=== PATIENT | male | born 1945 | race Caucasian/White ===

== ENCOUNTER 2019-10-29 00:50 | Emergency (ER) | payer MEDICARE ==
--- NOTE | 2019-10-29 01:11 | EDM.PDOC ---
ED HPI GENERAL MEDICAL PROBLEM - General Chief Complaint: Chest Pain Stated Complaint: CHEST PAIN Time Seen by Provider: 10/29/19 01:05 Source of Information: Reports: Patient History Limitations: Reports: No Limitations - History of Present Illness INITIAL COMMENTS - FREE TEXT/NARRATIVE: 74-year-old male presents to the ED after awakening from sleep with severe central chest pain and awareness of heart palpitations. Patient has known severe coronary artery disease having undergone triple coronary bypass surgery in June [address] [place] [address] Farrar. Since that time he has had intermittent bouts of paroxysmal atrial fibrillation. Patient states he awoke with chest pain and it was severe i.e. 10 out of 10. He did take a nitroglycerin tablet which did seem to alleviate a good deal of his pain. He was short of breath on minimal exertion. Perhaps slightly lightheaded and dizzy. Weakness in his lower extremities. Denies missing any of his usual doses of medications. Of note he is on amiodarone 200 mg twice daily ,a very large dose. Is on metoprolol extended release 50 mg daily. Is listed as being on Plavix as well. He is also on Eliquis 5 mg twice daily. Onset: Today Onset Date: 10/28/19 Onset Time: 11:30 Duration: Minutes:, Improving Location: Reports: Chest (Chest pain rating up into his jaw left shoulder and through to his back) Quality: Reports: Ache, Pressure (Deep ache pressure pain) Severity: Severe (Was severe 10 out of 10 now currently 3 out of 10.) Improves with: Reports: Other (Proved with rest and after taking nitroglycerin tablet) Worsens with: Reports: None Context: Reports: Other (Spontaneous occurrence after waking from sleep with this.). Denies: Activity, Exercise, Lifting, Sick Contact, Trauma Associated Symptoms: Reports: Chest Pain, Malaise, Shortness of Breath, Weakness. 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 (see below) (Generalized) Chest Pain Score (Numeric/FACES): 5 - Related Data Allergies Allergy/AdvReac Type Severity Reaction Status Date / Time atorvastatin [From Lipitor] Allergy Muscle Verified 11/11/18 10:36 Aches oxycodone Allergy Cannot Verified 06/04/19 10:36 Remember Home Meds: Home Meds Amiodarone [Cordarone] 5 mg PO BID 07/24/18 [History] Aspirin [[place] Aspirin] 81 mg PO DAILY 07/24/18 [History] Cholecalciferol (Vitamin D3) [Vitamin D3] 5,000 unit PO DAILY 07/24/18 [History] HYDROmorphone [Dilaudid] 4 mg PO Q6H PRN 07/24/18 [History] Metoprolol Succinate [Toprol XL 50mg] 50 mg PO DAILY 07/24/18 [History] Multivitamin [Multivitamins] 1 each PO DAILY 07/24/18 [History] Nitroglycerin [Nitrostat] 0.4 mg SL ASDIRECTED PRN 07/24/18 [History] Rosuvastatin [Crestor] 5 mg PO DAILY 07/24/18 [History] allopurinoL [Zyloprim] 300 mg PO DAILY 07/24/18 [History] Sertraline [Zoloft] 50 mg PO DAILY 10/08/18 [History] Apixaban [Eliquis] 5 mg PO BID 10/29/19 [History] Potassium Chloride [Klor-Con M10] 10 meq PO DAILY 10/29/19 [History] Torsemide [Demadex] 40 mg PO DAILY 10/29/19 [History] Past Medical History Cardiovascular History: Reports: Arrhythmia (Remain positive paroxysmal atrial fibrillation according to the patient), Bypass (Bypass carried out in June [address] Farrar at [facility] in [place]), Heart Failure (Torsemide daily), High Cholesterol, Hypertension, [place], SOB on Exertion Genitourinary History: Reports: BPH (Tamsulosin for this.) Musculoskeletal History: Reports: Back Pain, Chronic, Gout (Severe back pain. On Dilaudid 4 times daily), Osteoarthritis Endocrine/Metabolic History: Reports: Obesity/BMI 30+ Social & Family History - Living Situation & Occupation Living situation: Reports: Occupation: Retired ED ROS GENERAL - Review of Systems Review Of Systems: See Below Constitutional: Reports: Fatigue. Denies: Fever, Chills, Malaise HEENT: Reports: Glasses Respiratory: Reports: Shortness of Breath (Reading). Denies: Wheezing, Pleuritic Chest Pain Cardiovascular: Reports: Chest Pain, Blood Pressure Problem (See history of present illness), Dyspnea on Exertion, Edema, Lightheadedness, Palpitations. Denies: Claudication Endocrine: Reports: Fatigue (Minimally) GI/Abdominal: Reports: No Symptoms, Other (Has an umbilical hernia that does not bother him) : Reports: Frequency, Other ([place] x2BPH) Musculoskeletal: Reports: Back Pain (Severe back pain on pain medicine 4 times daily) Skin: Reports: Bruising (This is easily as he is on Plavix and Eliquis) Neurological: Reports: Dizziness (Dizzy tonight with the paroxysmal atrial fibrillation) Psychiatric: Reports: No Symptoms Hematologic/Lymphatic: Reports: No Symptoms Immunologic: Reports: No Symptoms ED EXAM, GENERAL - Physical Exam Exam: See Below Exam Limited By: No Limitations General Appearance: Alert, WD/WN, Mild Distress, Other (Temperature is 36.5 heart rate was 140 and irregular irregular on the monitor i.e. atrial fibrillation. Respiratory of 20 to 22/min with O2 sats 95% on room air BP 106/ 90) Eye Exam: Bilateral Eye: Normal Inspection, PERRL Throat/Mouth: Normal Inspection, Normal Lips, Normal Oropharynx Head: Atraumatic, Normocephalic Neck: Normal Inspection, Supple, Non-Tender, Full Range of Motion. No: Lymphadenopathy (L), Lymphadenopathy (R) Respiratory/Chest: No Accessory Muscle Use, Respiratory Distress (Tachypnea.), Rales (New faint crackles right base of the lung.) Cardiovascular: No Gallop, No JVD, No Murmur, No Rub, Irregularly Irregular (He is in atrial fibrillation with rapid ventricular rate up to 155/min), Other ( Evidence of midline sternotomy from previous bypass surgery.). No: Normal Peripheral Pulses, Regular Rate, Rhythm (Not palpable in his feet. Obscured by edema) Peripheral Pulses: 1+: Posterior Tibial (L), Posterior Tibial (R), Dorsalis Pedis (L), Dorsalis Pedis (R), 3+: Carotid (L), Carotid (R), Radial (L), Radial (R) GI/Abdominal: Normal Bowel Sounds (Early palpable in his feet due to edema.), Soft, Non-Tender, No Organomegaly, No Mass, Pelvis Stable, Other (He has 2 hernias one is an umbilical hernia which is easily reducible and does not bother him. He has a incisional hernia at the inferior portion of his coronary artery bypass surgery that is still slightly tender.) Extremities: Pedal Edema (2+ pitting edema little worse on the left side as compared to the right.). No: Joint Swelling Neurological: Alert, Oriented, CN II-XII Intact, Normal Cognition Psychiatric: Normal Affect, Normal Mood Skin Exam: Warm, Dry, Intact, Normal Color, No Rash EKG INTERPRETATION EKG Date: 10/29/19 Time: 00:58 Rhythm: A-Fib Rate (Beats/Min): 137 [place]: RAD-Right [place] Deviation (17) P-Wave: Absent QRS: Other (Left posterior fascicular block) ST-T: Other (Wave inversion V1 to V3 ST segment depression V4 ,5 and 6 with ischemia.) QT: Prolonged (Currently prolonged at 568) EKG Interpretation Comments: Abnormal ECG Course - Vital Signs Last Recorded V/S: Last Vital Signs Temp 36.5 C 10/29/19 01:05 Pulse 140 H 10/29/19 01:05 Resp 20 10/29/19 01:05 BP 106/90 10/29/19 01:05 Pulse Ox 95 10/29/19 01:05 - Orders/Labs/Meds Orders: Active Orders 24 hr Category Date Time Status EKG 12 Lead [EKG Documentation Completion] [RC] STAT Care 10/29/19 01:56 Active Oxygen Therapy [RC] ASDIRECTED Care 10/29/19 01:12 Active Peripheral IV Care [RC] . DIRECTED Care 10/29/19 01:13 Active Chest 1V Frontal [CR] Stat Exams 10/29/19 01:12 Taken Diltiazem [Cardizem] 100 mg Med 10/29/19 01:15 Active Sodium Chloride 0.9% [Normal Saline] 100 ml IV TITRATE Sodium Chloride 0.9% [Normal Saline] 1,000 ml Med 10/29/19 01:30 Active IV ASDIRECTED Sodium Chloride 0.9% [Saline Flush] Med 10/29/19 01:13 Active 10 ml FLUSH ASDIRECTED PRN Peripheral IV Insertion Adult [OM.PC] Stat Oth 10/29/19 01:12 Ordered Medication Orders Diltiazem HCl 100 mg/ Sodium (Chloride) 100 mls @ 10 mls/hr IV TITRATE [facility] Last Admin: 10/29/19 01:21 Dose: 10 mg/hr, 10 mls/hr Sodium Chloride (Normal Saline) 1,000 mls @ 100 mls/hr IV ASDIRECTED ADRIANA Last Admin: 10/29/19 01:39 Dose: 100 mls/hr Sodium Chloride (Saline Flush) 10 ml FLUSH ASDIRECTED PRN PRN Reason: Keep Vein Open Last Admin: 10/29/19 01:23 Dose: 10 ml Labs: Laboratory Tests 10/29/19 10/29/19 10/29/19 Range/Units 01:02 01:02 01:02 WBC 9.49 H (4.23-9.07) K/mm3 RBC 5.61 (4.63-6.08) M/mm3 Hgb 14.0 (13.7-17.5) gm/dl Hct 45.3 (40.1-51.0) % MCV 80.7 (79.0-92.2) fl MCH 25.0 L (25.7-32.2) pg MCHC 30.9 L (32.2-35.5) g/dl RDW Std Deviation 54.6 H (35.1-43.9) fL Plt Count 280 (163-337) K/mm3 MPV 10.9 (9.4-12.3) fl Neut % (Auto) 59.4 (34.0-67.9) % Lymph % (Auto) 25.7 (21.8-53.1) % Martin % (Auto) 11.1 (5.3-12.2) % Eos % (Auto) 3.2 (0.8-7.0) Baso % (Auto) 0.5 (0.1-1.2) % Neut # (Auto) 5.64 H (1.78-5.38) K/mm3 Lymph # (Auto) 2.44 (1.32-3.57) K/mm3 Martin # (Auto) 1.05 H (0.30-0.82) K/mm3 Eos # (Auto) 0.30 (0.04-0.54) K/mm3 Baso # (Auto) 0.05 (0.01-0.08) K/mm3 PT 9.9 (9.7-12.0) SECONDS INR 0.93 APTT (22-31) SECONDS Sodium 144 (136-145) mEq/L Potassium 4.0 (3.5-5.1) mEq/L Chloride 108 H (98-107) mEq/L Carbon Dioxide 26 (21-32) mEq/L Anion Gap 14.0 (5-15) BUN 13 (7-18) mg/dL Creatinine 1.3 (0.7-1.3) mg/dL Est Cr Clr Drug Dosing 52.25 mL/min Estimated GFR (MDRD) 54 (>60) mL/min BUN/Creatinine Ratio 10.0 L (14-18) Glucose 119 H (83-115) mg/dL Calcium 8.6 (8.5-10.1) mg/dL Magnesium 2.4 (1.8-2.4) mg/dl Total Bilirubin 0.3 (0.2-1.0) mg/dL AST 18 (15-37) U/L ALT 21 (16-63) U/L Alkaline Phosphatase 63 (46-116) U/L CK-MB (CK-2) 1.0 (0-3.6) ng/ml Troponin I < 0.017 (0.00-0.056) ng/mL NT-Pro-B Natriuret Pep (0-125) pg/mL Total Protein 7.4 (6.4-8.2) g/dl Albumin 3.5 (3.4-5.0) g/dl Globulin 3.9 gm/dL Albumin/Globulin Ratio 0.9 L (1-2) 10/29/19 10/29/19 Range/Units 01:02 01:02 WBC (4.23-9.07) K/mm3 RBC (4.63-6.08) M/mm3 Hgb (13.7-17.5) gm/dl Hct (40.1-51.0) % MCV (79.0-92.2) fl MCH (25.7-32.2) pg MCHC (32.2-35.5) g/dl RDW Std Deviation (35.1-43.9) fL Plt Count (163-337) K/mm3 MPV (9.4-12.3) fl Neut % (Auto) (34.0-67.9) % Lymph % (Auto) (21.8-53.1) % Martin % (Auto) (5.3-12.2) % Eos % (Auto) (0.8-7.0) Baso % (Auto) (0.1-1.2) % Neut # (Auto) (1.78-5.38) K/mm3 Lymph # (Auto) (1.32-3.57) K/mm3 Martin # (Auto) (0.30-0.82) K/mm3 Eos # (Auto) (0.04-0.54) K/mm3 Baso # (Auto) (0.01-0.08) K/mm3 PT (9.7-12.0) SECONDS INR APTT 26 (22-31) SECONDS Sodium (136-145) mEq/L Potassium (3.5-5.1) mEq/L Chloride (98-107) mEq/L Carbon Dioxide (21-32) mEq/L Anion Gap (5-15) BUN (7-18) mg/dL Creatinine (0.7-1.3) mg/dL Est Cr Clr Drug Dosing mL/min Estimated GFR (MDRD) (>60) mL/min BUN/Creatinine Ratio (14-18) Glucose (83-115) mg/dL Calcium (8.5-10.1) mg/dL Magnesium (1.8-2.4) mg/dl Total Bilirubin (0.2-1.0) mg/dL AST (15-37) U/L ALT (16-63) U/L Alkaline Phosphatase (46-116) U/L CK-MB (CK-2) (0-3.6) ng/ml Troponin I (0.00-0.056) ng/mL NT-Pro-B Natriuret Pep 363 H (0-125) pg/mL Total Protein (6.4-8.2) g/dl Albumin (3.4-5.0) g/dl Globulin gm/dL Albumin/Globulin Ratio (1-2) Meds: Medications Generic Name Dose Route Start Last Admin Trade Name Freq PRN Reason Stop Dose Admin Diltiazem HCl 100 mg/ Sodium 100 mls @ 10 mls/hr 10/29/19 01:15 10/29/19 01: 21 Chloride IV 10 mg/hr TITRATE ADRIANA 10 mls/hr Administration 10 MG/HR Sodium Chloride 1,000 mls @ 100 mls/hr 10/29/19 01:30 10/29/19 01:39 Normal Saline IV 100 mls/hr ASDIRECTED ADRIANA Administration Sodium Chloride 10 ml 10/29/19 01:13 10/29/19 01:23 Saline Flush FLUSH 10 ml ASDIRECTED PRN Administration Keep Vein Open Discontinued Medications Generic Name Dose Route Start Last Admin Trade Name Laith PRN Reason Stop Dose Admin Diltiazem HCl 10 mg 10/29/19 01:13 10/29/19 01:21 Cardizem IVPUSH 10/29/19 01:14 10 mg ONETIME ONE Administration - Radiology Interpretation Free Text/Narrative:: 74-year-old male presents to the ED with awakening from sleep with chest pain and a rate irregular rapid pulse. He states this is occurred a few times since he had coronary bypass surgery in June 2018 at. At that time he had triple bypass surgery carried out for significant coronary disease. He is currently on metoprolol extended release or succinate 50 mg daily and amiodarone 200 mg twice daily i.e. very high doses. ECG suggest there may be some ischemia in the apical lateral wall. There is T wave inversion from V1 to V3 as well. It is complicated because of a right bundle branch block and a left posterior fascicular block pattern. Pain is down to 3 out of 10 after he took a nitroglycerin tablet in route to [place] from [place] where he resides. drove him to the hospital. Patient is on Eliquis 5 mg twice daily and Plavix 75 mg daily. States his vital signs are stable at this point time we will try low-dose Cardizem initially with a 10 mg IV bolus and then 5 mg/h if we can bring this rate under control. In between times he usually is in sinus rhythm. History of congestive failure and takes torsemide daily and potassium. - Re-Assessments/Exams Free Text/Narrative Re-Assessment/Exam: 10/29/19 01:36 atrial fibrillation came down from 152 as low as 91 for short period of time after the 10 mg IV bolus. Blood pressure is sustained at 109/ 86. Sats are 97% on room air. He will be started on Cardizem drip at 10 mg/h. We will have to go slow with the Cardizem due to the large dose of amiodarone that he is taking. States his resting heart rate is usually 65. Chest x-ray reveals moderate cardiomegaly with very slight vascular congestion. There are extra wires on the left side of the chest and he states that he has a recorder that is implanted and gets red once monthly. 10/29/19:0148: She has converted back to sinus rhythm in the 60s. He feels markedly improved. I will repeat his ECG in about 10 to 15 minutes 10/29/19: 0205: ECG #2 shows sinus rhythm at 64/min. There is a first-degree AV block. Nonspecific T wave inversion V2. There is an incomplete right bundle branch block pattern. There are Q waves in leads III and aVF suggesting an old inferior wall myocardial infarction. There is decreased voltage throughout the precordial leads. QTC is mildly prolonged at 463. No signs of ischemia 10/29/19 02:12Hematology reveals a normal white count at 9.49 with auto differential of 59.4%. Hemoglobin is 14.0 with hematocrit of 45.3. Platelet count is normal at 280,000. PT is 9.9 with an INR of 0.93. PTT is 26. Sodium 144 with a potassium of 4.0. Chloride 108 with a bicarb of 26. Anion gap is 14.0 BUN is 13 with a creatinine of 1.3. GFR is 54 glucose 119 with a calcium of 8.6. Magnesium normal at 2.4 liver function normal CK-MB fraction is 1.0 with a troponin I of less than 0.017. BNP is 363 minimally elevated total protein 7.4 with an albumin fraction of 3.5. 10/29/19 02:32 I had him walk the halls aggressively with improvement stress test and he had no further chest pressure or pain. His left knee hurting more than anything. He will be discharged to home. He will not change any medications at this point time. 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 Departure - Departure Time of Disposition: 02:32 Disposition: Home, Self-Care 01 Reason for Transfer *Q: Other Condition: Fair Clinical Impression: Paroxysmal atrial fibrillation with RVR, Angina pectoris, unspecified Instructions: Atrial Fibrillation, [id number] Referrals: PCP,Not In Area [Primary Care Provider] - Forms: ED Department Discharge Additional Instructions: Valuation in the emergency room this morning in regards to awakening from sleep with terrible central chest pain. Identified yourself that you had a very irregular pulse. You have a history of paroxysmal atrial fibrillation with rapid ventricular rate. When you came into the ED your heart rate was elevated into the 150s and 160s. You were therefore treated with intravenous medication Cardizem 10 mg IV bolus and then 10 mg/h. Within approximately half hour of the introduction of this medication your heart rate converted back to regular sinus rhythm. He remained in sinus rhythm for the next half hour. Chest pain dissipated completely after conversion back to sinus or regular rhythm. You are already on appropriate medications to thin your blood and prevent stroke i.e. Eliquis. You are also on fairly high doses of amiodarone 200 mg twice daily with metoprolol extended release tablet 50 mg daily both are designed for blood pressure control as well as to keep your heart in regular rhythm. All of the lab work done through the emergency room today was completely normal. There was no abnormalities in the potassium values or the magnesium values. Therefore I have no reason for you to have gone into atrial fibrillation but that is is not uncommon in patients who have coronary artery disease and have had previous heart surgery. Continue all current medications as previously prescribed. Up with truck shop supervisor if any further problems occur or return to the ED. Sepsis Event Note - Focused Exam Vital Signs: Vital Signs Temp Pulse Resp BP Pulse Ox 10/29/19 01:05 36.5 C 140 H 20 106/90 95 Date Exam was Performed: 10/29/19 Time Exam was Performed: 02:49 - My Orders Last 24 Hours: My Active Orders 10/29/19 01:12 Oxygen Therapy [RC] ASDIRECTED Chest 1V Frontal [CR] Stat Peripheral IV Insertion Adult [OM.PC] Stat 10/29/19 01:13 Peripheral IV Care [RC] . DIRECTED Sodium Chloride 0.9% [Saline Flush] 10 ml FLUSH ASDIRECTED PRN 10/29/19 01:15 Diltiazem [Cardizem] 100 mg Sodium Chloride 0.9% [Normal Saline] 100 ml IV TITRATE 10/29/19 01:30 Sodium Chloride 0.9% [Normal Saline] 1,000 ml IV ASDIRECTED 10/29/19 01:56 EKG 12 Lead [EKG Documentation Completion] [RC] STAT - Assessment/Plan Last 24 Hours: My Active Orders 10/29/19 01:12 Oxygen Therapy [RC] ASDIRECTED Chest 1V Frontal [CR] Stat Peripheral IV Insertion Adult [OM.PC] Stat 10/29/19 01:13 Peripheral IV Care [RC] . DIRECTED Sodium Chloride 0.9% [Saline Flush] 10 ml FLUSH ASDIRECTED PRN 10/29/19 01:15 Diltiazem [Cardizem] 100 mg Sodium Chloride 0.9% [Normal Saline] 100 ml IV TITRATE 10/29/19 01:30 Sodium Chloride 0.9% [Normal Saline] 1,000 ml IV ASDIRECTED 10/29/19 01:56 EKG 12 Lead [EKG Documentation Completion] [RC] STAT
[2019-10-29] MEDS ORDERED: Sodium Chloride 0.9% 10 ML Syringe FLUSH PRN (01:13)
[2019-10-29] MEDS ORDERED: Diltiazem 50 MG/10 ML SDV IVPUSH ONE (01:13)
[2019-10-29] MEDS ORDERED: Diltiazem 100 MG in Sodium Chloride 0.9% 100 ML IV SCH (01:15)
[2019-10-29] MEDS ORDERED: Sodium Chloride 0.9% 1,000 ML IV SCH (01:30)
--- NOTE | 2019-10-29 08:50 | CR ---
Chest: Portable view of the chest was obtained. Comparison: No prior chest imaging is available. Heart size is within normal limits for portable technique. Tortuous thoracic aorta is seen. Sternotomy wires are noted. Lungs are clear with no acute parenchymal change. No acute bony abnormality is appreciated. Impression: 1. Prior sternotomy. 2. Nothing acute is otherwise seen on portable chest x-ray. Diagnostic code #2 This report was dictated in MDT
== END 2019-10-29 02:41 | disposition home or self-care (01) ==
LOC: JD.ED 00:50
DX: I48.0 Paroxysmal atrial fibrillation (principal); I20.9 Angina pectoris, unspecified; Z88.8 Allergy status to other drugs, medicaments and biological substances; Z88.5 Allergy status to narcotic agent; E66.9 Obesity, unspecified; Z68.35 Body mass index [BMI] 35.0-35.9, adult; Z79.82 Long term (current) use of aspirin; Z79.899 Other long term (current) drug therapy; Z79.01 Long term (current) use of anticoagulants
CPT/HCPCS: 36415; 71045; 80053; 82553; 83735; 83880; 84484; 85025; 85610; 85730; 93005; 96361; 96365; 99285; J3490; J7030; J7050

== ENCOUNTER 2020-06-10 16:33 | Emergency (ER) | payer MEDICARE ==
--- NOTE | 2020-06-10 16:57 | EDM.PDOC ---
ED HPI GENERAL MEDICAL PROBLEM - General Chief Complaint: Respiratory Problem Stated Complaint: SOB/CHEST PAIN Time Seen by Provider: 06/10/20 16:45 - History of Present Illness INITIAL COMMENTS - FREE TEXT/NARRATIVE: 74-year-old male presents the emergency room generally not feeling well. Patient has a history of coronary artery disease and atrial fibrillation he is on Plavix Eliquis and aspirin. He did take his baby aspirin today. He has intermittent chest discomfort very mild. And he is he is weaker than normal. His noticed that his lower extremity edema is much worse than normal. Patient had coronary bypass surgery nearly 2 years ago, June 23, 2018 he has not had any nausea vomiting or chest discomfort like he had before his bypass surgery. Patient is on multiple medications he assures us that has not changed since his last visit but he cannot recite exactly what he is taking. Generalized Pain Score (Numeric/FACES): 6 - Related Data Allergies Allergy/AdvReac Type Severity Reaction Status Date / Time atorvastatin [From Lipitor] Allergy Muscle Verified 11/11/18 10:36 Aches oxycodone Allergy Cannot Verified 11/11/18 10:36 Remember Home Meds: Home Meds Amiodarone [Cordarone] 5 mg PO BID 07/24/18 [History] Aspirin [[place] Aspirin] 81 mg PO DAILY 07/24/18 [History] Cholecalciferol (Vitamin D3) [Vitamin D3] 5,000 unit PO DAILY 07/24/18 [History] HYDROmorphone [Dilaudid] 4 mg PO Q6H PRN 07/24/18 [History] Metoprolol Succinate [Toprol XL 50mg] 50 mg PO DAILY 07/24/18 [History] Multivitamin [Multivitamins] 1 each PO DAILY 07/24/18 [History] Nitroglycerin [Nitrostat] 0.4 mg SL ASDIRECTED PRN 07/24/18 [History] Rosuvastatin [Crestor] 5 mg PO DAILY 07/24/18 [History] allopurinoL [Zyloprim] 300 mg PO DAILY 07/24/18 [History] Sertraline [Zoloft] 50 mg PO DAILY 10/08/18 [History] Apixaban [Eliquis] 5 mg PO BID 10/29/19 [History] Potassium Chloride [Klor-Con M10] 10 meq PO DAILY 10/29/19 [History] Torsemide [Demadex] 40 mg PO DAILY 10/29/19 [History] Past Medical History HEENT History: Reports: Hard of Hearing, Impaired Vision Other HEENT History: uses hearing aid Cardiovascular History: Reports: Arrhythmia, Bypass, Heart Failure, High Cholesterol, Hypertension, CA, SOB on Exertion Respiratory History: Reports: COPD Genitourinary History: Reports: BPH Musculoskeletal History: Reports: Back Pain, Chronic, Gout, Osteoarthritis Psychiatric History: Reports: Anxiety, Depression Endocrine/Metabolic History: Reports: Obesity/BMI 30+ - Past Surgical History Cardiovascular Surgical History: Reports: Coronary Artery Bypass, Other (See Below) Other Cardiovascular Surgeries/Procedures: venous implant/ filter GI Surgical History: Reports: Cholecystectomy, Colonoscopy, EGD Musculoskeletal Surgical History: Reports: Arthroscopic Knee, Knee Replacement Social & Family History - Tobacco Use Tobacco Use Status *Q: Never Tobacco User - Caffeine Use Caffeine Use: Reports: Coffee - Recreational Drug Use Recreational Drug Use: No - Living Situation & Occupation Living situation: Reports: Occupation: Retired ED ROS GENERAL - Review of Systems Review Of Systems: See Below Constitutional: Reports: Fatigue HEENT: Reports: No Symptoms Respiratory: Reports: Shortness of Breath. Denies: Cough, Sputum Cardiovascular: Reports: Chest Pain (Mild), Edema Endocrine: Reports: No Symptoms GI/Abdominal: Reports: No Symptoms : Reports: No Symptoms Musculoskeletal: Reports: No Symptoms Skin: Reports: No Symptoms Neurological: Reports: No Symptoms Psychiatric: Reports: No Symptoms ED EXAM, GENERAL - Physical Exam Exam: See Below Exam Limited By: No Limitations General Appearance: Alert, No Apparent Distress Head: Atraumatic, Normocephalic Neck: Normal Inspection, Supple, Non-Tender, Full Range of Motion. No: Lymphadenopathy (L), Lymphadenopathy (R) Respiratory/Chest: No Respiratory Distress, Crackles (Noted in both lung bases). No: Rhonchi, Wheezing Cardiovascular: Regular Rate, Rhythm, No Murmur, Other (2+ pitting edema bilateral lower extremities) GI/Abdominal: Normal Bowel Sounds, Soft, Non-Tender, Other (Obese) Back Exam: Normal Inspection. No: CVA Tenderness (L), CVA Tenderness (R) Extremities: Pedal Edema (2+ pitting) Neurological: Alert, Oriented, Normal Cognition Psychiatric: Normal Affect, Normal Mood Skin Exam: Warm, Dry, Intact #1 Interpretation EKG Date: 06/10/20 Rhythm: Other (With first-degree AV block) P-Wave: Present QRS: RBBB ST-T: Other (Nonspecific nondiagnostic changes) QT: Normal Comparison: Other: (Minimal change from October of this last year QRS widening noted in V1 V2 and V3 otherwise no significant change everything points to right bundle branch block) Course - Vital Signs Last Recorded V/S: Last Vital Signs Temp 36.8 C 06/10/20 16:43 Pulse 80 06/10/20 16:43 Resp 15 06/10/20 16:43 BP 190/104 H 06/10/20 16:43 Pulse Ox 96 06/10/20 16:43 - Orders/Labs/Meds Orders: Active Orders 24 hr Category Date Time Status EKG Documentation Completion [RC] ASDIRECTED Care 06/10/20 16:48 Active EKG Documentation Completion [RC] STAT Care 06/10/20 17:38 Active Chest 1V Frontal [CR] Stat Exams 06/10/20 16:48 Taken EKG 12 Lead [EK] Stat Ther 06/10/20 16:48 Ordered Labs: Laboratory Tests 06/10/20 06/10/20 06/10/20 Range/Units 16:45 16:45 16:45 WBC 14.06 H (4.23-9.07) K/mm3 RBC 5.48 (4.63-6.08) M/mm3 Hgb 14.4 (13.7-17.5) gm/dl Hct 46.1 (40.1-51.0) % MCV 84.1 D (79.0-92.2) fl MCH 26.3 (25.7-32.2) pg MCHC 31.2 L (32.2-35.5) g/dl RDW Std Deviation 47.9 H (35.1-43.9) fL Plt Count 283 (163-337) K/mm3 MPV 10.6 (9.4-12.3) fl Neut % (Auto) 77.1 H (34.0-67.9) % Lymph % (Auto) 12.6 L (21.8-53.1) % Dane % (Auto) 7.9 (5.3-12.2) % Eos % (Auto) 1.8 (0.8-7.0) Baso % (Auto) 0.4 (0.1-1.2) % Neut # (Auto) 10.85 H (1.78-5.38) K/mm3 Lymph # (Auto) 1.77 (1.32-3.57) K/mm3 Dane # (Auto) 1.11 H (0.30-0.82) K/mm3 Eos # (Auto) 0.25 (0.04-0.54) K/mm3 Baso # (Auto) 0.05 (0.01-0.08) K/mm3 Manual Slide Review Normal smear PT 10.1 (9.7-12.0) SECONDS INR 0.94 APTT 25.7 (21.7-31.4) SECONDS Sodium 139 (136-145) mEq/L Potassium 3.9 (3.5-5.1) mEq/L Chloride 102 (98-107) mEq/L Carbon Dioxide 27 (21-32) mEq/L Anion Gap 13.9 (5-15) BUN 14 (7-18) mg/dL Creatinine 1.3 (0.7-1.3) mg/dL Est Cr Clr Drug Dosing 55.55 mL/min Estimated GFR (MDRD) 54 (>60) mL/min BUN/Creatinine Ratio 10.8 L (14-18) Glucose 122 H (83-115) mg/dL Calcium 9.2 (8.5-10.1) mg/dL Total Bilirubin 0.5 (0.2-1.0) mg/dL AST 22 (15-37) U/L ALT 29 (16-63) U/L Alkaline Phosphatase 66 (46-116) U/L Troponin I < 0.017 (0.00-0.056) ng/mL NT-Pro-B Natriuret Pep (0-125) pg/mL Total Protein 7.9 (6.4-8.2) g/dl Albumin 3.9 (3.4-5.0) g/dl Globulin 4.0 gm/dL Albumin/Globulin Ratio 1.0 (1-2) 06/10/20 Range/Units 16:45 WBC (4.23-9.07) K/mm3 RBC (4.63-6.08) M/mm3 Hgb (13.7-17.5) gm/dl Hct (40.1-51.0) % MCV (79.0-92.2) fl MCH (25.7-32.2) pg MCHC (32.2-35.5) g/dl RDW Std Deviation (35.1-43.9) fL Plt Count (163-337) K/mm3 MPV (9.4-12.3) fl Neut % (Auto) (34.0-67.9) % Lymph % (Auto) (21.8-53.1) % Dane % (Auto) (5.3-12.2) % Eos % (Auto) (0.8-7.0) Baso % (Auto) (0.1-1.2) % Neut # (Auto) (1.78-5.38) K/mm3 Lymph # (Auto) (1.32-3.57) K/mm3 Dane # (Auto) (0.30-0.82) K/mm3 Eos # (Auto) (0.04-0.54) K/mm3 Baso # (Auto) (0.01-0.08) K/mm3 Manual Slide Review PT (9.7-12.0) SECONDS INR APTT (21.7-31.4) SECONDS Sodium (136-145) mEq/L Potassium (3.5-5.1) mEq/L Chloride (98-107) mEq/L Carbon Dioxide (21-32) mEq/L Anion Gap (5-15) BUN (7-18) mg/dL Creatinine (0.7-1.3) mg/dL Est Cr Clr Drug Dosing mL/min Estimated GFR (MDRD) (>60) mL/min BUN/Creatinine Ratio (14-18) Glucose (83-115) mg/dL Calcium (8.5-10.1) mg/dL Total Bilirubin (0.2-1.0) mg/dL AST (15-37) U/L ALT (16-63) U/L Alkaline Phosphatase (46-116) U/L Troponin I (0.00-0.056) ng/mL NT-Pro-B Natriuret Pep 293 H (0-125) pg/mL Total Protein (6.4-8.2) g/dl Albumin (3.4-5.0) g/dl Globulin gm/dL Albumin/Globulin Ratio (1-2) Meds: Medications Discontinued Medications Generic Name Dose Route Start Last Admin Trade Name Laith PRN Reason Stop Dose Admin Aspirin 324 mg 06/10/20 17:05 06/10/20 17:18 Aspirin PO 06/10/20 17:06 324 mg ONETIME ONE Administration Furosemide 60 mg 06/10/20 17:05 06/10/20 17:18 Lasix IVPUSH 06/10/20 17:06 60 mg NOW ONE Administration Potassium Chloride 40 meq 06/10/20 18:38 Klor-Con M20 PO 06/10/20 18:39 ONETIME ONE - Re-Assessments/Exams Free Text/Narrative Re-Assessment/Exam: 06/10/20 17:28 I ordered Lasix and the patient just received it. I did discuss with the patient how he is feeling says is feeling a lot better clearly Lasix does not have enough time to do anything. Chest x-ray was done which shows some small bilateral pleural effusions subtle pulmonary congestion. And cardiomegaly. 06/10/20 18:34 Patient has well over 700 cc out and feels much much better he is having no suggestion of any chest discomfort tightness or shortness of breath. 06/10/20 19:15 Patient has had another 600 cc out in addition to over 700 cc he had out earlier he continues to feel better and would like to go home. We will discharge him home no change in his current medications he should follow-up with his regular doctor this next week. Departure - Departure Time of Disposition: 19:15 Disposition: Home, Self-Care 01 Clinical Impression: Congestive heart failure - Discharge Information Referrals: PCP,Not In Area [Primary Care Provider] - Forms: ED Department Discharge Additional Instructions: Return to the emergency room with any questions problems or worsening symptoms. Follow-up with your regular physician or your heart doctor this next week. Continue all your current medications as before. Sepsis Event Note (ED) - Evaluation Sepsis Screening Result: No Definite Risk - Focused Exam Vital Signs: Vital Signs Temp Pulse Resp BP Pulse Ox 06/10/20 16:43 36.8 C 80 15 190/104 H 96 - My Orders Last 24 Hours: My Active Orders 06/10/20 16:48 EKG Documentation Completion [RC] ASDIRECTED Chest 1V Frontal [CR] Stat EKG 12 Lead [EK] Stat 06/10/20 17:38 EKG Documentation Completion [RC] STAT - Assessment/Plan Last 24 Hours: My Active Orders 06/10/20 16:48 EKG Documentation Completion [RC] ASDIRECTED Chest 1V Frontal [CR] Stat EKG 12 Lead [EK] Stat 06/10/20 17:38 EKG Documentation Completion [RC] STAT
[2020-06-10] MEDS ORDERED: Aspirin 81 MG Tab.Chew PO ONE (17:05)
[2020-06-10] MEDS ORDERED: Furosemide 40 MG/4 ML VIAL IVPUSH ONE (17:05)
[2020-06-10] MEDS ORDERED: Potassium Chloride 20 MEQ Tab.ER PO ONE (18:38)
--- NOTE | 2020-06-11 11:28 | CR ---
Chest: Portable view of the chest was obtained. Comparison: Prior chest x-ray of 10/29/19. Findings: Previous sternotomy is noted. Heart is within normal limits for portable technique. Tortuous thoracic aorta is seen. Lungs show no acute parenchymal change. Bony structures show prior surgery within the left shoulder. Impression: 1. Findings as noted above. 2. Nothing acute is appreciated. Diagnostic code #2
== END 2020-06-10 19:38 | disposition home or self-care (01) ==
LOC: JD.ED 16:33
DX: I11.0 Hypertensive heart disease with heart failure (principal); I50.9 Heart failure, unspecified; E78.00 Pure hypercholesterolemia, unspecified; I48.91 Unspecified atrial fibrillation; I25.2 Old myocardial infarction; J44.9 Chronic obstructive pulmonary disease, unspecified; F41.9 Anxiety disorder, unspecified; F32.9 Major depressive disorder, single episode, unspecified; E66.9 Obesity, unspecified; Z68.39 Body mass index [BMI] 39.0-39.9, adult; Z95.1 Presence of aortocoronary bypass graft; Z88.8 Allergy status to other drugs, medicaments and biological substances; Z88.5 Allergy status to narcotic agent; Z79.82 Long term (current) use of aspirin; Z79.899 Other long term (current) drug therapy; Z79.01 Long term (current) use of anticoagulants; Z79.02 Long term (current) use of antithrombotics/antiplatelets
CPT/HCPCS: 36415; 71045; 80053; 83880; 84484; 85025; 85610; 85730; 93005; 96374; 99285; A9270; J1940; 93010; 99284

== ENCOUNTER 2020-07-29 18:18 | Emergency (ER) | payer MEDICARE ==
[2020-07-29] MEDS ORDERED: Diltiazem 50 MG/10 ML SDV IVPUSH ONE ×2 (18:35→19:01)
--- NOTE | 2020-07-29 18:39 | EDM.PDOC ---
<Gil Giron - Last Filed: 07/29/20 22:48> ED HPI GENERAL MEDICAL PROBLEM - General Chief Complaint: Chest Pain Stated Complaint: CHEST PAIN /SWEATING/NECK PAIN Time Seen by Provider: 07/29/20 18:24 - Related Data Allergies Allergy/AdvReac Type Severity Reaction Status Date / Time atorvastatin [From Lipitor] Allergy Muscle Verified 07/29/20 18:31 Aches oxycodone Allergy Cannot Verified 07/29/20 18:31 Remember Home Meds: Home Meds Aspirin [Piatt Aspirin] 81 mg PO DAILY 07/24/18 [History] Cholecalciferol (Vitamin D3) [Vitamin D3] 5,000 unit PO DAILY 07/24/18 [History] HYDROmorphone [Dilaudid] 4 mg PO Q6H PRN 07/24/18 [History] Metoprolol Succinate [Toprol XL 50mg] 50 mg PO DAILY 07/24/18 [History] Multivitamin [Multivitamins] 1 each PO DAILY 07/24/18 [History] Nitroglycerin [Nitrostat] 0.4 mg SL ASDIRECTED PRN 07/24/18 [History] Rosuvastatin [Crestor] 5 mg PO DAILY 07/24/18 [History] Sertraline [Zoloft] 50 mg PO DAILY 10/08/18 [History] Apixaban [Eliquis] 5 mg PO BID 10/29/19 [History] Potassium Chloride [Klor-Con M10] 10 meq PO DAILY 10/29/19 [History] Torsemide [Demadex] 40 mg PO DAILY 10/29/19 [History] amLODIPine [Norvasc] 2.5 mg PO DAILY 07/29/20 [History] dilTIAZem HCL [Diltiazem 24Hr ER] 1 cap PO QAM #14 cap.er.24h 07/29/20 [Rx] Course - Re-Assessments/Exams Free Text/Narrative Re-Assessment/Exam: 07/29/20 21:[address] Segal. 07/29/20 22:48 The patient's heart rate fell under 100, on average, more than an hour ago, however, it would initially go up again if the patient got up, however, his Cardizem drip was subsequently discontinued, and his heart rate is currently 88 bpm while the patient is on the gurney, but up to 145 when he stood up. 07/29/20 23:00 The above situation was discussed with the patient and his . The patient states that he has been on oral diltiazem in the past. 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 Ziegler, had talked about putting him back on it, but for what ever reason did not. I think the patient would be best served if I were to start him on some diltiazem CD 120 mg here in the ED, then submit a prescription for the same, that he can start tomorrow morning. I would then have him contact Dr. Ziegler's office first thing Saturday. Both the patient and his are agreeable with this plan. Departure - Departure Time of Disposition: 23:02 Disposition: Home, Self-Care 01 Condition: Good Clinical Impression: Paroxysmal atrial fibrillation with RVR Prescriptions: dilTIAZem HCL [Diltiazem 24Hr ER] 1 cap PO QAM #14 cap.er.24h Instructions: Atrial Fibrillation, [id number] Referrals: Nathen Nieto MD [Ordering Only Provider] - Jackie Ziegler MD [Ordering Only Provider] - Forms: ED Department Discharge Additional Instructions: You were seen in the emergency room for a rapid heartbeat with chest discomfort lightheadedness, and sweatiness. Work-up in the ER included numerous blood tests, a chest x-ray, and an ECG. Your work-up found you to be in atrial fibrillation with a rapid ventricular response. The remainder of your work-up was unremarkable. Your heart rate was brought under control with IV diltiazem, however, once it was discontinued, your heart rate would go up again whenever you stood up. You have therefore been started on long-acting oral diltiazem CD. A prescription for diltiazem CD has been sent to the [facility], located just south and across the [address] from [facility]. Take 1 capsule of diltiazem CD every morning, starting tomorrow morning, 07/30/2020, as prescribed. Contact the office of your outside installation machinist, Dr. Jackie Ziegler, first thing 08/01/2020, to notify her of the current situation, and be sure that she wants you to continue on the diltiazem CD. If any other problems, please do not hesitate to return to the ER. <Tacho Segal - Last Filed: 08/01/20 07:11> ED HPI GENERAL MEDICAL PROBLEM - General Source of Information: Reports: Patient History Limitations: Reports: No Limitations - History of Present Illness INITIAL COMMENTS - FREE TEXT/NARRATIVE: 75-year-old male attends the ED with palpitations in his chest with rapid heart rate. He states it started about 15 minutes before coming to the ED. He has experienced similar events on 3 or 4 occasions since his triple bypass surgery was carried out in June [address] [place] [address] Farrar. He has intermittent bouts of atrial fibrillation with RVR. Associated left-sided precordial chest discomfort with no radiation to his back neck or shoulder. Lightheaded and dizzy. Broke out in a cold sweat. On arrival in the ED his heart rate is in the 150s with wide-complex tachycardia due to a right bundle branch block. I checked my notes and I have used Cardizem in the past to bring his rhythm under control. Of note he is on low-dose amiodarone as well. He states he felt well up until this event occurred. It started about 20 minutes after eating his supper meal. No associated nausea or vomiting at this time. Patient denies any history of COVID-19 illness. He states no recent changes to any of his medications. Of note the patient remains on Eliquis 5 mg twice daily because of paroxysmal atrial fib. Onset: Today, Sudden Onset Date: 07/29/20 Onset Time: 18:15 Duration: Minutes: Location: Reports: Chest (Aware of palpitations with rapid heart rate associate with left precordial chest discomfort development of diaphoresis and mild lightheadedness. Associated mild shortness of breath as well.) Quality: Reports: Other (Palpitations with rapid heart rate with left precordial chest discomfort) Severity: Moderate Improves with: Reports: None Worsens with: Reports: None Context: Denies: Activity, Exercise, Lifting, Sick Contact, Trauma, Other Associated Symptoms: Reports: Chest Pain, Diaphoresis, Shortness of Breath, Weakness. 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 None.) Chest Pain Score (Numeric/FACES): 6 Past Medical History HEENT History: Reports: Hard of Hearing, Impaired Vision Other HEENT History: uses hearing aid Cardiovascular History: Reports: Afib (Paroxysmal atrial fibrillation with rapid ventricular rate), Arrhythmia, Bypass (Triple bypass [place] Dr. [place] Heart Failure, High Cholesterol, Hypertension, [place], SOB on Exertion Respiratory History: Reports: COPD Genitourinary History: Reports: BPH Musculoskeletal History: Reports: Back Pain, Chronic, Gout, Osteoarthritis Psychiatric History: Reports: Anxiety, Depression Endocrine/Metabolic History: Reports: Obesity/BMI 30+ - Past Surgical History Cardiovascular Surgical History: Reports: Coronary Artery Bypass, Other (See Below) Other Cardiovascular Surgeries/Procedures: venous implant/ filter GI Surgical History: Reports: Cholecystectomy, Colonoscopy, EGD Musculoskeletal Surgical History: Reports: Arthroscopic Knee, Knee Replacement Social & Family History - Caffeine Use Caffeine Use: Reports: Coffee - Living Situation & Occupation Living situation: Reports: Occupation: Retired ED ROS GENERAL - Review of Systems Review Of Systems: See Below Constitutional: Reports: Malaise, Weakness, Fatigue. Denies: Fever, Chills, Decreased Appetite (See onset of this illness.), Weight Loss HEENT: Reports: Glasses Respiratory: Reports: Shortness of Breath. Denies: Wheezing, Pleuritic Chest Pain (Gain with onset of illness today.), Cough, Sputum, Hemoptysis Cardiovascular: Reports: Chest Pain, Blood Pressure Problem (Precordial discomfort.), Dyspnea on Exertion (edema ), Edema (Chronic lower extremity occasional lightheadedness if he gets up too fast ), Lightheadedness (Usually well controlled with the medicines he is on.), Palpitations (Sometimes ). Denies: Claudication, Orthopnea Endocrine: Reports: Fatigue (on occasion.) GI/Abdominal: Reports: No Symptoms : Reports: Frequency, Other (Teary at times) Musculoskeletal: Reports: Neck Pain, Shoulder Pain, Back Pain (x2 or 3.), Joint Pain (Hips at times.) Skin: Reports: No Symptoms, Other (No chronic dermatoses.) Neurological: Reports: Dizziness (Usual dizziness with standing up too fast.) Psychiatric: Reports: No Symptoms Hematologic/Lymphatic: Reports: No Symptoms Immunologic: Reports: No Symptoms ED EXAM, GENERAL - Physical Exam Exam: See Below Exam Limited By: No Limitations General Appearance: Alert, WD/WN, Mild Distress, Other (She is diaphoretic and cool to touch. Temperature is 35.9. Heart rate 160 and on the monitor shows a wide-complex irregular tachycardia suggestive of atrial fibrillation with RVR. Respiratory was 17 with O2 sats 94% on room air BP elevated 121 105. It may not be correct since the pulse pressure is so close together.) Eye Exam: Bilateral Eye: Normal Inspection (No blepharal pallor or scleral icterus.), PERRL Throat/Mouth: Normal Inspection, Normal Lips, Normal Teeth, Normal Oropharynx Head: Atraumatic, Normocephalic Neck: Normal Inspection, Supple, Non-Tender, Full Range of Motion, Lymphadenopathy (L). No: Lymphadenopathy (R), Thyromegaly Respiratory/Chest: No Respiratory Distress, Lungs Clear, Normal Breath Sounds, No Accessory Muscle Use Cardiovascular: Regular Rate, Rhythm, No Edema, No Gallop, No Murmur, No Rub, Tachycardia, Irregularly Irregular (Examination reveals an irregular irregular tachycardia and the monitor is suggestive of atrial fibrillation with RVR) Peripheral Pulses: 1+: Posterior Tibial (L) (Pulses in his feet are difficult to feel due to edema both), Posterior Tibial (R), Dorsalis Pedis (L), Dorsalis Pedis (R), 2+: Carotid (L), Carotid (R) GI/Abdominal: Normal Bowel Sounds ( lower extremities.), Soft, Non-Tender, No Organomegaly, No Mass, Pelvis Stable, Other (He has evidence of a previous laparoscopic cholecystectomy) (Male) Exam: No Hernia Back Exam: Normal Inspection. No: CVA Tenderness (L), CVA Tenderness (R) Extremities: Normal Range of Motion, Non-Tender, Pedal Edema Neurological: Alert, Oriented, CN II-XII Intact, Normal Cognition, Normal Gait #1 Interpretation EKG Date: 07/29/20 Time: 18:23 Rhythm: A-Fib Rate (Beats/Min): 148 [place]: RAD-Right [place] Deviation (156 degrees) P-Wave: Absent QRS: RBBB (Patient has a right bundle branch block pattern and thus a wide- complex tachycardia is evident) ST-T: Other (ST segment depression V2 to V6 lead I and aVL also involved. Sole jones secondary to rapid rate) QT: Prolonged Course - Vital Signs Last Recorded V/S: Last Vital Signs Temp 35.9 C L 07/29/20 18:24 Pulse 108 H 07/29/20 23:23 Resp 17 07/29/20 18:24 BP 126/70 07/29/20 23:23 Pulse Ox 94 L 07/29/20 18:24 - Orders/Labs/Meds Labs: Laboratory Tests 07/29/20 07/29/20 07/29/20 Range/Units 18:31 18:31 18:31 WBC 11.57 H (4.23-9.07) K/mm3 RBC 5.37 (4.63-6.08) M/mm3 Hgb 14.0 (13.7-17.5) gm/dl Hct 44.8 (40.1-51.0) % MCV 83.4 (79.0-92.2) fl MCH 26.1 (25.7-32.2) pg MCHC 31.3 L (32.2-35.5) g/dl RDW Std Deviation 45.7 H (35.1-43.9) fL Plt Count 231 (163-337) K/mm3 MPV 10.2 (9.4-12.3) fl Neut % (Auto) 69.9 H (34.0-67.9) % Lymph % (Auto) 15.8 L (21.8-53.1) % [place] % (Auto) 8.9 (5.3-12.2) % Eos % (Auto) 5.0 (0.8-7.0) Baso % (Auto) 0.2 (0.1-1.2) % Neut # (Auto) 8.09 H (1.78-5.38) K/mm3 Lymph # (Auto) 1.83 (1.32-3.57) K/mm3 [place] # (Auto) 1.03 H (0.30-0.82) K/mm3 Eos # (Auto) 0.58 H (0.04-0.54) K/mm3 Baso # (Auto) 0.02 (0.01-0.08) K/mm3 Manual Slide Review Normal smear PT 10.0 (9.7-12.0) SECONDS INR 0.93 APTT 26.5 (21.7-31.4) SECONDS Sodium 142 (136-145) mEq/L Potassium 3.5 (3.5-5.1) mEq/L Chloride 105 (98-107) mEq/L Carbon Dioxide 24 (21-32) mEq/L Anion Gap 16.5 H (5-15) BUN 12 (7-18) mg/dL Creatinine 1.2 (0.7-1.3) mg/dL Est Cr Clr Drug Dosing 55.76 mL/min Estimated GFR (MDRD) 59 (>60) mL/min BUN/Creatinine Ratio 10.0 L (14-18) Glucose 199 H (83-115) mg/dL Calcium 9.1 (8.5-10.1) mg/dL Magnesium 2.1 (1.8-2.4) mg/dl Total Bilirubin 0.4 (0.2-1.0) mg/dL AST 16 (15-37) U/L ALT 25 (16-63) U/L Alkaline Phosphatase 65 (46-116) U/L CK-MB (CK-2) < 0.5 (0-3.6) ng/ml Troponin I < 0.017 (0.00-0.056) ng/mL C-Reactive Protein 4.0 H* (<1.0) mg/dL NT-Pro-B Natriuret Pep (0-125) pg/mL Total Protein 7.2 (6.4-8.2) g/dl Albumin 3.5 (3.4-5.0) g/dl Globulin 3.7 gm/dL Albumin/Globulin Ratio 1.0 (1-2) Urine Color (Yellow) Urine Appearance (Clear) Urine pH (5.0-8.0) Ur Specific [place] (1.005-1.030) Urine Protein (Negative) Urine Glucose (UA) (Negative) Urine Ketones (Negative) Urine Occult Blood (Negative) Urine Nitrite (Negative) Urine Bilirubin (Negative) Urine Urobilinogen (0.2-1.0) Ur Leukocyte Esterase (Negative) Urine RBC (0-5) /hpf Urine WBC (0-5) /hpf Ur Squamous Epith Cells (0-5) /hpf Urine Bacteria (FEW) /hpf Urine Mucus (FEW) /hpf 07/29/20 07/29/20 Range/Units 18:31 20:30 WBC (4.23-9.07) K/mm3 RBC (4.63-6.08) M/mm3 Hgb (13.7-17.5) gm/dl Hct (40.1-51.0) % MCV (79.0-92.2) fl MCH (25.7-32.2) pg MCHC (32.2-35.5) g/dl RDW Std Deviation (35.1-43.9) fL Plt Count (163-337) K/mm3 MPV (9.4-12.3) fl Neut % (Auto) (34.0-67.9) % Lymph % (Auto) (21.8-53.1) % [place] % (Auto) (5.3-12.2) % Eos % (Auto) (0.8-7.0) Baso % (Auto) (0.1-1.2) % Neut # (Auto) (1.78-5.38) K/mm3 Lymph # (Auto) (1.32-3.57) K/mm3 [place] # (Auto) (0.30-0.82) K/mm3 Eos # (Auto) (0.04-0.54) K/mm3 Baso # (Auto) (0.01-0.08) K/mm3 Manual Slide Review PT (9.7-12.0) SECONDS INR APTT (21.7-31.4) SECONDS Sodium (136-145) mEq/L Potassium (3.5-5.1) mEq/L Chloride (98-107) mEq/L Carbon Dioxide (21-32) mEq/L Anion Gap (5-15) BUN (7-18) mg/dL Creatinine (0.7-1.3) mg/dL Est Cr Clr Drug Dosing mL/min Estimated GFR (MDRD) (>60) mL/min BUN/Creatinine Ratio (14-18) Glucose (83-115) mg/dL Calcium (8.5-10.1) mg/dL Magnesium (1.8-2.4) mg/dl Total Bilirubin (0.2-1.0) mg/dL AST (15-37) U/L ALT (16-63) U/L Alkaline Phosphatase (46-116) U/L CK-MB (CK-2) (0-3.6) ng/ml Troponin I (0.00-0.056) ng/mL C-Reactive Protein (<1.0) mg/dL NT-Pro-B Natriuret Pep 293 H (0-125) pg/mL Total Protein (6.4-8.2) g/dl Albumin (3.4-5.0) g/dl Globulin gm/dL Albumin/Globulin Ratio (1-2) Urine Color Yellow (Yellow) Urine Appearance Clear (Clear) Urine pH 5.5 (5.0-8.0) Ur Specific [place] 1.025 (1.005-1.030) Urine Protein Negative (Negative) Urine Glucose (UA) Negative (Negative) Urine Ketones Negative (Negative) Urine Occult Blood Negative (Negative) Urine Nitrite Negative (Negative) Urine Bilirubin Negative (Negative) Urine Urobilinogen 0.2 (0.2-1.0) Ur Leukocyte Esterase 1+ H (Negative) Urine RBC 0-5 (0-5) /hpf Urine WBC 10-20 H (0-5) /hpf Ur Squamous Epith Cells 0-5 (0-5) /hpf Urine Bacteria Moderate H (FEW) /hpf Urine Mucus Not seen (FEW) /hpf Meds: Medications Discontinued Medications Generic Name Dose Route Start Last Admin Trade Name Laith PRN Reason Stop Dose Admin Diltiazem HCl 10 mg 07/29/20 18:35 07/29/20 18:40 Cardizem IVPUSH 07/29/20 18:36 10 mg ONETIME ONE Administration Diltiazem HCl 10 mg 07/29/20 19:01 07/29/20 19:22 Cardizem IVPUSH 07/29/20 19:02 10 mg ONETIME ONE Administration Diltiazem HCl 120 mg 07/29/20 22:59 07/29/20 23:23 Cardizem Cd PO 07/29/20 23:00 120 mg ONETIME ONE Administration Sodium Chloride 1,000 mls @ 100 mls/hr 07/29/20 18:45 07/29/20 18:44 Normal Saline IV 100 mls/hr ASDIRECTED ADRIANA Administration Diltiazem HCl 100 mg/ Sodium 100 mls @ 10 mls/hr 07/29/20 18:45 07/29/20 22:31 Chloride IV 0 mg/hr ASDIRECTED ADRIANA 0 mls/hr Infusion 10 MG/HR Diltiazem HCl 100 mg/ Sodium 100 mls @ 15 mls/hr 07/29/20 19:15 Chloride IV ASDIRECTED ADRIANA 15 MG/HR - Radiology Interpretation Free Text/Narrative:: 75-year-old male presents to the ED with acute onset of rapid irregular heartbeat associate with left precordial chest discomfort, diaphoresis and weakness in his lower extremities. Perhaps very mild shortness of breath. Patient has a history of intermittent paroxysmal atrial fibrillation with rapid ventricular rate since having triple bypass surgery carried out in [place] [address] Farrar in [place]. He felt good all day and actually did finish his supper before the tachycardia started. Monitor reveals a wide-complex ta chycardia at 160/min ECG confirms a right bundle branch block pattern. I have seen this patient in the past and he did respond well to cardia zyme bolus and drip for rate control. Plan routine labs will be collected and an ECG and chest x-ray. He will be given Cardizem 10 mg IV bolus and then 10 mg/h drip. - Re-Assessments/Exams Free Text/Narrative Re-Assessment/Exam: 07/29/20 19:03 portable chest x-ray reveals moderate cardiomegaly. Prominent vasculature evidence perihilar areas bilaterally. No pleural effusions. Slightly tortuous thoracic aorta. Heart rate has not responded to initial bolus of Cardizem with rates still staying in the 120s and occasionally still up to 150. BP is 118/67. Will repeat Dilaudid 10 mg IV and increase his drip to 15 mg/h. 07/29/20 19:52 White count is 11.57 differential shows 70% neutrophils. Hemoglobin is 14.0 with hematocrit of 44.8. MCV is 83.4. Platelet count is 231,000. PT is 10.0 with an INR of 0.93 PTT is 26.5. Sodium 142 with potassium low normal at 3.5. Chloride is 105 with a bicarb of 24. Anion gap is 16.5. BUN is 12 with a creatinine of 1.2 and a GFR 59. Glucose is elevated at 199. Calcium is 9.1 magnesium is 2.1. Liver function normal CK-MB fraction is less than 0.5 troponin I is less than 0.017. C-reactive protein is 4.0 BNP is 293. Total protein 7.2 with an albumin fraction of 3.5 07/29/20 19:53 Patient tells me now that he accidentally took one of his hydromorphone tablets at home when he was looking for his nitroglycerin pills. He did in fact take 3 nitroglycerin pills 0.4 mg 5 minutes apart because the chest pain was so severe. He has no chest pain at present. Heart rate has come down close to 100. At his dipped below 100 a couple of times. At present it is 114/min with BP 119/75. Care will be transferred to Dr. Giron as it is change of shift. I suspect the patient is going to need an oral dose of Cardizem which he reports he has been on before for rate control. 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 Is faithful about taking his Eliquis 5 mg twice daily. Sepsis Event Note (ED) - Evaluation Sepsis Screening Result: No Definite Risk
[2020-07-29] MEDS ORDERED: Sodium Chloride 0.9% 1,000 ML IV SCH (18:45)
[2020-07-29] MEDS ORDERED: Diltiazem 100 MG in Sodium Chloride 0.9% 100 ML IV SCH ×2 (18:45→19:15)
[2020-07-29] MEDS ORDERED: Diltiazem 120 MG Cap.CD PO ONE (22:59)
--- NOTE | 2020-07-30 09:00 | CR ---
Chest: Portable view of the chest was obtained. Comparison: Prior chest x-rays in 06/10/20 and 10/29/19. Heart size is normal for portable technique. Tortuous thoracic aorta is seen. Previous sternotomy is noted. Slight linear density is noted within the right lung base which appears chronic. No acute parenchymal change is seen. Previous left shoulder surgery is noted. Impression: 1. Stable findings as noted above. 2. Nothing acute is appreciated. Diagnostic code #2
== END 2020-07-29 23:24 | disposition home or self-care (01) ==
LOC: JD.ED 18:18
DX: I48.0 Paroxysmal atrial fibrillation (principal); I11.0 Hypertensive heart disease with heart failure; I50.9 Heart failure, unspecified; E78.00 Pure hypercholesterolemia, unspecified; I25.2 Old myocardial infarction; J44.9 Chronic obstructive pulmonary disease, unspecified; M10.9 Gout, unspecified; I45.10 Unspecified right bundle-branch block; E66.9 Obesity, unspecified; Z68.39 Body mass index [BMI] 39.0-39.9, adult; Z95.1 Presence of aortocoronary bypass graft; Z88.8 Allergy status to other drugs, medicaments and biological substances; Z88.5 Allergy status to narcotic agent; Z79.82 Long term (current) use of aspirin; Z79.01 Long term (current) use of anticoagulants; Z79.899 Other long term (current) drug therapy
CPT/HCPCS: 36415; 71045; 80053; 81001; 82553; 83735; 83880; 84484; 85025; 85610; 85730; 86140; 93005; 96365; 96366; 99285; A9270; J3490; J7030; 93010

== ENCOUNTER 2020-12-06 17:01 | Inpatient (IN) | payer MEDICARE ==
[2020-12-06] MEDS ORDERED: Sodium Chloride 0.9% 10 ML Syringe FLUSH PRN (18:00)
--- NOTE | 2020-12-06 18:01 | EDM.PDOC ---
ED HPI GENERAL MEDICAL PROBLEM - General Chief Complaint: Respiratory Problem Stated Complaint: LOW O2 Time Seen by Provider: 12/06/20 17:50 Source of Information: Reports: Patient, RN Notes Reviewed - History of Present Illness INITIAL COMMENTS - FREE TEXT/NARRATIVE: 75 yr old male has been ill for about 6 days. Has had fever, chills, achiness, low energy, dsypnea. He has had 2 children ill with recent covid. His is reported to have just tested positive. He has had occasional cough. He gets very short of breath with minimal exertion. Hx of Htn, CHF, obesity. No smoking hx. Treatments [employer]: Reports: Other Medication(s) - Related Data Allergies Allergy/AdvReac Type Severity Reaction Status Date / Time atorvastatin [From Lipitor] Allergy Muscle Verified 12/06/20 17:46 Aches oxycodone Allergy Cannot Verified 12/06/20 17:46 Remember Home Meds: Home Meds Aspirin [Garber Aspirin] 81 mg PO DAILY 07/24/18 [History] Cholecalciferol (Vitamin D3) [Vitamin D3] 5,000 unit PO DAILY 07/24/18 [History] HYDROmorphone [Dilaudid] 4 mg PO Q6H PRN 07/24/18 [History] Metoprolol Succinate [Toprol XL 50mg] 50 mg PO DAILY 07/24/18 [History] Multivitamin [Multivitamins] 1 each PO DAILY 07/24/18 [History] Nitroglycerin [Nitrostat] 0.4 mg SL ASDIRECTED PRN 07/24/18 [History] Rosuvastatin [Crestor] 5 mg PO DAILY 07/24/18 [History] Sertraline [Zoloft] 50 mg PO DAILY 10/08/18 [History] Apixaban [Eliquis] 5 mg PO BID 10/29/19 [History] Potassium Chloride [Klor-Con M10] 10 meq PO DAILY 10/29/19 [History] Torsemide [Demadex] 40 mg PO DAILY 10/29/19 [History] amLODIPine [Norvasc] 2.5 mg PO DAILY 07/29/20 [History] dilTIAZem HCL [Diltiazem 24Hr ER] 1 cap PO QAM #14 cap.er.24h 07/29/20 [Rx] Past Medical History HEENT History: Reports: Hard of Hearing, Impaired Vision Other HEENT History: uses hearing aid Cardiovascular History: Reports: Afib (Paroxysmal atrial fibrillation with rapid ventricular rate), Arrhythmia, Bypass ([place] Heart Failure, High Cholesterol, Hypertension, [place], SOB on Exertion Respiratory History: Reports: COPD Genitourinary History: Reports: BPH Musculoskeletal History: Reports: Back Pain, Chronic, Gout, Osteoarthritis Psychiatric History: Reports: Anxiety, Depression Endocrine/Metabolic History: Reports: Obesity/BMI 30+ - Past Surgical History Cardiovascular Surgical History: Reports: Coronary Artery Bypass, Other (See Below) Other Cardiovascular Surgeries/Procedures: venous implant/ filter GI Surgical History: Reports: Cholecystectomy, Colonoscopy, EGD Musculoskeletal Surgical History: Reports: Arthroscopic Knee, Knee Replacement Social & Family History - Caffeine Use Caffeine Use: Reports: Coffee - Living Situation & Occupation Living situation: Reports: Occupation: Retired ED ROS GENERAL - Review of Systems Review Of Systems: See Below Constitutional: Reports: Fever, Chills HEENT: Denies: Sinus Problem, Throat Pain Respiratory: Reports: Shortness of Breath, Cough Cardiovascular: Denies: Chest Pain Endocrine: Reports: Fatigue GI/Abdominal: Denies: Abdominal Pain, Nausea, Vomiting Musculoskeletal: Reports: Other (generalized achiness) Skin: Denies: Rash Neurological: Reports: Dizziness, Weakness (generalized). Denies: Headache ED EXAM, GENERAL - Physical Exam Exam: See Below General Appearance: Alert, Mild Distress Head: Atraumatic Neck: Supple, Other (no JVD) Respiratory/Chest: Respiratory Distress (mild tachypnea). No: Rhonchi, Wheezing Cardiovascular: Regular Rate, Rhythm GI/Abdominal: Soft, Non-Tender Extremities: Pedal Edema (moderate bilat). No: Leg Pain, Increased Warmth, Redness Neurological: Alert, Oriented, No Motor/Sensory Deficits Skin Exam: Warm, Dry, Normal Color #1 Interpretation EKG Date: 12/06/20 Rhythm: Other (NSR with 1 PVC) [place]: Normal P-Wave: Present QRS: Other (q waves V2 and V#) ST-T: Normal Course - Vital Signs Last Recorded V/S: Last Vital Signs Temp 97.5 F 12/06/20 17:52 Pulse 93 12/06/20 17:52 Resp 24 H 12/06/20 17:52 BP 170/85 H 12/06/20 17:52 Pulse Ox 88 L 12/06/20 18:10 - Orders/Labs/Meds Orders: Active Orders 24 hr Category Date Time Status Admission Status [Patient Status] [ADT] Routine ADT 12/06/20 19:33 Active EKG 12 Lead [EKG Documentation Completion] [RC] STAT Care 12/06/20 17:59 Active Peripheral IV Care [RC] . DIRECTED Care 12/06/20 18:00 Active Chest 1V Frontal [CR] Stat Exams 12/06/20 17:58 Taken Sodium Chloride 0.9% [Saline Flush] Med 12/06/20 18:00 Active 10 ml FLUSH ASDIRECTED PRN Peripheral IV Insertion Adult [OM.PC] Stat Oth 12/06/20 18:00 Ordered Medication Orders Sodium Chloride (Sodium Chloride 0.9% 10 Ml Syringe) 10 ml FLUSH ASDIRECTED PRN PRN Reason: Keep Vein Open Last Admin: 12/06/20 18:28 Dose: 10 ml Documented by: CARA Labs: Laboratory Tests 12/06/20 12/06/20 12/06/20 Range/Units 18:08 18:15 18:45 WBC (4.23-9.07) K/mm3 RBC (4.63-6.08) M/mm3 Hgb (13.7-17.5) gm/dl Hct (40.1-51.0) % MCV (79.0-92.2) fl MCH (25.7-32.2) pg MCHC (32.2-35.5) g/dl RDW Std Deviation (35.1-43.9) fL Plt Count (163-337) K/mm3 MPV (9.4-12.3) fl Neut % (Auto) (34.0-67.9) % Lymph % (Auto) (21.8-53.1) % [place] % (Auto) (5.3-12.2) % Eos % (Auto) (0.8-7.0) Baso % (Auto) (0.1-1.2) % Neut # (Auto) (1.78-5.38) K/mm3 Lymph # (Auto) (1.32-3.57) K/mm3 [place] # (Auto) (0.30-0.82) K/mm3 Eos # (Auto) (0.04-0.54) K/mm3 Baso # (Auto) (0.01-0.08) K/mm3 D-Dimer, Quantitative (0.19-0.50) mg/L Puncture Site Lt radial ABG pH 7.48 H (7.35-7.45) ABG pCO2 31.0 L (35.0-45.0) mmHg ABG pO2 47.0 L (80.0-100.0) mmHg ABG HCO3 22.6 (22.0-26.0) meq/L ABG O2 Saturation 84.9 L (96.0-97.0) % ABG Base Excess 0.3 (-2-2.0) Dmitri Test Positive O2 Delivery Device Room air Oxygen Flow Rate 0.0 Sodium (136-145) mEq/L Potassium (3.5-5.1) mEq/L Chloride (98-107) mEq/L Carbon Dioxide (21-32) mEq/L Anion Gap (5-15) BUN (7-18) mg/dL Creatinine (0.7-1.3) mg/dL Est Cr Clr Drug Dosing mL/min Estimated GFR (MDRD) (>60) mL/min BUN/Creatinine Ratio (14-18) Glucose (70-99) mg/dL Calcium (8.5-10.1) mg/dL Ferritin (26-388) ng/ml Total Bilirubin (0.2-1.0) mg/dL AST (15-37) U/L ALT (16-63) U/L Alkaline Phosphatase (46-116) U/L Lactate Dehydrogenase (85-227) U/L C-Reactive Protein 14.0 H* (<1.0) mg/dL NT-Pro-B Natriuret Pep (0-125) pg/mL Total Protein (6.4-8.2) g/dl Albumin (3.4-5.0) g/dl Globulin gm/dL Albumin/Globulin Ratio (1-2) SARS-CoV-2 RNA (JAKE) Positive H (NEGATIVE) 12/06/20 12/06/20 12/06/20 Range/Units 18:45 18:45 18:45 WBC 6.99 (4.23-9.07) K/mm3 RBC 5.14 (4.63-6.08) M/mm3 Hgb 13.8 (13.7-17.5) gm/dl Hct 42.7 (40.1-51.0) % MCV 83.1 (79.0-92.2) fl MCH 26.8 (25.7-32.2) pg MCHC 32.3 (32.2-35.5) g/dl RDW Std Deviation 48.9 H (35.1-43.9) fL Plt Count 175 (163-337) K/mm3 MPV 10.8 (9.4-12.3) fl Neut % (Auto) 81.1 H (34.0-67.9) % Lymph % (Auto) 10.2 L (21.8-53.1) % [place] % (Auto) 8.7 (5.3-12.2) % Eos % (Auto) 0 L (0.8-7.0) Baso % (Auto) 0.0 L (0.1-1.2) % Neut # (Auto) 5.67 H (1.78-5.38) K/mm3 Lymph # (Auto) 0.71 L (1.32-3.57) K/mm3 [place] # (Auto) 0.61 (0.30-0.82) K/mm3 Eos # (Auto) 0.00 L (0.04-0.54) K/mm3 Baso # (Auto) 0.00 L (0.01-0.08) K/mm3 D-Dimer, Quantitative 0.79 H (0.19-0.50) mg/L Puncture Site ABG pH (7.35-7.45) ABG pCO2 (35.0-45.0) mmHg ABG pO2 (80.0-100.0) mmHg ABG HCO3 (22.0-26.0) meq/L ABG O2 Saturation (96.0-97.0) % ABG Base Excess (-2-2.0) Dmitri Test O2 Delivery Device Oxygen Flow Rate Sodium 137 (136-145) mEq/L Potassium 3.0 L (3.5-5.1) mEq/L Chloride 100 (98-107) mEq/L Carbon Dioxide 24 (21-32) mEq/L Anion Gap 16.0 H (5-15) BUN 12 (7-18) mg/dL Creatinine 1.3 (0.7-1.3) mg/dL Est Cr Clr Drug Dosing 51.47 mL/min Estimated GFR (MDRD) 54 (>60) mL/min BUN/Creatinine Ratio 9.2 L (14-18) Glucose 148 H (70-99) mg/dL Calcium 8.2 L (8.5-10.1) mg/dL Ferritin (26-388) ng/ml Total Bilirubin 0.4 (0.2-1.0) mg/dL AST 41 H (15-37) U/L ALT 27 (16-63) U/L Alkaline Phosphatase 64 (46-116) U/L Lactate Dehydrogenase 264 H (85-227) U/L C-Reactive Protein (<1.0) mg/dL NT-Pro-B Natriuret Pep (0-125) pg/mL Total Protein 7.2 (6.4-8.2) g/dl Albumin 3.2 L (3.4-5.0) g/dl Globulin 4.0 gm/dL Albumin/Globulin Ratio 0.8 L (1-2) SARS-CoV-2 RNA (JAKE) (NEGATIVE) 12/06/20 12/06/20 Range/Units 18:45 18:45 WBC (4.23-9.07) K/mm3 RBC (4.63-6.08) M/mm3 Hgb (13.7-17.5) gm/dl Hct (40.1-51.0) % MCV (79.0-92.2) fl MCH (25.7-32.2) pg MCHC (32.2-35.5) g/dl RDW Std Deviation (35.1-43.9) fL Plt Count (163-337) K/mm3 MPV (9.4-12.3) fl Neut % (Auto) (34.0-67.9) % Lymph % (Auto) (21.8-53.1) % [place] % (Auto) (5.3-12.2) % Eos % (Auto) (0.8-7.0) Baso % (Auto) (0.1-1.2) % Neut # (Auto) (1.78-5.38) K/mm3 Lymph # (Auto) (1.32-3.57) K/mm3 [place] # (Auto) (0.30-0.82) K/mm3 Eos # (Auto) (0.04-0.54) K/mm3 Baso # (Auto) (0.01-0.08) K/mm3 D-Dimer, Quantitative (0.19-0.50) mg/L Puncture Site ABG pH (7.35-7.45) ABG pCO2 (35.0-45.0) mmHg ABG pO2 (80.0-100.0) mmHg ABG HCO3 (22.0-26.0) meq/L ABG O2 Saturation (96.0-97.0) % ABG Base Excess (-2-2.0) Dmitri Test O2 Delivery Device Oxygen Flow Rate Sodium (136-145) mEq/L Potassium (3.5-5.1) mEq/L Chloride (98-107) mEq/L Carbon Dioxide (21-32) mEq/L Anion Gap (5-15) BUN (7-18) mg/dL Creatinine (0.7-1.3) mg/dL Est Cr Clr Drug Dosing mL/min Estimated GFR (MDRD) (>60) mL/min BUN/Creatinine Ratio (14-18) Glucose (70-99) mg/dL Calcium (8.5-10.1) mg/dL Ferritin 214 (26-388) ng/ml Total Bilirubin (0.2-1.0) mg/dL AST (15-37) U/L ALT (16-63) U/L Alkaline Phosphatase (46-116) U/L Lactate Dehydrogenase (85-227) U/L C-Reactive Protein (<1.0) mg/dL NT-Pro-B Natriuret Pep 413 H (0-125) pg/mL Total Protein (6.4-8.2) g/dl Albumin (3.4-5.0) g/dl Globulin gm/dL Albumin/Globulin Ratio (1-2) SARS-CoV-2 RNA (JAKE) (NEGATIVE) Meds: Medications Generic Name Dose Route Start Last Admin Trade Name Freq PRN Reason Stop Dose Admin Sodium Chloride 10 ml 12/06/20 18:00 12/06/20 18:28 Sodium Chloride 0.9% 10 Ml Syringe FLUSH 10 ml ASDIRECTED PRN Administration Keep Vein Open - Re-Assessments/Exams Free Text/Narrative Re-Assessment/Exam: 12/06/20 20:00 ABG's room air: PO2 47, C02 31. Ph 7.48. CXR shows probable lower lobe L and R minimal infiltrates. Covic screen is positive. 12/06/20 20:02. WBC 7,000. CRP 14. K+ 3.0. due to his hypoxia he will need to be admitted. He is higher risk due top age, obesity, Hx Htn and CHF. Departure - Departure Time of Disposition: 19:36 Disposition: Admitted As Inpatient 67 Condition: Serious Clinical Impression: Pneumonia due to COVID-19 virus, Hypoxia Congestive heart failure Qualifiers: Heart failure type: unspecified Heart failure chronicity: chronic Qualified Code(s): I50.9 - Heart failure, unspecified Obesity Qualifiers: Obesity type: unspecified obesity type Obesity classification: adult class 3 (BMI >= 40) Serious obesity comorbidity presence: without serious comorbidity - Discharge Information Sepsis Event Note (ED) - Evaluation Sepsis Screening Result: No Definite Risk - Focused Exam Vital Signs: Vital Signs Temp Pulse Resp BP Pulse Ox Pulse Ox 12/06/20 18:10 88 L 12/06/20 17:52 97.5 F 93 24 H 170/85 H 89 L 12/06/20 17:15 83 L ED Communication - Discussed Case With (1) Discussed Case With (1): Admitting Provider (Dr Delgadillo, decision to admit at about 19:00.) - My Orders Last 24 Hours: My Active Orders 12/06/20 17:58 Chest 1V Frontal [CR] Stat 12/06/20 17:59 EKG 12 Lead [EKG Documentation Completion] [RC] STAT 12/06/20 18:00 Peripheral IV Care [RC] . DIRECTED Sodium Chloride 0.9% [Saline Flush] 10 ml FLUSH ASDIRECTED PRN Peripheral IV Insertion Adult [OM.PC] Stat 12/06/20 19:33 Admission Status [Patient Status] [ADT] Routine - Assessment/Plan Last 24 Hours: My Active Orders 12/06/20 17:58 Chest 1V Frontal [CR] Stat 12/06/20 17:59 EKG 12 Lead [EKG Documentation Completion] [RC] STAT 12/06/20 18:00 Peripheral IV Care [RC] . DIRECTED Sodium Chloride 0.9% [Saline Flush] 10 ml FLUSH ASDIRECTED PRN Peripheral IV Insertion Adult [OM.PC] Stat 12/06/20 19:33 Admission Status [Patient Status] [ADT] Routine
[2020-12-06] MEDS ORDERED: REMDESIVIR 200 MG in Sodium Chloride 0.9% 250 ML IV ONE (20:20)
--- NOTE | 2020-12-06 20:34 | CR ---
Chest: Portable view of the chest was obtained. Comparison: Prior chest x-ray of 07/29/20. Heart size is normal. Tortuous thoracic aorta is stable. There is increased density identified within the right and lesser within the left perihilar regions. Findings are suspicious for possible diffuse pneumonia. Prior sternotomy is seen. Impression: 1. Patchy areas of increased density is noted above suspicious for mild diffuse pneumonia. Please correlate if patient has positive Covid-19 test. 2. Other findings as noted above which are incidental. Diagnostic code #3
[2020-12-06] MEDS: Sodium Chloride 0.9% 1,000 ML IV SCH (22:07)
[2020-12-06] MEDS: Dexamethasone 4 MG Tab PO SCH ×2 (22:08→22:17)
[2020-12-07] MEDS: Acetaminophen 325 MG Tab PO PRN ×2 (00:59→16:12)
--- NOTE | 2020-12-07 06:43 | PCM.HP.2 ---
H&P History of Present Illness - General Date of Service: 12/07/20 Admit Problem/Dx: Admission Diagnosis/Problem Admission Diagnosis/Problem Hypoxia Source of Information: Patient, EMS Notes Reviewed, Old Records History Limitations: Reports: No Limitations - History of Present Illness Initial Comments - Free Text/Narative: The patient is a 75-year-old gentleman who had presented to the emergency department complaining of fever chills body aches low energy and dyspnea. P kelly had presented to his clinic and his outpatient physician referred him directly to the emergency department with oxygen saturations reportedly in the low 80s. The patient has been in contact with his children who are COVID-19 positive. The patient says that he has a cough associated with this nonproductive. He also has been complaining of weakness and fatigue. Patient also has been taking high dose of hydromorphone at home due to his osteoarthritis and spinal pain. This has been chronic. The patient is somewhat of a poor historian. Onset of Symptoms: Reports: Gradual Duration of Symptoms: Reports: Day(s): Location: Reports: Generalized Severity: Moderate Improves with: Reports: Rest Worsens with: Reports: Movement Context: Reports: Sick Contact (Children positive for COVID-19.) Associated Symptoms: Reports: Diaphoresis, Nausea/Vomiting - Related Data Allergies/Adverse Reactions: Allergies Allergy/AdvReac Type Severity Reaction Status Date / Time atorvastatin [From Lipitor] Allergy Muscle Verified 12/06/20 17:46 Aches oxycodone Allergy Cannot Verified 12/06/20 17:46 Remember Home Medications: Home Meds Aspirin [[place] Aspirin] 81 mg PO DAILY 07/24/18 [History] Cholecalciferol (Vitamin D3) [Vitamin D3] 5,000 unit PO DAILY 07/24/18 [History] HYDROmorphone [Dilaudid] 4 mg PO Q6H PRN 07/24/18 [History] Metoprolol Succinate [Toprol XL 50mg] 50 mg PO DAILY 07/24/18 [History] Multivitamin [Multivitamins] 1 each PO DAILY 07/24/18 [History] Nitroglycerin [Nitrostat] 0.4 mg SL ASDIRECTED PRN 07/24/18 [History] Rosuvastatin [Crestor] 5 mg PO DAILY 07/24/18 [History] Sertraline [Zoloft] 50 mg PO DAILY 10/08/18 [History] Apixaban [Eliquis] 5 mg PO BID 10/29/19 [History] Potassium Chloride [Klor-Con M10] 10 meq PO DAILY 10/29/19 [History] Torsemide [Demadex] 40 mg PO DAILY 10/29/19 [History] amLODIPine [Norvasc] 2.5 mg PO DAILY 07/29/20 [History] dilTIAZem HCL [Diltiazem 24Hr ER] 1 cap PO QAM #14 cap.er.24h 07/29/20 [Rx] Past Medical History HEENT History: Reports: Hard of Hearing, Impaired Vision Other HEENT History: uses hearing aid Cardiovascular History: Reports: Afib, Arrhythmia, Bypass, Heart Failure, High Cholesterol, Hypertension, PR, SOB on Exertion Respiratory History: Reports: COPD Gastrointestinal History: Reports: None Genitourinary History: Reports: BPH Musculoskeletal History: Reports: Back Pain, Chronic, Gout, Osteoarthritis Psychiatric History: Reports: Anxiety, Depression Endocrine/Metabolic History: Reports: Obesity/BMI 30+ Hematologic History: Reports: None Immunologic History: Reports: None Oncologic (Cancer) History: Reports: None - Infectious Disease History Infectious Disease History: Reports: Chicken Pox, Measles, Mumps, Novel Coronavirus - Past Surgical History Head Surgeries/Procedures: Reports: None Cardiovascular Surgical History: Reports: Coronary Artery Bypass, Other (See Below) Other Cardiovascular Surgeries/Procedures: venous implant/ filter Respiratory Surgical History: Reports: None GI Surgical History: Reports: Cholecystectomy, Colonoscopy, EGD Male Surgical History: Reports: None Endocrine Surgical History: Reports: None Musculoskeletal Surgical History: Reports: Arthroscopic Knee, Knee Replacement Social & Family History - Family History Family Medical History: No Pertinent Family History - Tobacco Use Tobacco Use Status *Q: Never Tobacco User Second Hand Smoke Exposure: No - Caffeine Use Caffeine Use: Reports: None - Recreational Drug Use Recreational Drug Use: No - Living Situation & Occupation Living situation: Reports: , with Spouse Occupation: Retired H&P Review of Systems - Review of Systems: Review Of Systems: See Below General: Reports: Chills, Weakness, Fatigue HEENT: Reports: Other (Hard of hearing) Pulmonary: Reports: Shortness of Breath, Cough. Denies: Sputum, Hemoptysis Cardiovascular: Reports: No Symptoms Gastrointestinal: Reports: Nausea Genitourinary: Reports: No Symptoms Musculoskeletal: Reports: Shoulder Pain, Back Pain (Chronic), Leg Pain Skin: Reports: No Symptoms Psychiatric: Reports: No Symptoms Neurological: Reports: No Symptoms Hematologic/Lymphatic: Reports: No Symptoms Immunologic: Reports: No Symptoms Exam - Exam Exam: See Below - Vital Signs Vital Signs: Last Vital Signs Temp 37.0 C 12/07/20 04:31 Pulse 71 12/07/20 04:31 Resp 22 H 12/07/20 04:31 BP 137/77 12/07/20 04:31 Pulse Ox 95 12/07/20 06:21 Weight: 127.233 kg - Exam Quality Assessment: Supplemental Oxygen, DVT Prophylaxis General: Alert, Oriented, Cooperative HEENT: Conjunctiva Clear, EACs Clear, EOMI, Mucosa Moist & [place], PERRLA. No: Hearing Intact (Uses one hearing aid) Neck: Supple, Trachea Midline Lungs: Decreased Breath Sounds, Rales (Widespread) Cardiovascular: Regular Rate, Normal S1, Normal S2, Irregular Rhythm GI/Abdominal Exam: Normal Bowel Sounds, Soft, Non-Tender, No Distention. No: Guarding, Rigid, Rebound (Male) Exam: Deferred Rectal (Males) Exam: Deferred Back Exam: Normal Inspection (Appropriate for age), Full Range of Motion (Ap propriate for age) Extremities: Normal Inspection, No Pedal Edema Skin: Warm, Intact, Moist (Diaphoretic) Neurological: Cranial Nerves Intact. No: Strength Equal Bilateral (Global weakness) Neuro Extensive - Motor, Sensory, Reflexes: CN II-XII Intact Psychiatric: Alert, Normal Affect, Normal Mood - Patient Data Lab Results Last 24 hrs: Laboratory Results - last 24 hr 12/06/20 12/06/20 12/06/20 Range/Units 18:08 18:15 18:45 WBC (4.23-9.07) K/mm3 RBC (4.63-6.08) M/mm3 Hgb (13.7-17.5) gm/dl Hct (40.1-51.0) % MCV (79.0-92.2) fl MCH (25.7-32.2) pg MCHC (32.2-35.5) g/dl RDW Std Deviation (35.1-43.9) fL Plt Count (163-337) K/mm3 MPV (9.4-12.3) fl Neut % (Auto) (34.0-67.9) % Lymph % (Auto) (21.8-53.1) % [place] % (Auto) (5.3-12.2) % Eos % (Auto) (0.8-7.0) Baso % (Auto) (0.1-1.2) % Neut # (Auto) (1.78-5.38) K/mm3 Lymph # (Auto) (1.32-3.57) K/mm3 [place] # (Auto) (0.30-0.82) K/mm3 Eos # (Auto) (0.04-0.54) K/mm3 Baso # (Auto) (0.01-0.08) K/mm3 D-Dimer, Quantitative (0.19-0.50) mg/L Puncture Site Lt radial ABG pH 7.48 H (7.35-7.45) ABG pCO2 31.0 L (35.0-45.0) mmHg ABG pO2 47.0 L (80.0-100.0) mmHg ABG HCO3 22.6 (22.0-26.0) meq/L ABG O2 Saturation 84.9 L (96.0-97.0) % ABG Base Excess 0.3 (-2-2.0) Dmitri Test Positive O2 Delivery Device Room air Oxygen Flow Rate 0.0 Sodium (136-145) mEq/L Potassium (3.5-5.1) mEq/L Chloride (98-107) mEq/L Carbon Dioxide (21-32) mEq/L Anion Gap (5-15) BUN (7-18) mg/dL Creatinine (0.7-1.3) mg/dL Est Cr Clr Drug Dosing mL/min Estimated GFR (MDRD) (>60) mL/min BUN/Creatinine Ratio (14-18) Glucose (70-99) mg/dL Calcium (8.5-10.1) mg/dL Ferritin (26-388) ng/ml Total Bilirubin (0.2-1.0) mg/dL AST (15-37) U/L ALT (16-63) U/L Alkaline Phosphatase (46-116) U/L Lactate Dehydrogenase (85-227) U/L C-Reactive Protein 14.0 H* (<1.0) mg/dL NT-Pro-B Natriuret Pep (0-125) pg/mL Total Protein (6.4-8.2) g/dl Albumin (3.4-5.0) g/dl Globulin gm/dL Albumin/Globulin Ratio (1-2) SARS-CoV-2 RNA (JAKE) Positive H (NEGATIVE) 12/06/20 12/06/20 12/06/20 Range/Units 18:45 18:45 18:45 WBC 6.99 (4.23-9.07) K/mm3 RBC 5.14 (4.63-6.08) M/mm3 Hgb 13.8 (13.7-17.5) gm/dl Hct 42.7 (40.1-51.0) % MCV 83.1 (79.0-92.2) fl MCH 26.8 (25.7-32.2) pg MCHC 32.3 (32.2-35.5) g/dl RDW Std Deviation 48.9 H (35.1-43.9) fL Plt Count 175 (163-337) K/mm3 MPV 10.8 (9.4-12.3) fl Neut % (Auto) 81.1 H (34.0-67.9) % Lymph % (Auto) 10.2 L (21.8-53.1) % [place] % (Auto) 8.7 (5.3-12.2) % Eos % (Auto) 0 L (0.8-7.0) Baso % (Auto) 0.0 L (0.1-1.2) % Neut # (Auto) 5.67 H (1.78-5.38) K/mm3 Lymph # (Auto) 0.71 L (1.32-3.57) K/mm3 [place] # (Auto) 0.61 (0.30-0.82) K/mm3 Eos # (Auto) 0.00 L (0.04-0.54) K/mm3 Baso # (Auto) 0.00 L (0.01-0.08) K/mm3 D-Dimer, Quantitative 0.79 H (0.19-0.50) mg/L Puncture Site ABG pH (7.35-7.45) ABG pCO2 (35.0-45.0) mmHg ABG pO2 (80.0-100.0) mmHg ABG HCO3 (22.0-26.0) meq/L ABG O2 Saturation (96.0-97.0) % ABG Base Excess (-2-2.0) Dmitri Test O2 Delivery Device Oxygen Flow Rate Sodium 137 (136-145) mEq/L Potassium 3.0 L (3.5-5.1) mEq/L Chloride 100 (98-107) mEq/L Carbon Dioxide 24 (21-32) mEq/L Anion Gap 16.0 H (5-15) BUN 12 (7-18) mg/dL Creatinine 1.3 (0.7-1.3) mg/dL Est Cr Clr Drug Dosing 51.47 mL/min Estimated GFR (MDRD) 54 (>60) mL/min BUN/Creatinine Ratio 9.2 L (14-18) Glucose 148 H (70-99) mg/dL Calcium 8.2 L (8.5-10.1) mg/dL Ferritin (26-388) ng/ml Total Bilirubin 0.4 (0.2-1.0) mg/dL AST 41 H (15-37) U/L ALT 27 (16-63) U/L Alkaline Phosphatase 64 (46-116) U/L Lactate Dehydrogenase 264 H (85-227) U/L C-Reactive Protein (<1.0) mg/dL NT-Pro-B Natriuret Pep (0-125) pg/mL Total Protein 7.2 (6.4-8.2) g/dl Albumin 3.2 L (3.4-5.0) g/dl Globulin 4.0 gm/dL Albumin/Globulin Ratio 0.8 L (1-2) SARS-CoV-2 RNA (JAKE) (NEGATIVE) 12/06/20 12/06/20 12/07/20 Range/Units 18:45 18:45 05:55 WBC 4.70 (4.23-9.07) K/mm3 RBC 4.91 (4.63-6.08) M/mm3 Hgb 13.2 L (13.7-17.5) gm/dl Hct 41.0 (40.1-51.0) % MCV 83.5 (79.0-92.2) fl MCH 26.9 (25.7-32.2) pg MCHC 32.2 (32.2-35.5) g/dl RDW Std Deviation 48.6 H (35.1-43.9) fL Plt Count 169 (163-337) K/mm3 MPV 10.7 (9.4-12.3) fl Neut % (Auto) (34.0-67.9) % Lymph % (Auto) (21.8-53.1) % [place] % (Auto) (5.3-12.2) % Eos % (Auto) (0.8-7.0) Baso % (Auto) (0.1-1.2) % Neut # (Auto) (1.78-5.38) K/mm3 Lymph # (Auto) (1.32-3.57) K/mm3 [place] # (Auto) (0.30-0.82) K/mm3 Eos # (Auto) (0.04-0.54) K/mm3 Baso # (Auto) (0.01-0.08) K/mm3 D-Dimer, Quantitative (0.19-0.50) mg/L Puncture Site ABG pH (7.35-7.45) ABG pCO2 (35.0-45.0) mmHg ABG pO2 (80.0-100.0) mmHg ABG HCO3 (22.0-26.0) meq/L ABG O2 Saturation (96.0-97.0) % ABG Base Excess (-2-2.0) Dmitri Test O2 Delivery Device Oxygen Flow Rate Sodium (136-145) mEq/L Potassium (3.5-5.1) mEq/L Chloride (98-107) mEq/L Carbon Dioxide (21-32) mEq/L Anion Gap (5-15) BUN (7-18) mg/dL Creatinine (0.7-1.3) mg/dL Est Cr Clr Drug Dosing mL/min Estimated GFR (MDRD) (>60) mL/min BUN/Creatinine Ratio (14-18) Glucose (70-99) mg/dL Calcium (8.5-10.1) mg/dL Ferritin 214 (26-388) ng/ml Total Bilirubin (0.2-1.0) mg/dL AST (15-37) U/L ALT (16-63) U/L Alkaline Phosphatase (46-116) U/L Lactate Dehydrogenase (85-227) U/L C-Reactive Protein (<1.0) mg/dL NT-Pro-B Natriuret Pep 413 H (0-125) pg/mL Total Protein (6.4-8.2) g/dl Albumin (3.4-5.0) g/dl Globulin gm/dL Albumin/Globulin Ratio (1-2) SARS-CoV-2 RNA (JAKE) (NEGATIVE) Result Diagrams: 12/07/20 05:55 12/07/20 05:55 Sepsis Event Note - Evaluation Sepsis Screening Result: Sepsis Risk Current Stage of Sepsis: Ruled Out Reason for Ruling Out Sepsis: Normal white blood cell count, no fever, COVID-19 positive test (U07.1, COVID-19) with Acute Pneumonia (J12.89, Other viral pneumonia) (If respiratory failure or sepsis present, add as separate assessment) Normotensive, no tachycardia - Focused Exam Vital Signs: Vital Signs Temp Pulse Pulse Resp BP BP Pulse Ox 12/07/20 06:21 12/07/20 04:31 37.0 C 71 22 H 137/77 91 L 12/07/20 01:03 36.8 C 73 22 H 144/95 H 91 L 12/06/20 20:19 80 18 150/89 H 94 L 12/06/20 20:17 36.7 C 95 16 156/92 H 94 L Pulse Ox 12/07/20 06:21 95 12/07/20 04:31 12/07/20 01:03 12/06/20 20:19 12/06/20 20:17 - Problem List (1) Acute respiratory failure due to COVID-19 SNOMED Code(s): 734939748 ICD Code: U07.1 - COVID-19; J96.00 - ACUTE RESPIRATORY FAILURE, UNSP W HYPOXIA OR HYPERCAPNIA Status: Acute Priority: High Current Visit: Yes (2) Pneumonia due to COVID-19 virus SNOMED Code(s): 076621262260263505 ICD Code: U07.1 - COVID-19; J12.82 - PNEUMONIA DUE TO CORONAVIRUS DISEASE 2019 Status: Acute Priority: High Current Visit: Yes (3) Atrial fibrillation, chronic SNOMED Code(s): 622343357 ICD Code: I48.20 - CHRONIC ATRIAL FIBRILLATION, UNSPECIFIED Status: Chronic Priority: Medium Current Visit: Yes (4) Chronic anticoagulation SNOMED Code(s): 780651944 ICD Code: Z79.01 - CORRECTION (CURRENT) USE OF ANTICOAGULANTS Status: Chronic Priority: Medium Current Visit: Yes (5) Hypokalemia SNOMED Code(s): 43126323 ICD Code: E87.6 - HYPOKALEMIA Status: Acute Priority: High Current Visit: Yes Problem List Initiated/Reviewed/Updated: Yes Orders Last 24hrs: Active Orders 24 hr Category Date Time Status Admission Status [Patient Status] [ADT] Routine ADT 12/06/20 19:33 Active Patient Status [ADT] Routine ADT 12/06/20 20:21 Active Oxygen Therapy Adult [Oxygen Therapy] [RC] ASDIRECTED Care 12/06/20 20:15 Active Up With Assistance [RC] BID Care 12/06/20 22:33 Active Heart Healthy Diet [DIET] Diet 12/07/20 Breakfast Active COMPREHENSIVE METABOLIC PN,CMP [CHEM] Routine Lab 12/07/20 05:55 Received CRP [C-REACTIVE PROTEIN] [CHEM] Routine Lab 12/07/20 05:55 Received MAGNESIUM [CHEM] Routine Lab 12/07/20 05:55 Received Acetaminophen [TylenoL] Med 12/06/20 23:37 Active 650 mg PO Q4H PRN Sodium Chloride 0.9% [Normal Saline] 1,000 ml Med 12/06/20 20:15 Active IV ASDIRECTED Sodium Chloride 0.9% [Saline Flush] Med 12/06/20 18:00 Active 10 ml FLUSH ASDIRECTED PRN dexAMETHasone Med 12/06/20 20:30 Active 6 mg PO DAILY Isolation [COMM] Routine Oth 12/06/20 20:14 Ordered Peripheral IV Insertion Adult [OM.PC] Stat Oth 12/06/20 18:00 Ordered Pulse Oximetry Continuous Monitoring [OM.PC] Routine Oth 12/06/20 21:30 Active Code Status [Resuscitation Status] Routine Resus Stat 12/06/20 20:13 Ordered Medication Orders Acetaminophen (Acetaminophen 325 Mg Tab) 650 mg PO Q4H PRN PRN Reason: Pain (moderate 4-6) Last Admin: 12/07/20 00:59 Dose: 650 mg Documented by: ABE Dexamethasone (Dexamethasone 4 Mg Tab) 6 mg PO DAILY [facility] Last Admin: 12/06/20 22:17 Dose: Not Given Documented by: Admin: 12/06/20 22:08 Dose: 6 mg Documented by: NADINE Sodium Chloride (Normal Saline) 1,000 mls @ 100 mls/hr IV ASDIRECTED ADRIANA Last Admin: 12/06/20 22:07 Dose: 100 mls/hr Documented by: NADINE Sodium Chloride (Sodium Chloride 0.9% 10 Ml Syringe) 10 ml FLUSH ASDIRECTED PRN PRN Reason: Keep Vein Open Last Admin: 12/06/20 18:28 Dose: 10 ml Documented by: CARA Assessment/Plan Comment:: The patient is a 75-year-old gentleman who has been admitted as an inpatient due to acute respiratory failure from COVID-19. He also has pneumonia due to COVID- 19. The patient will be started on remdesivir 200 mg initial dose followed by 100 mg for 4 days. He is also been placed on dexamethasone for the next 10 days. The patient currently has chronic atrial fibrillation and is anticoagulated with Eliquis therefore pharmacological DVT prophylaxis will not be needed. The patient will also be kept on telemetry. Also in concerned that the patient would be a fall risk and does not need SCDs. Patient also has hypokalemia and his electrolytes have been replaced. I have ordered repeat laboratory studies for the morning. PT OT will be ordered due to the patient's chronic pain and weakness. Regular heart healthy diet has been ordered for the patient. He has been encouraged to ambulate as he can. His home medications will be restarted once verified. The patient should be appropriate for discharge in 4 to 5 days depending upon his oxygen requirements and medication completion. Due to the patient's age and weakness intermediate facility may be needed. - Mortality Measure Prognosis:: Good
[2020-12-07] MEDS ORDERED: Ondansetron 4 MG Tab.DIS PO PRN (07:43)
[2020-12-07] MEDS ORDERED: Temazepam 15 MG Cap PO PRN (07:43)
[2020-12-07] MEDS: Potassium Chloride 10 MEQ in Premix Bag 1 BAG IV SCH ×2 (07:54→10:10)
[2020-12-07] MEDS: Dexamethasone 4 MG Tab PO SCH (08:05)
[2020-12-07] MEDS: Sodium Chloride 0.9% 1,000 ML IV SCH ×2 (08:05→17:47)
[2020-12-07] MEDS: Apixaban 5 MG Tab PO SCH ×2 (10:10→21:01)
[2020-12-07] MEDS: Allopurinol 300 MG Tab PO SCH (11:54)
[2020-12-07] MEDS: Torsemide 20 MG Tab PO SCH (11:54)
[2020-12-07] MEDS: HYDROmorphone 2 MG Tab PO SCH ×3 (11:54→22:24)
[2020-12-07] MEDS: Pantoprazole 40 MG Tab.CR PO SCH (11:55)
[2020-12-07] MEDS: Sertraline 50 MG Tab PO SCH (11:55)
[2020-12-07] MEDS: Metoprolol Succinate 50 MG Tab.ER PO SCH (11:55)
[2020-12-07] MEDS: Diltiazem 120 MG Cap.CD PO SCH (11:55)
[2020-12-07] MEDS: REMDESIVIR 100 MG in Sodium Chloride 0.9% 100 ML IV SCH (21:02)
[2020-12-08] MEDS: Benzocaine/Cetylpyridinium/Menthol Lozenge MUCMEM PRN ×3 (03:30→18:25)
[2020-12-08] MEDS: Sodium Chloride 0.9% 1,000 ML IV SCH (03:32)
[2020-12-08] MEDS: Albuterol/Ipratropium 3.0-0.5 MG/3 ML Neb Soln NEB PRN (03:58)
[2020-12-08] MEDS: HYDROmorphone 2 MG Tab PO SCH ×4 (04:00→22:28)
--- NOTE | 2020-12-08 08:01 | PCM.PN ---
- General Info Date of Service: 12/08/20 Subjective Update: The patient endorses SOB and chest pain unfortunately did not get COVID 19 Vaccine IVF stopped this morning intermittent cough - Patient Data Vitals - Most Recent: Last Vital Signs Temp 97.9 F 12/08/20 03:48 Pulse 54 L 12/08/20 03:48 Resp 16 12/08/20 03:48 BP 114/67 12/08/20 03:48 Pulse Ox 91 L 12/08/20 06:30 Weight - Most Recent: 286 lb 9.6 oz I&O - Last 24 Hours: Intake & Output 12/07/20 12/08/20 12/08/20 22:59 06:59 14:59 Intake Total 1766 1710 Output Total 750 800 Balance 1016 910 Lab Results Last 24 Hours: Laboratory Results - last 24 hr 12/08/20 12/08/20 Range/Units 04:43 04:43 WBC 6.59 (4.23-9.07) K/mm3 RBC 4.87 (4.63-6.08) M/mm3 Hgb 13.1 L (13.7-17.5) gm/dl Hct 40.5 (40.1-51.0) % MCV 83.2 (79.0-92.2) fl MCH 26.9 (25.7-32.2) pg MCHC 32.3 (32.2-35.5) g/dl RDW Std Deviation 48.9 H (35.1-43.9) fL Plt Count 189 (163-337) K/mm3 MPV 11.1 (9.4-12.3) fl Neut % (Auto) 74.8 H (34.0-67.9) % Lymph % (Auto) 15.6 L (21.8-53.1) % Overton % (Auto) 9.6 (5.3-12.2) % Eos % (Auto) 0 L (0.8-7.0) Baso % (Auto) 0.0 L (0.1-1.2) % Neut # (Auto) 4.93 (1.78-5.38) K/mm3 Lymph # (Auto) 1.03 L (1.32-3.57) K/mm3 Overton # (Auto) 0.63 (0.30-0.82) K/mm3 Eos # (Auto) 0.00 L (0.04-0.54) K/mm3 Baso # (Auto) 0.00 L (0.01-0.08) K/mm3 Sodium 144 (136-145) mEq/L Potassium 3.2 L (3.5-5.1) mEq/L Chloride 109 H (98-107) mEq/L Carbon Dioxide 23 (21-32) mEq/L Anion Gap 15.2 H (5-15) BUN 19 H (7-18) mg/dL Creatinine 1.2 (0.7-1.3) mg/dL Est Cr Clr Drug Dosing 55.76 mL/min Estimated GFR (MDRD) 59 (>60) mL/min BUN/Creatinine Ratio 15.8 (14-18) Glucose 151 H (70-99) mg/dL Calcium 7.7 L (8.5-10.1) mg/dL Magnesium 1.8 (1.8-2.4) mg/dL Total Bilirubin 0.3 (0.2-1.0) mg/dL AST 35 (15-37) U/L ALT 25 (16-63) U/L Alkaline Phosphatase 52 (46-116) U/L C-Reactive Protein 7.3 H* (<1.0) mg/dL Total Protein 6.0 L (6.4-8.2) g/dl Albumin 2.4 L (3.4-5.0) g/dl Globulin 3.6 gm/dL Albumin/Globulin Ratio 0.7 L (1-2) Med Orders - Current: Current Medications Acetaminophen (Acetaminophen 325 Mg Tab) 650 mg PO Q4H PRN PRN Reason: Pain (moderate 4-6) Last Admin: 12/07/20 16:12 Dose: 650 mg Documented by: Albuterol (Albuterol 6.7 Gm Inhaler) 0 gm INH Q4H PRN PRN Reason: sob/wheezing Albuterol/Ipratropium (Albuterol/Ipratropium 3.0-0.5 Mg/3 Ml Neb Soln) 3 ml NEB Q4H PRN PRN Reason: Shortness Of Breath/wheezing Last Admin: 12/08/20 03:58 Dose: 3 ml Documented by: Allopurinol (Allopurinol 300 Mg Tab) 300 mg PO DAILY [facility] Last Admin: 12/07/20 11:54 Dose: 300 mg Documented by: Apixaban (Apixaban 5 Mg Tab) 5 mg PO BID COUNT INCLUDES THE [facility] Last Admin: 12/07/20 21:01 Dose: 5 mg Documented by: Benzocaine/Menthol (Benzocaine/Cetylpyridinium/Menthol Lozenge) 1 lozenge MUCMEM Q2H PRN PRN Reason: Sore Throat Last Admin: 12/08/20 03:30 Dose: 1 lozenge Documented by: Dexamethasone (Dexamethasone 4 Mg Tab) 6 mg PO DAILY COUNT INCLUDES THE [facility] Last Admin: 12/07/20 08:05 Dose: 6 mg Documented by: Diltiazem HCl (Diltiazem 120 Mg Cap.Cd) 120 mg PO DAILY COUNT INCLUDES THE [facility] Last Admin: 12/07/20 11:55 Dose: 120 mg Documented by: Hydromorphone HCl (Hydromorphone 2 Mg Tab) 4 mg PO Q6H COUNT INCLUDES THE [facility] Last Admin: 12/08/20 04:00 Dose: 4 mg Documented by: Sodium Chloride (Normal Saline) 1,000 mls @ 100 mls/hr IV ASDIRECTED COUNT INCLUDES THE [facility] Last Admin: 12/08/20 03:32 Dose: 100 mls/hr Documented by: Remdesivir 100 mg/ Sodium (Chloride) 100 mls @ 100 mls/hr IV Q24H COUNT INCLUDES THE [facility] Stop: 12/10/20 22:59 Last Admin: 12/07/20 21:02 Dose: 100 mls/hr Documented by: Metoprolol Succinate (Metoprolol Succinate 50 Mg Tab.Er) 50 mg PO DAILY COUNT INCLUDES THE [facility] Last Admin: 12/07/20 11:55 Dose: 50 mg Documented by: Ondansetron HCl (Ondansetron 4 Mg Tab.Dis) 4 mg PO Q4H PRN PRN Reason: nausea, able to take PO Pantoprazole Sodium (Pantoprazole 40 Mg Tab.Cr) 40 mg PO DAILY COUNT INCLUDES THE [facility] Last Admin: 12/07/20 11:55 Dose: 40 mg Documented by: Potassium Chloride (Potassium Chloride 20 Meq Tab.Er) 20 meq PO TID COUNT INCLUDES THE [facility] Sertraline HCl (Sertraline 50 Mg Tab) 50 mg PO DAILY COUNT INCLUDES THE [facility] Last Admin: 12/07/20 11:55 Dose: 50 mg Documented by: Sodium Chloride (Sodium Chloride 0.9% 10 Ml Syringe) 10 ml FLUSH ASDIRECTED PRN PRN Reason: Keep Vein Open Last Admin: 12/06/20 18:28 Dose: 10 ml Documented by: Temazepam (Temazepam 15 Mg Cap) 15 mg PO BEDTIME PRN PRN Reason: Sleep Torsemide (Torsemide 20 Mg Tab) 20 mg PO DAILY [facility] Last Admin: 12/07/20 11:54 Dose: 20 mg Documented by: Discontinued Medications Remdesivir 200 mg/ Sodium (Chloride) 250 mls @ 250 mls/hr IV ONETIME ONE Stop: 12/06/20 20:21 Last Admin: 12/06/20 22:06 Dose: 250 mls/hr Documented by: Potassium Chloride 10 meq/ (Premix) 100 mls @ 100 mls/hr IV Q1H [facility] Stop: 12/07/20 09:44 Last Admin: 12/07/20 10:10 Dose: 100 mls/hr Documented by: - Exam Physical Findings Comments:: Gen: obese male sitting in recliner CV: irregular rate; normal s1 s2 Lungs: Diminished breath sounds Abd: Soft, nt, nd MSK: age appropriate muscle mass Neuro: AOX3; CN grossly intact - Patient Data Lab Results Last 24 hrs: Laboratory Results - last 24 hr 12/08/20 12/08/20 Range/Units 04:43 04:43 WBC 6.59 (4.23-9.07) K/mm3 RBC 4.87 (4.63-6.08) M/mm3 Hgb 13.1 L (13.7-17.5) gm/dl Hct 40.5 (40.1-51.0) % MCV 83.2 (79.0-92.2) fl MCH 26.9 (25.7-32.2) pg MCHC 32.3 (32.2-35.5) g/dl RDW Std Deviation 48.9 H (35.1-43.9) fL Plt Count 189 (163-337) K/mm3 MPV 11.1 (9.4-12.3) fl Neut % (Auto) 74.8 H (34.0-67.9) % Lymph % (Auto) 15.6 L (21.8-53.1) % Overton % (Auto) 9.6 (5.3-12.2) % Eos % (Auto) 0 L (0.8-7.0) Baso % (Auto) 0.0 L (0.1-1.2) % Neut # (Auto) 4.93 (1.78-5.38) K/mm3 Lymph # (Auto) 1.03 L (1.32-3.57) K/mm3 Overton # (Auto) 0.63 (0.30-0.82) K/mm3 Eos # (Auto) 0.00 L (0.04-0.54) K/mm3 Baso # (Auto) 0.00 L (0.01-0.08) K/mm3 Sodium 144 (136-145) mEq/L Potassium 3.2 L (3.5-5.1) mEq/L Chloride 109 H (98-107) mEq/L Carbon Dioxide 23 (21-32) mEq/L Anion Gap 15.2 H (5-15) BUN 19 H (7-18) mg/dL Creatinine 1.2 (0.7-1.3) mg/dL Est Cr Clr Drug Dosing 55.76 mL/min Estimated GFR (MDRD) 59 (>60) mL/min BUN/Creatinine Ratio 15.8 (14-18) Glucose 151 H (70-99) mg/dL Calcium 7.7 L (8.5-10.1) mg/dL Magnesium 1.8 (1.8-2.4) mg/dL Total Bilirubin 0.3 (0.2-1.0) mg/dL AST 35 (15-37) U/L ALT 25 (16-63) U/L Alkaline Phosphatase 52 (46-116) U/L C-Reactive Protein 7.3 H* (<1.0) mg/dL Total Protein 6.0 L (6.4-8.2) g/dl Albumin 2.4 L (3.4-5.0) g/dl Globulin 3.6 gm/dL Albumin/Globulin Ratio 0.7 L (1-2) Result Diagrams: 12/08/20 04:43 12/08/20 04:43 Sepsis Event Note - Evaluation Sepsis Screening Result: No Definite Risk - Focused Exam Vital Signs: Vital Signs Temp Pulse Resp BP Pulse Ox Pulse Ox Pulse Ox 12/08/20 06:30 91 L 12/08/20 05:09 92 L 12/08/20 05:02 89 L 12/08/20 04:03 92 L 12/08/20 03:48 97.9 F 54 L 16 114/67 88 L 12/07/20 23:37 51 L 93 L 12/07/20 20:57 90 L 12/07/20 20:54 97.5 F 55 L 16 121/61 90 L - Problem List Review Problem List Initiated/Reviewed/Updated: Yes - My Orders Last 24 Hours: My Active Orders 12/08/20 03:14 Benzocaine/Cetylpyrd/Menthol [Cepacol Sore Throat] 1 lozenge MUCMEM Q2H PRN 12/08/20 07:56 Add On Test [COMM] Routine 12/08/20 09:00 Potassium Chloride [Klor-Con M20] 20 meq PO TID - Plan Plan:: The patient is a 75-year-old gentleman who has been admitted as an inpatient due to acute respiratory failure from COVID-19. He also has pneumonia due to COVID- 19. The patient will be started on remdesivir 200 mg initial dose followed by 100 mg for 4 days. He is also been placed on dexamethasone for the next 10 days. The patient currently has chronic atrial fibrillation and is anticoagulated with Eliquis therefore pharmacological DVT prophylaxis will not be needed. The patient will also be kept on telemetry. Also in concerned that the patient would be a fall risk and does not need SCDs. Patient also has hypokalemia and his electrolytes have been replaced. I have ordered repeat laboratory studies for the morning. PT OT will be ordered due to the patient's chronic pain and weakness. Regular heart healthy diet has been ordered for the patient. He has been encouraged to ambulate as he can. His home medications will be restarted once verified. The patient should be appropriate for discharge in 4 to 5 days depending upon his oxygen requirements and medication completion. Due to the patient's age and weakness [facility] facility may be needed. 12/08/20 Assessment 75M presenting with Acute hypoxic respiratory failure; has not been vaccinated 1. Acute hypoxic Respiratory failure secondary to COVID 19 PNA 2. Hx of CAD/3v CABG/CHF 3. Chest pain 4. Hx of Atrial Fibrillation on eliquis 5. Hypokalemia 6. hx of Depression Plan for 12/08 -check CT PE study -check trop -prn morphine/ntg -EKG -Echo -continue tele -check mg -electrolyte replacement -RT following -discontinue IVF from admission -continue steroids/remdesivir Code Status-Full code DVT ppx-eliquis Anticipated LOS 4-5 days will need completion of remdesivir therapy
[2020-12-08] MEDS: Dexamethasone 4 MG Tab PO SCH (08:04)
[2020-12-08] MEDS: Allopurinol 300 MG Tab PO SCH (08:05)
[2020-12-08] MEDS: Diltiazem 120 MG Cap.CD PO SCH (08:05)
[2020-12-08] MEDS: Torsemide 20 MG Tab PO SCH (08:08)
[2020-12-08] MEDS: Apixaban 5 MG Tab PO SCH ×2 (08:08→21:13)
[2020-12-08] MEDS: Sertraline 50 MG Tab PO SCH (08:08)
[2020-12-08] MEDS: Metoprolol Succinate 50 MG Tab.ER PO SCH (08:09)
[2020-12-08] MEDS: Potassium Chloride 20 MEQ Tab.ER PO SCH ×3 (08:09→21:13)
[2020-12-08] MEDS: Pantoprazole 40 MG Tab.CR PO SCH (08:09)
[2020-12-08] MEDS: Albuterol 6.7 GM Inhaler INH PRN ×3 (08:23→20:49)
[2020-12-08] MEDS ORDERED: Nitroglycerin 0.4 MG Tab.SL SL PRN (08:46)
[2020-12-08] MEDS ORDERED: Sodium Chloride 0.9% 10 ML Syringe FLUSH PRN (08:52)
[2020-12-08] MEDS ORDERED: Iopamidol 755 Mg/ML 100 ML Bottle IVPUSH ONE (08:52)
[2020-12-08] MEDS ORDERED: Sodium Chloride 0.9% 100 ML IV SCH (09:00)
[2020-12-08] MEDS: Morphine 2 MG/ML SYRINGE IVPUSH PRN (09:15)
--- NOTE | 2020-12-08 10:39 | CT ---
CT chest Technique: Multiple axial sections through the chest were obtained. Intravenous contrast was utilized. Study has been performed as a pulmonary angiogram protocol. Findings: Pulmonary arteries are well-opacified. No filling defects are seen to indicate pulmonary embolism. Visualized upper abdominal structures show prior cholecystectomy. Inferior vena cava filter is noted. Patchy areas of increased density which include groundglass appearance are noted within both sides of the chest compatible with diffuse pneumonia. No pleural effusions are seen. There is a small amount of fat within the pleural space within the lower lungs. This is incidental. Thoracic aorta shows atherosclerotic change. Ascending aorta measures 4.6 cm which is slightly aneurysmal. Descending aorta measures approximately 3.5 cm. There is atherosclerotic change scattered within the coronary arteries. No pericardial thickening is seen. Heart is slightly enlarged. Bone window settings were reviewed which show mild scattered degenerative change within the spine. Previous sternotomy is noted. Impression: 1. No findings of pulmonary embolism. 2. Mild aneurysmal dilatation of the ascending aorta with AP dimension of 4.6 cm. Atherosclerotic change is seen within the coronary arteries. Prior sternotomy is noted. 3. Patchy areas of increased density within both sides of the chest compatible with so-called COVID pneumonia. 4. Other findings believed to be incidental as noted above. Diagnostic code #3
[2020-12-08] MEDS: REMDESIVIR 100 MG in Sodium Chloride 0.9% 100 ML IV SCH (21:13)
[2020-12-09] MEDS: HYDROmorphone 2 MG Tab PO SCH ×4 (04:11→22:48)
[2020-12-09] MEDS: Diltiazem 120 MG Cap.CD PO SCH (08:31)
[2020-12-09] MEDS: Potassium Chloride 20 MEQ Tab.ER PO SCH ×3 (08:34→21:15)
[2020-12-09] MEDS: Dexamethasone 4 MG Tab PO SCH (08:34)
[2020-12-09] MEDS: Allopurinol 300 MG Tab PO SCH (08:35)
[2020-12-09] MEDS: Pantoprazole 40 MG Tab.CR PO SCH (08:35)
[2020-12-09] MEDS: Metoprolol Succinate 50 MG Tab.ER PO SCH (08:35)
[2020-12-09] MEDS: Apixaban 5 MG Tab PO SCH ×2 (08:35→21:15)
[2020-12-09] MEDS: Torsemide 20 MG Tab PO SCH (08:35)
[2020-12-09] MEDS: Sertraline 50 MG Tab PO SCH (08:35)
[2020-12-09] MEDS: Albuterol 6.7 GM Inhaler INH PRN ×2 (08:45→13:57)
[2020-12-09] MEDS: Cholecalciferol (Vitamin D3) 5,000 UNIT Cap PO SCH (09:22)
[2020-12-09] MEDS: Aspirin 81 MG Tab.Chew PO SCH (09:23)
[2020-12-09] MEDS ORDERED: Bisacodyl 10 MG Supp RECTAL PRN (11:04)
[2020-12-09] MEDS: Morphine 2 MG/ML SYRINGE IVPUSH PRN (12:19)
[2020-12-09] MEDS: Benzocaine/Cetylpyridinium/Menthol Lozenge MUCMEM PRN ×2 (12:34→21:16)
--- NOTE | 2020-12-09 13:51 | PCM.PN ---
- General Info Date of Service: 12/09/20 Admission Dx/Problem (Free Text): patient tolerating diet still on high flow oxygen SOB/cough unchanged endorses fatigue starting actemra today increased BG - Patient Data Vitals - Most Recent: Last Vital Signs Temp 97.9 F 12/09/20 11:11 Pulse 56 L 12/09/20 11:11 Resp 20 12/09/20 11:11 BP 151/73 H 12/09/20 11:11 Pulse Ox 92 L 12/09/20 12:03 Weight - Most Recent: 284 lb 1.6 oz I&O - Last 24 Hours: Intake & Output 12/08/20 12/09/20 12/09/20 22:59 06:59 14:59 Intake Total 1130 450 360 Output Total 700 575 500 Balance 430 -125 -140 Lab Results Last 24 Hours: Laboratory Results - last 24 hr 12/09/20 12/09/20 Range/Units 09:03 09:03 WBC 8.75 (4.23-9.07) K/mm3 RBC 5.21 (4.63-6.08) M/mm3 Hgb 13.6 L (13.7-17.5) gm/dl Hct 44.4 (40.1-51.0) % MCV 85.2 (79.0-92.2) fl MCH 26.1 (25.7-32.2) pg MCHC 30.6 L (32.2-35.5) g/dl RDW Std Deviation 51.3 H (35.1-43.9) fL Plt Count 215 (163-337) K/mm3 MPV 10.7 (9.4-12.3) fl Neut % (Auto) 83.0 H (34.0-67.9) % Lymph % (Auto) 10.5 L (21.8-53.1) % Oliver % (Auto) 5.6 (5.3-12.2) % Eos % (Auto) 0 L (0.8-7.0) Baso % (Auto) 0.1 (0.1-1.2) % Neut # (Auto) 7.26 H (1.78-5.38) K/mm3 Lymph # (Auto) 0.92 L (1.32-3.57) K/mm3 Oliver # (Auto) 0.49 (0.30-0.82) K/mm3 Eos # (Auto) 0.00 L (0.04-0.54) K/mm3 Baso # (Auto) 0.01 (0.01-0.08) K/mm3 Sodium 146 H (136-145) mEq/L Potassium 3.8 (3.5-5.1) mEq/L Chloride 110 H (98-107) mEq/L Carbon Dioxide 26 (21-32) mEq/L Anion Gap 13.8 (5-15) BUN 22 H (7-18) mg/dL Creatinine 1.3 (0.7-1.3) mg/dL Est Cr Clr Drug Dosing 51.47 mL/min Estimated GFR (MDRD) 54 (>60) mL/min BUN/Creatinine Ratio 16.9 (14-18) Glucose 219 H (70-99) mg/dL Calcium 8.5 (8.5-10.1) mg/dL Total Bilirubin 0.4 (0.2-1.0) mg/dL Direct Bilirubin 0.20 (0.0-0.2) mg/dl Indirect Bilirubin 0.20 AST 92 H (15-37) U/L ALT 66 H (16-63) U/L Alkaline Phosphatase 59 (46-116) U/L Total Protein 6.5 (6.4-8.2) g/dl Albumin 2.6 L (3.4-5.0) g/dl Globulin 3.9 gm/dL Albumin/Globulin Ratio 0.7 L (1-2) Med Orders - Current: Current Medications Acetaminophen (Acetaminophen 325 Mg Tab) 650 mg PO Q4H PRN PRN Reason: Pain (moderate 4-6) Last Admin: 12/07/20 16:12 Dose: 650 mg Documented by: Albuterol (Albuterol 6.7 Gm Inhaler) 0 gm INH Q4H PRN PRN Reason: sob/wheezing Last Admin: 12/09/20 08:45 Dose: 2 puff Documented by: Albuterol/Ipratropium (Albuterol/Ipratropium 3.0-0.5 Mg/3 Ml Neb Soln) 3 ml NEB Q4H PRN PRN Reason: Shortness Of Breath/wheezing Last Admin: 12/08/20 03:58 Dose: 3 ml Documented by: Allopurinol (Allopurinol 300 Mg Tab) 300 mg PO DAILY [facility] Last Admin: 12/09/20 08:35 Dose: 300 mg Documented by: Apixaban (Apixaban 5 Mg Tab) 5 mg PO BID [facility] Last Admin: 12/09/20 08:35 Dose: 5 mg Documented by: Aspirin (Aspirin 81 Mg Tab.Chew) 81 mg PO DAILY [facility] Last Admin: 12/09/20 09:23 Dose: 81 mg Documented by: Benzocaine/Menthol (Benzocaine/Cetylpyridinium/Menthol Lozenge) 1 lozenge MUCMEM Q2H PRN PRN Reason: Sore Throat Last Admin: 12/09/20 12:34 Dose: 1 lozenge Documented by: Bisacodyl (Bisacodyl 10 Mg Supp) 10 mg RECTAL DAILY PRN PRN Reason: Constipation Last Admin: 12/09/20 12:22 Dose: 10 mg Documented by: Cholecalciferol (Cholecalciferol (Vitamin D3) 5,000 Unit Cap) 5,000 unit PO DAILY [facility] Last Admin: 12/09/20 09:22 Dose: 5,000 unit Documented by: Dexamethasone (Dexamethasone 4 Mg Tab) 6 mg PO DAILY [facility] Last Admin: 12/09/20 08:34 Dose: 6 mg Documented by: Diltiazem HCl (Diltiazem 120 Mg Cap.Cd) 120 mg PO DAILY [facility] Last Admin: 12/09/20 08:31 Dose: 120 mg Documented by: Hydromorphone HCl (Hydromorphone 2 Mg Tab) 4 mg PO Q6H [facility] Last Admin: 12/09/20 11:01 Dose: 4 mg Documented by: Remdesivir 100 mg/ Sodium (Chloride) 100 mls @ 100 mls/hr IV Q24H [facility] Stop: 12/10/20 22:59 Last Admin: 12/08/20 21:13 Dose: 100 mls/hr Documented by: Insulin Human Lispro (Insulin Lispro 100 Unit/Ml 10 Ml Vial) 0 unit SUBCUT QIDACANDBED [facility]; Protocol Metoprolol Succinate (Metoprolol Succinate 50 Mg Tab.Er) 50 mg PO DAILY [facility] Last Admin: 12/09/20 08:35 Dose: 50 mg Documented by: Morphine Sulfate (Morphine 2 Mg/Ml Syringe) 2 mg IVPUSH Q1H PRN PRN Reason: chest pain Last Admin: 12/09/20 12:19 Dose: 2 mg Documented by: Nitroglycerin (Nitroglycerin 0.4 Mg Tab.Sl) 0.4 mg SL Q5M PRN PRN Reason: Chest Pain Ondansetron HCl (Ondansetron 4 Mg Tab.Dis) 4 mg PO Q4H PRN PRN Reason: nausea, able to take PO Last Admin: 12/08/20 09:57 Dose: 4 mg Documented by: Pantoprazole Sodium (Pantoprazole 40 Mg Tab.Cr) 40 mg PO DAILY [facility] Last Admin: 12/09/20 08:35 Dose: 40 mg Documented by: Potassium Chloride (Potassium Chloride 20 Meq Tab.Er) 20 meq PO TID [facility] Last Admin: 12/09/20 08:34 Dose: 20 meq Documented by: Sertraline HCl (Sertraline 50 Mg Tab) 50 mg PO DAILY [facility] Last Admin: 12/09/20 08:35 Dose: 50 mg Documented by: Sodium Chloride (Sodium Chloride 0.9% 10 Ml Syringe) 10 ml FLUSH ASDIRECTED PRN PRN Reason: Keep Vein Open Last Admin: 12/06/20 18:28 Dose: 10 ml Documented by: Temazepam (Temazepam 15 Mg Cap) 15 mg PO BEDTIME PRN PRN Reason: Sleep Torsemide (Torsemide 20 Mg Tab) 20 mg PO DAILY [facility] Last Admin: 12/09/20 08:35 Dose: 20 mg Documented by: Discontinued Medications Sodium Chloride (Normal Saline) 1,000 mls @ 100 mls/hr IV ASDIRECTED [facility] Last Admin: 12/08/20 03:32 Dose: 100 mls/hr Documented by: Remdesivir 200 mg/ Sodium (Chloride) 250 mls @ 250 mls/hr IV ONETIME ONE Stop: 12/06/20 20:21 Last Admin: 12/06/20 22:06 Dose: 250 mls/hr Documented by: Potassium Chloride 10 meq/ (Premix) 100 mls @ 100 mls/hr IV Q1H [facility] Stop: 12/07/20 09:44 Last Admin: 12/07/20 10:10 Dose: 100 mls/hr Documented by: Sodium Chloride (Normal Saline) 100 mls @ 75 mls/hr IV ASDIRECTED [facility] Stop: 12/08/20 12:00 Tocilizumab 800 mg/ Sodium (Chloride) 100 mls @ 100 mls/hr IV ONETIME ONE Stop: 12/09/20 12:01 Last Admin: 12/09/20 12:21 Dose: 100 mls/hr Documented by: Iopamidol (Iopamidol 755 Mg/Ml 100 Ml Bottle) 100 ml IVPUSH ONETIME ONE Stop: 12/08/20 08:53 Last Admin: 12/08/20 10:18 Dose: 100 ml Documented by: Sodium Chloride (Sodium Chloride 0.9% 10 Ml Syringe) 10 ml FLUSH ONETIME PRN PRN Reason: IV FLUSH Stop: 12/08/20 12:00 Last Admin: 12/08/20 10:18 Dose: 10 ml Documented by: - Exam Physical Findings Comments:: Gen: obese male in no distress Neck: supple HEENT: NCAT EOMI MMM CV: IR normal s1 s2 Lungs: Coarse breath sounds Abd: Soft, nt, nd Neuro: nonfocal screening exam - Patient Data Lab Results Last 24 hrs: Laboratory Results - last 24 hr 12/09/20 12/09/20 Range/Units 09:03 09:03 WBC 8.75 (4.23-9.07) K/mm3 RBC 5.21 (4.63-6.08) M/mm3 Hgb 13.6 L (13.7-17.5) gm/dl Hct 44.4 (40.1-51.0) % MCV 85.2 (79.0-92.2) fl MCH 26.1 (25.7-32.2) pg MCHC 30.6 L (32.2-35.5) g/dl RDW Std Deviation 51.3 H (35.1-43.9) fL Plt Count 215 (163-337) K/mm3 MPV 10.7 (9.4-12.3) fl Neut % (Auto) 83.0 H (34.0-67.9) % Lymph % (Auto) 10.5 L (21.8-53.1) % Oliver % (Auto) 5.6 (5.3-12.2) % Eos % (Auto) 0 L (0.8-7.0) Baso % (Auto) 0.1 (0.1-1.2) % Neut # (Auto) 7.26 H (1.78-5.38) K/mm3 Lymph # (Auto) 0.92 L (1.32-3.57) K/mm3 Oliver # (Auto) 0.49 (0.30-0.82) K/mm3 Eos # (Auto) 0.00 L (0.04-0.54) K/mm3 Baso # (Auto) 0.01 (0.01-0.08) K/mm3 Sodium 146 H (136-145) mEq/L Potassium 3.8 (3.5-5.1) mEq/L Chloride 110 H (98-107) mEq/L Carbon Dioxide 26 (21-32) mEq/L Anion Gap 13.8 (5-15) BUN 22 H (7-18) mg/dL Creatinine 1.3 (0.7-1.3) mg/dL Est Cr Clr Drug Dosing 51.47 mL/min Estimated GFR (MDRD) 54 (>60) mL/min BUN/Creatinine Ratio 16.9 (14-18) Glucose 219 H (70-99) mg/dL Calcium 8.5 (8.5-10.1) mg/dL Total Bilirubin 0.4 (0.2-1.0) mg/dL Direct Bilirubin 0.20 (0.0-0.2) mg/dl Indirect Bilirubin 0.20 AST 92 H (15-37) U/L ALT 66 H (16-63) U/L Alkaline Phosphatase 59 (46-116) U/L Total Protein 6.5 (6.4-8.2) g/dl Albumin 2.6 L (3.4-5.0) g/dl Globulin 3.9 gm/dL Albumin/Globulin Ratio 0.7 L (1-2) Result Diagrams: 12/09/20 09:03 12/09/20 09:03 Sepsis Event Note - Evaluation Sepsis Screening Result: No Definite Risk - Focused Exam Vital Signs: Vital Signs Temp Pulse Resp BP Pulse Ox Pulse Ox 12/09/20 12:03 92 L 12/09/20 11:11 97.9 F 56 L 20 151/73 H 92 L 12/09/20 08:39 89 L 12/09/20 08:35 58 L 137/88 12/09/20 08:31 58 L 137/88 12/09/20 07:43 97.5 F 55 L 22 H 137/88 90 L 12/09/20 06:44 90 L 12/09/20 04:23 97.7 F 62 18 140/66 91 L - Problem List Review Problem List Initiated/Reviewed/Updated: Yes - My Orders Last 24 Hours: My Active Orders 12/09/20 09:00 Aspirin 81 mg PO DAILY Cholecalciferol (Vitamin D3) [Vitamin D3] 5,000 unit PO DAILY 12/09/20 09:03 PROCALCITONIN [REF] Routine 12/09/20 11:04 bisacodyL [Dulcolax] 10 mg RECTAL DAILY PRN 12/09/20 13:35 Blood Glucose Check, Bedside [RC] WITHMEALSANDBED 12/09/20 17:00 Insulin Lispro [HumaLOG] See Protocol SUBCUT QIDACANDBED 12/09/20 18:00 Insulin Glarg,Human.Rec.Analog [LantUS] 4 unit SUBCUT DAILY - Plan Plan:: The patient is a 75-year-old gentleman who has been admitted as an inpatient due to acute respiratory failure from COVID-19. He also has pneumonia due to COVID-19. The patient will be started on remdesivir 200 mg initial dose followed by 100 mg for 4 days. He is also been placed on dexamethasone for the next 10 days. The patient currently has chronic atrial fibrillation and is anticoagulated with Eliquis therefore pharmacological DVT prophylaxis will not be needed. The patient will also be kept on telemetry. Also in concerned that the patient would be a fall risk and does not need SCDs. Patient also has hypokalemia and his electrolytes have been replaced. I have ordered repeat laboratory studies for the morning. PT OT will be ordered due to the patient's chronic pain and weakness. Regular heart healthy diet has been ordered for the patient. He has been encouraged to ambulate as he can. His home medications will be restarted once verified. The patient should be appropriate for discharge in 4 to 5 days depending upon his oxygen requirements and medication completion. Due to the patient's age and weakness halfway facility may be needed. Assessment 75M presenting with Acute hypoxic respiratory failure; has not been vaccinated 1. Acute hypoxic Respiratory failure secondary to COVID 19 PNA 2. Hx of CAD/3v CABG/CHF 3. Chest pain 4. Hx of Atrial Fibrillation on eliquis 5. Hypokalemia 6. hx of Depression 7. Steroid induced hyperglycemia -CT PE study negative for PE -prn morphine/ntg -EKG-completed -Echo pending -continue tele -electrolyte replacement -RT following -discontinue IVF from admission -continue steroids/remdesivir -start actemra -start lantus and SSI humalog Code Status-Full code DVT ppx-eliquis Anticipated LOS 4-5 days will need completion of remdesivir therapy
[2020-12-09] MEDS: Insulin Glarg,Human.Rec.Analog 100 Unit/ML SUBCUT SCH (17:25)
[2020-12-09] MEDS: Insulin Lispro 100 UNIT/ML 10 ML Vial SUBCUT SCH ×2 (17:25→21:16)
[2020-12-09] MEDS: Acetaminophen 325 MG Tab PO PRN (21:15)
[2020-12-09] MEDS: Carboxymethylcellulose Sodium 1% Ophth Gel 15 ML Bottle EYEBOTH PRN (21:15)
[2020-12-09] MEDS: REMDESIVIR 100 MG in Sodium Chloride 0.9% 100 ML IV SCH (21:16)
[2020-12-10] MEDS: HYDROmorphone 2 MG Tab PO SCH ×4 (05:24→22:40)
[2020-12-10] MEDS: Albuterol 6.7 GM Inhaler INH PRN ×2 (06:15→13:43)
[2020-12-10] MEDS: Insulin Lispro 100 UNIT/ML 10 ML Vial SUBCUT SCH ×4 (06:48→21:27)
[2020-12-10] MEDS: Dexamethasone 4 MG Tab PO SCH (08:04)
[2020-12-10] MEDS: Apixaban 5 MG Tab PO SCH ×2 (08:04→21:26)
[2020-12-10] MEDS: Pantoprazole 40 MG Tab.CR PO SCH (08:04)
[2020-12-10] MEDS: Allopurinol 300 MG Tab PO SCH (08:04)
[2020-12-10] MEDS: Potassium Chloride 20 MEQ Tab.ER PO SCH ×3 (08:04→21:26)
[2020-12-10] MEDS: Cholecalciferol (Vitamin D3) 5,000 UNIT Cap PO SCH (08:04)
[2020-12-10] MEDS: Torsemide 20 MG Tab PO SCH (08:04)
[2020-12-10] MEDS: Aspirin 81 MG Tab.Chew PO SCH (08:04)
[2020-12-10] MEDS: Diltiazem 120 MG Cap.CD PO SCH (08:05)
[2020-12-10] MEDS: Sertraline 50 MG Tab PO SCH (08:05)
[2020-12-10] MEDS: Carboxymethylcellulose Sodium 1% Ophth Gel 15 ML Bottle EYEBOTH PRN (08:07)
--- NOTE | 2020-12-10 11:20 | PCM.PN ---
- General Info Date of Service: 12/10/20 Admission Dx/Problem (Free Text): patient tolerating diet still on high flow oxygen SOB/cough unchanged endorses fatigue starting actemra today increased BG Subjective Update: Patient SOB slightly improved no nausea or vomiting endorses generalized weakness denies abdominal pain tolerating diet - Patient Data Vitals - Most Recent: Last Vital Signs Temp 97.9 F 12/10/20 07:56 Pulse 49 L 12/10/20 08:05 Resp 20 12/10/20 07:56 BP 154/75 H 12/10/20 07:56 Pulse Ox 96 12/10/20 08:52 Weight - Most Recent: 285 lb 6.4 oz I&O - Last 24 Hours: Intake & Output 12/09/20 12/10/20 12/10/20 22:59 06:59 14:59 Intake Total 1690 500 Output Total 550 600 Balance 1140 -100 Lab Results Last 24 Hours: Laboratory Results - last 24 hr 12/09/20 12/09/20 12/09/20 Range/Units 09:03 15:57 20:58 WBC (4.23-9.07) K/mm3 RBC (4.63-6.08) M/mm3 Hgb (13.7-17.5) gm/dl Hct (40.1-51.0) % MCV (79.0-92.2) fl MCH (25.7-32.2) pg MCHC (32.2-35.5) g/dl RDW Std Deviation (35.1-43.9) fL Plt Count (163-337) K/mm3 MPV (9.4-12.3) fl Neut % (Auto) (34.0-67.9) % Lymph % (Auto) (21.8-53.1) % Monroe % (Auto) (5.3-12.2) % Eos % (Auto) (0.8-7.0) Baso % (Auto) (0.1-1.2) % Neut # (Auto) (1.78-5.38) K/mm3 Lymph # (Auto) (1.32-3.57) K/mm3 Monroe # (Auto) (0.30-0.82) K/mm3 Eos # (Auto) (0.04-0.54) K/mm3 Baso # (Auto) (0.01-0.08) K/mm3 Sodium (136-145) mEq/L Potassium (3.5-5.1) mEq/L Chloride (98-107) mEq/L Carbon Dioxide (21-32) mEq/L Anion Gap (5-15) BUN (7-18) mg/dL Creatinine (0.7-1.3) mg/dL Est Cr Clr Drug Dosing mL/min Estimated GFR (MDRD) (>60) mL/min BUN/Creatinine Ratio (14-18) Glucose (70-99) mg/dL POC Glucose 203 H 155 H (70-99) mg/dL Calcium (8.5-10.1) mg/dL Total Bilirubin (0.2-1.0) mg/dL Direct Bilirubin (0.0-0.2) mg/dl Indirect Bilirubin AST (15-37) U/L ALT (16-63) U/L Alkaline Phosphatase (46-116) U/L Total Protein (6.4-8.2) g/dl Albumin (3.4-5.0) g/dl Globulin gm/dL Albumin/Globulin Ratio (1-2) Procalcitonin 0.09 ng/mL 12/10/20 12/10/20 12/10/20 Range/Units 06:06 06:06 06:25 WBC 5.82 (4.23-9.07) K/mm3 RBC 5.01 (4.63-6.08) M/mm3 Hgb 13.1 L (13.7-17.5) gm/dl Hct 42.9 (40.1-51.0) % MCV 85.6 (79.0-92.2) fl MCH 26.1 (25.7-32.2) pg MCHC 30.5 L (32.2-35.5) g/dl RDW Std Deviation 51.3 H (35.1-43.9) fL Plt Count 203 (163-337) K/mm3 MPV 11.2 (9.4-12.3) fl Neut % (Auto) 75.4 H (34.0-67.9) % Lymph % (Auto) 13.6 L (21.8-53.1) % Monroe % (Auto) 10.7 (5.3-12.2) % Eos % (Auto) 0 L (0.8-7.0) Baso % (Auto) 0.0 L (0.1-1.2) % Neut # (Auto) 4.39 (1.78-5.38) K/mm3 Lymph # (Auto) 0.79 L (1.32-3.57) K/mm3 Monroe # (Auto) 0.62 (0.30-0.82) K/mm3 Eos # (Auto) 0.00 L (0.04-0.54) K/mm3 Baso # (Auto) 0.00 L (0.01-0.08) K/mm3 Sodium 145 (136-145) mEq/L Potassium 4.0 (3.5-5.1) mEq/L Chloride 109 H (98-107) mEq/L Carbon Dioxide 29 (21-32) mEq/L Anion Gap 11.0 (5-15) BUN 23 H (7-18) mg/dL Creatinine 1.0 (0.7-1.3) mg/dL Est Cr Clr Drug Dosing 66.92 mL/min Estimated GFR (MDRD) > 60 (>60) mL/min BUN/Creatinine Ratio 23.0 H (14-18) Glucose 140 H (70-99) mg/dL POC Glucose 141 H (70-99) mg/dL Calcium 8.1 L (8.5-10.1) mg/dL Total Bilirubin 0.5 (0.2-1.0) mg/dL Direct Bilirubin 0.20 (0.0-0.2) mg/dl Indirect Bilirubin 0.30 AST 151 H (15-37) U/L ALT 140 H (16-63) U/L Alkaline Phosphatase 61 (46-116) U/L Total Protein 5.9 L (6.4-8.2) g/dl Albumin 2.4 L (3.4-5.0) g/dl Globulin 3.5 gm/dL Albumin/Globulin Ratio 0.7 L (1-2) Procalcitonin ng/mL 12/10/20 Range/Units 10:30 WBC (4.23-9.07) K/mm3 RBC (4.63-6.08) M/mm3 Hgb (13.7-17.5) gm/dl Hct (40.1-51.0) % MCV (79.0-92.2) fl MCH (25.7-32.2) pg MCHC (32.2-35.5) g/dl RDW Std Deviation (35.1-43.9) fL Plt Count (163-337) K/mm3 MPV (9.4-12.3) fl Neut % (Auto) (34.0-67.9) % Lymph % (Auto) (21.8-53.1) % Monroe % (Auto) (5.3-12.2) % Eos % (Auto) (0.8-7.0) Baso % (Auto) (0.1-1.2) % Neut # (Auto) (1.78-5.38) K/mm3 Lymph # (Auto) (1.32-3.57) K/mm3 Monroe # (Auto) (0.30-0.82) K/mm3 Eos # (Auto) (0.04-0.54) K/mm3 Baso # (Auto) (0.01-0.08) K/mm3 Sodium (136-145) mEq/L Potassium (3.5-5.1) mEq/L Chloride (98-107) mEq/L Carbon Dioxide (21-32) mEq/L Anion Gap (5-15) BUN (7-18) mg/dL Creatinine (0.7-1.3) mg/dL Est Cr Clr Drug Dosing mL/min Estimated GFR (MDRD) (>60) mL/min BUN/Creatinine Ratio (14-18) Glucose (70-99) mg/dL POC Glucose 203 H (70-99) mg/dL Calcium (8.5-10.1) mg/dL Total Bilirubin (0.2-1.0) mg/dL Direct Bilirubin (0.0-0.2) mg/dl Indirect Bilirubin AST (15-37) U/L ALT (16-63) U/L Alkaline Phosphatase (46-116) U/L Total Protein (6.4-8.2) g/dl Albumin (3.4-5.0) g/dl Globulin gm/dL Albumin/Globulin Ratio (1-2) Procalcitonin ng/mL Med Orders - Current: Current Medications Acetaminophen (Acetaminophen 325 Mg Tab) 650 mg PO Q4H PRN PRN Reason: Pain (moderate 4-6) Last Admin: 07/02/21 21:15 Dose: 650 mg Documented by: Albuterol (Albuterol 6.7 Gm Inhaler) 0 gm INH Q4H PRN PRN Reason: sob/wheezing Last Admin: 12/10/20 06:15 Dose: 2 puff Documented by: Albuterol/Ipratropium (Albuterol/Ipratropium 3.0-0.5 Mg/3 Ml Neb Soln) 3 ml NEB Q4H PRN PRN Reason: Shortness Of Breath/wheezing Last Admin: 12/08/20 03:58 Dose: 3 ml Documented by: Allopurinol (Allopurinol 300 Mg Tab) 300 mg PO DAILY [facility] Last Admin: 12/10/20 08:04 Dose: 300 mg Documented by: Apixaban (Apixaban 5 Mg Tab) 5 mg PO BID [facility] Last Admin: 12/10/20 08:04 Dose: 5 mg Documented by: Artificial Tears (Carboxymethylcellulose Sodium 1% Ophth Gel 15 Ml Bottle) 1 ml EYEBOTH TID PRN PRN Reason: Dry Eyes Last Admin: 12/10/20 08:07 Dose: 1 drop Documented by: Aspirin (Aspirin 81 Mg Tab.Chew) 81 mg PO DAILY [facility] Last Admin: 12/10/20 08:04 Dose: 81 mg Documented by: Benzocaine/Menthol (Benzocaine/Cetylpyridinium/Menthol Lozenge) 1 lozenge MUCMEM Q2H PRN PRN Reason: Sore Throat Last Admin: 12/09/20 21:16 Dose: 1 lozenge Documented by: Bisacodyl (Bisacodyl 10 Mg Supp) 10 mg RECTAL DAILY PRN PRN Reason: Constipation Last Admin: 12/09/20 12:22 Dose: 10 mg Documented by: Cholecalciferol (Cholecalciferol (Vitamin D3) 5,000 Unit Cap) 5,000 unit PO DAILY [facility] Last Admin: 12/10/20 08:04 Dose: 5,000 unit Documented by: Dexamethasone (Dexamethasone 4 Mg Tab) 6 mg PO DAILY [facility] Last Admin: 12/10/20 08:04 Dose: 6 mg Documented by: Diltiazem HCl (Diltiazem 120 Mg Cap.Cd) 120 mg PO DAILY [facility] Last Admin: 12/10/20 08:05 Dose: Not Given Documented by: Hydromorphone HCl (Hydromorphone 2 Mg Tab) 4 mg PO Q6H [facility] Last Admin: 12/10/20 10:31 Dose: 4 mg Documented by: Remdesivir 100 mg/ Sodium (Chloride) 100 mls @ 100 mls/hr IV Q24H [facility] Stop: 12/10/20 22:59 Last Admin: 12/09/20 21:16 Dose: 100 mls/hr Documented by: Insulin Glargine (Insulin Glarg,Human.Rec.Analog 100 Unit/Ml) 4 unit SUBCUT 1800 [facility] Last Admin: 12/09/20 17:25 Dose: 4 units Documented by: Insulin Human Lispro (Insulin Lispro 100 Unit/Ml 10 Ml Vial) 0 unit SUBCUT QIDACANDBED [facility]; Protocol Last Admin: 12/10/20 06:48 Dose: Not Given Documented by: Metoprolol Succinate (Metoprolol Succinate 50 Mg Tab.Er) 50 mg PO DAILY [facility] Last Admin: 12/09/20 08:35 Dose: 50 mg Documented by: Morphine Sulfate (Morphine 2 Mg/Ml Syringe) 2 mg IVPUSH Q1H PRN PRN Reason: chest pain Last Admin: 12/09/20 12:19 Dose: 2 mg Documented by: Nitroglycerin (Nitroglycerin 0.4 Mg Tab.Sl) 0.4 mg SL Q5M PRN PRN Reason: Chest Pain Ondansetron HCl (Ondansetron 4 Mg Tab.Dis) 4 mg PO Q4H PRN PRN Reason: nausea, able to take PO Last Admin: 12/08/20 09:57 Dose: 4 mg Documented by: Pantoprazole Sodium (Pantoprazole 40 Mg Tab.Cr) 40 mg PO DAILY [facility] Last Admin: 12/10/20 08:04 Dose: 40 mg Documented by: Potassium Chloride (Potassium Chloride 20 Meq Tab.Er) 20 meq PO TID [facility] Last Admin: 12/10/20 08:04 Dose: 20 meq Documented by: Sertraline HCl (Sertraline 50 Mg Tab) 50 mg PO DAILY [facility] Last Admin: 12/10/20 08:05 Dose: 50 mg Documented by: Sodium Chloride (Sodium Chloride 0.9% 10 Ml Syringe) 10 ml FLUSH ASDIRECTED PRN PRN Reason: Keep Vein Open Last Admin: 12/06/20 18:28 Dose: 10 ml Documented by: Temazepam (Temazepam 15 Mg Cap) 15 mg PO BEDTIME PRN PRN Reason: Sleep Torsemide (Torsemide 20 Mg Tab) 20 mg PO DAILY [facility] Last Admin: 12/10/20 08:04 Dose: 20 mg Documented by: Discontinued Medications Sodium Chloride (Normal Saline) 1,000 mls @ 100 mls/hr IV ASDIRECTED [facility] Last Admin: 12/08/20 03:32 Dose: 100 mls/hr Documented by: Remdesivir 200 mg/ Sodium (Chloride) 250 mls @ 250 mls/hr IV ONETIME ONE Stop: 12/06/20 20:21 Last Admin: 12/06/20 22:06 Dose: 250 mls/hr Documented by: Potassium Chloride 10 meq/ (Premix) 100 mls @ 100 mls/hr IV Q1H [facility] Stop: 12/07/20 09:44 Last Admin: 12/07/20 10:10 Dose: 100 mls/hr Documented by: Sodium Chloride (Normal Saline) 100 mls @ 75 mls/hr IV ASDIRECTED [facility] Stop: 12/08/20 12:00 Tocilizumab 800 mg/ Sodium (Chloride) 100 mls @ 100 mls/hr IV ONETIME ONE Stop: 12/09/20 12:01 Last Admin: 12/09/20 12:21 Dose: 100 mls/hr Documented by: Iopamidol (Iopamidol 755 Mg/Ml 100 Ml Bottle) 100 ml IVPUSH ONETIME ONE Stop: 12/08/20 08:53 Last Admin: 12/08/20 10:18 Dose: 100 ml Documented by: Sodium Chloride (Sodium Chloride 0.9% 10 Ml Syringe) 10 ml FLUSH ONETIME PRN PRN Reason: IV FLUSH Stop: 12/08/20 12:00 Last Admin: 12/08/20 10:18 Dose: 10 ml Documented by: - Exam Physical Findings Comments:: Gen: obese male in no distress Neck: supple HEENT: NCAT EOMI MMM CV: IRIR normal s1 s2 Lungs: Coarse breath sounds Abd: Soft, nt, nd Neuro: nonfocal screening exam - Patient Data Lab Results Last 24 hrs: Laboratory Results - last 24 hr 12/09/20 12/09/20 12/09/20 Range/Units 09:03 15:57 20:58 WBC (4.23-9.07) K/mm3 RBC (4.63-6.08) M/mm3 Hgb (13.7-17.5) gm/dl Hct (40.1-51.0) % MCV (79.0-92.2) fl MCH (25.7-32.2) pg MCHC (32.2-35.5) g/dl RDW Std Deviation (35.1-43.9) fL Plt Count (163-337) K/mm3 MPV (9.4-12.3) fl Neut % (Auto) (34.0-67.9) % Lymph % (Auto) (21.8-53.1) % Monroe % (Auto) (5.3-12.2) % Eos % (Auto) (0.8-7.0) Baso % (Auto) (0.1-1.2) % Neut # (Auto) (1.78-5.38) K/mm3 Lymph # (Auto) (1.32-3.57) K/mm3 Monroe # (Auto) (0.30-0.82) K/mm3 Eos # (Auto) (0.04-0.54) K/mm3 Baso # (Auto) (0.01-0.08) K/mm3 Sodium (136-145) mEq/L Potassium (3.5-5.1) mEq/L Chloride (98-107) mEq/L Carbon Dioxide (21-32) mEq/L Anion Gap (5-15) BUN (7-18) mg/dL Creatinine (0.7-1.3) mg/dL Est Cr Clr Drug Dosing mL/min Estimated GFR (MDRD) (>60) mL/min BUN/Creatinine Ratio (14-18) Glucose (70-99) mg/dL POC Glucose 203 H 155 H (70-99) mg/dL Calcium (8.5-10.1) mg/dL Total Bilirubin (0.2-1.0) mg/dL Direct Bilirubin (0.0-0.2) mg/dl Indirect Bilirubin AST (15-37) U/L ALT (16-63) U/L Alkaline Phosphatase (46-116) U/L Total Protein (6.4-8.2) g/dl Albumin (3.4-5.0) g/dl Globulin gm/dL Albumin/Globulin Ratio (1-2) Procalcitonin 0.09 ng/mL 12/10/20 12/10/20 12/10/20 Range/Units 06:06 06:06 06:25 WBC 5.82 (4.23-9.07) K/mm3 RBC 5.01 (4.63-6.08) M/mm3 Hgb 13.1 L (13.7-17.5) gm/dl Hct 42.9 (40.1-51.0) % MCV 85.6 (79.0-92.2) fl MCH 26.1 (25.7-32.2) pg MCHC 30.5 L (32.2-35.5) g/dl RDW Std Deviation 51.3 H (35.1-43.9) fL Plt Count 203 (163-337) K/mm3 MPV 11.2 (9.4-12.3) fl Neut % (Auto) 75.4 H (34.0-67.9) % Lymph % (Auto) 13.6 L (21.8-53.1) % Monroe % (Auto) 10.7 (5.3-12.2) % Eos % (Auto) 0 L (0.8-7.0) Baso % (Auto) 0.0 L (0.1-1.2) % Neut # (Auto) 4.39 (1.78-5.38) K/mm3 Lymph # (Auto) 0.79 L (1.32-3.57) K/mm3 Monroe # (Auto) 0.62 (0.30-0.82) K/mm3 Eos # (Auto) 0.00 L (0.04-0.54) K/mm3 Baso # (Auto) 0.00 L (0.01-0.08) K/mm3 Sodium 145 (136-145) mEq/L Potassium 4.0 (3.5-5.1) mEq/L Chloride 109 H (98-107) mEq/L Carbon Dioxide 29 (21-32) mEq/L Anion Gap 11.0 (5-15) BUN 23 H (7-18) mg/dL Creatinine 1.0 (0.7-1.3) mg/dL Est Cr Clr Drug Dosing 66.92 mL/min Estimated GFR (MDRD) > 60 (>60) mL/min BUN/Creatinine Ratio 23.0 H (14-18) Glucose 140 H (70-99) mg/dL POC Glucose 141 H (70-99) mg/dL Calcium 8.1 L (8.5-10.1) mg/dL Total Bilirubin 0.5 (0.2-1.0) mg/dL Direct Bilirubin 0.20 (0.0-0.2) mg/dl Indirect Bilirubin 0.30 AST 151 H (15-37) U/L ALT 140 H (16-63) U/L Alkaline Phosphatase 61 (46-116) U/L Total Protein 5.9 L (6.4-8.2) g/dl Albumin 2.4 L (3.4-5.0) g/dl Globulin 3.5 gm/dL Albumin/Globulin Ratio 0.7 L (1-2) Procalcitonin ng/mL 12/10/20 Range/Units 10:30 WBC (4.23-9.07) K/mm3 RBC (4.63-6.08) M/mm3 Hgb (13.7-17.5) gm/dl Hct (40.1-51.0) % MCV (79.0-92.2) fl MCH (25.7-32.2) pg MCHC (32.2-35.5) g/dl RDW Std Deviation (35.1-43.9) fL Plt Count (163-337) K/mm3 MPV (9.4-12.3) fl Neut % (Auto) (34.0-67.9) % Lymph % (Auto) (21.8-53.1) % Monroe % (Auto) (5.3-12.2) % Eos % (Auto) (0.8-7.0) Baso % (Auto) (0.1-1.2) % Neut # (Auto) (1.78-5.38) K/mm3 Lymph # (Auto) (1.32-3.57) K/mm3 Monroe # (Auto) (0.30-0.82) K/mm3 Eos # (Auto) (0.04-0.54) K/mm3 Baso # (Auto) (0.01-0.08) K/mm3 Sodium (136-145) mEq/L Potassium (3.5-5.1) mEq/L Chloride (98-107) mEq/L Carbon Dioxide (21-32) mEq/L Anion Gap (5-15) BUN (7-18) mg/dL Creatinine (0.7-1.3) mg/dL Est Cr Clr Drug Dosing mL/min Estimated GFR (MDRD) (>60) mL/min BUN/Creatinine Ratio (14-18) Glucose (70-99) mg/dL POC Glucose 203 H (70-99) mg/dL Calcium (8.5-10.1) mg/dL Total Bilirubin (0.2-1.0) mg/dL Direct Bilirubin (0.0-0.2) mg/dl Indirect Bilirubin AST (15-37) U/L ALT (16-63) U/L Alkaline Phosphatase (46-116) U/L Total Protein (6.4-8.2) g/dl Albumin (3.4-5.0) g/dl Globulin gm/dL Albumin/Globulin Ratio (1-2) Procalcitonin ng/mL Result Diagrams: 12/10/20 06:06 12/10/20 06:06 Sepsis Event Note - Evaluation Sepsis Screening Result: No Definite Risk - Focused Exam Vital Signs: Vital Signs Temp Pulse Resp BP Pulse Ox Pulse Ox 12/10/20 08:52 96 12/10/20 08:05 49 L 12/10/20 07:56 97.9 F 49 L 20 154/75 H 93 L 12/10/20 06:18 91 L 12/10/20 05:30 98.1 F 48 L 20 145/79 H 93 L 12/10/20 02:09 97.5 F 49 L 16 171/77 H 94 L - Problem List Review Problem List Initiated/Reviewed/Updated: Yes - My Orders Last 24 Hours: My Active Orders 12/09/20 11:04 bisacodyL [Dulcolax] 10 mg RECTAL DAILY PRN 12/09/20 13:35 Blood Glucose Check, Bedside [RC] WITHMEALSANDBED 12/09/20 17:00 Insulin Lispro [HumaLOG] See Protocol SUBCUT QIDACANDBED 12/09/20 18:00 Insulin Glarg,Human.Rec.Analog [LantUS] 4 unit SUBCUT 1800 12/09/20 20:37 Carboxymethylcellulose Sodium [Refresh Liquigel 1%] 1 ml EYEBOTH TID PRN 12/11/20 06:00 BASIC METABOLIC PANEL,BMP [CHEM] DAILY CBC WITH AUTO DIFF [HEME] DAILY HEPATIC FUNCTION PANEL,HFP [CHEM] DAILY 12/12/20 06:00 BASIC METABOLIC PANEL,BMP [CHEM] DAILY CBC WITH AUTO DIFF [HEME] DAILY HEPATIC FUNCTION PANEL,HFP [CHEM] DAILY - Plan Plan:: The patient is a 75-year-old gentleman who has been admitted as an inpatient due to acute respiratory failure from COVID-19. He also has pneumonia due to COVID-19. The patient will be started on remdesivir 200 mg initial dose followed by 100 mg for 4 days. He is also been placed on dexamethasone for the next 10 days. The patient currently has chronic atrial fibrillation and is anticoagulated with Eliquis therefore pharmacological DVT prophylaxis will not be needed. The patient will also be kept on telemetry. Also in concerned that the patient would be a fall risk and does not need SCDs. Patient also has hypokalemia and his electrolytes have been replaced. I have ordered repeat laboratory studies for the morning. PT OT will be ordered due to the patient's chronic pain and weakness. Regular heart healthy diet has been ordered for the patient. He has been encouraged to ambulate as he can. His home medications will be restarted once verified. The patient should be appropriate for discharge in 4 to 5 days depending upon his oxygen requirements and medication completion. Due to the patient's age and weakness long term facility may be needed. Assessment 75M presenting with Acute hypoxic respiratory failure secondary to COVID 19 PNA; has not been vaccinated unfortunately 1. Acute hypoxic Respiratory failure secondary to COVID 19 PNA 2. Hx of CAD/3v CABG/CHF 3. Chest pain 4. Hx of Atrial Fibrillation on eliquis 5. Hypokalemia 6. hx of Depression 7. Steroid induced hyperglycemia -CT PE study negative for PE -prn morphine/ntg -EKG-completed -Echo pending -continue tele -electrolyte replacement -RT following -discontinued IVF from admission -continue steroids/remdesivir -completed actemra on 12/09 -continue lantus and SSI humalog -follow LFTs/renal function Code Status-Full code DVT ppx-eliquis Anticipated LOS 2-3 days will need completion of remdesivir therapy
[2020-12-10] MEDS: Morphine 2 MG/ML SYRINGE IVPUSH PRN ×2 (13:52→18:13)
[2020-12-10] MEDS ORDERED: Diltiazem 120 MG Cap.CD PO ONE (17:32)
[2020-12-10] MEDS: Insulin Glarg,Human.Rec.Analog 100 Unit/ML SUBCUT SCH (17:46)
[2020-12-10] MEDS: REMDESIVIR 100 MG in Sodium Chloride 0.9% 100 ML IV SCH (21:27)
[2020-12-11] MEDS: Acetaminophen 325 MG Tab PO PRN (00:30)
[2020-12-11] MEDS: Benzocaine/Cetylpyridinium/Menthol Lozenge MUCMEM PRN (00:30)
[2020-12-11] MEDS: Albuterol 6.7 GM Inhaler INH PRN (01:05)
[2020-12-11] MEDS: HYDROmorphone 2 MG Tab PO SCH ×4 (05:14→22:05)
[2020-12-11] MEDS: Insulin Lispro 100 UNIT/ML 10 ML Vial SUBCUT SCH ×4 (06:28→21:13)
[2020-12-11] MEDS: Cholecalciferol (Vitamin D3) 5,000 UNIT Cap PO SCH (08:23)
[2020-12-11] MEDS: Potassium Chloride 20 MEQ Tab.ER PO SCH ×3 (08:24→20:51)
[2020-12-11] MEDS: Aspirin 81 MG Tab.Chew PO SCH (08:24)
[2020-12-11] MEDS: Allopurinol 300 MG Tab PO SCH (08:25)
[2020-12-11] MEDS: Pantoprazole 40 MG Tab.CR PO SCH (08:25)
[2020-12-11] MEDS: Torsemide 20 MG Tab PO SCH (08:25)
[2020-12-11] MEDS: Dexamethasone 4 MG Tab PO SCH (08:26)
[2020-12-11] MEDS: Apixaban 5 MG Tab PO SCH ×2 (08:26→20:51)
[2020-12-11] MEDS: Sertraline 50 MG Tab PO SCH (08:26)
[2020-12-11] MEDS: Albuterol/Ipratropium 3.0-0.5 MG/3 ML Neb Soln NEB PRN (08:36)
[2020-12-11] MEDS: Diltiazem 120 MG Cap.CD PO SCH (09:14)
[2020-12-11] MEDS: Metoprolol Succinate 50 MG Tab.ER PO SCH (09:15)
[2020-12-11] MEDS ORDERED: hydrALAZINE 20 MG/ML SDV IVPUSH PRN (09:23)
[2020-12-11] MEDS: Hydrochlorothiazide 12.5 MG Cap PO SCH (09:37)
--- NOTE | 2020-12-11 10:38 | PCM.PN ---
- General Info Date of Service: 12/11/20 Admission Dx/Problem (Free Text): Still endorses SOB/cough still requiring high flow supplemental oxygen no new chest pain BP elevated this morning - Patient Data Vitals - Most Recent: Last Vital Signs Temp 97.5 F 12/11/20 08:22 Pulse 56 L 12/11/20 09:14 Resp 24 H 12/11/20 08:22 BP 175/85 H 12/11/20 09:14 Pulse Ox 90 L 12/11/20 08:40 Weight - Most Recent: 283 lb 1.6 oz I&O - Last 24 Hours: Intake & Output 12/10/20 12/11/20 12/11/20 22:59 06:59 14:59 Intake Total 1470 500 240 Output Total 1350 1025 Balance 120 -525 240 Lab Results Last 24 Hours: Laboratory Results - last 24 hr 12/10/20 12/10/20 12/10/20 Range/Units 10:30 15:39 21:25 WBC (4.23-9.07) K/mm3 RBC (4.63-6.08) M/mm3 Hgb (13.7-17.5) gm/dl Hct (40.1-51.0) % MCV (79.0-92.2) fl MCH (25.7-32.2) pg MCHC (32.2-35.5) g/dl RDW Std Deviation (35.1-43.9) fL Plt Count (163-337) K/mm3 MPV (9.4-12.3) fl Neut % (Auto) (34.0-67.9) % Lymph % (Auto) (21.8-53.1) % [place] % (Auto) (5.3-12.2) % Eos % (Auto) (0.8-7.0) Baso % (Auto) (0.1-1.2) % Neut # (Auto) (1.78-5.38) K/mm3 Lymph # (Auto) (1.32-3.57) K/mm3 [place] # (Auto) (0.30-0.82) K/mm3 Eos # (Auto) (0.04-0.54) K/mm3 Baso # (Auto) (0.01-0.08) K/mm3 Manual Slide Review Sodium (136-145) mEq/L Potassium (3.5-5.1) mEq/L Chloride (98-107) mEq/L Carbon Dioxide (21-32) mEq/L Anion Gap (5-15) BUN (7-18) mg/dL Creatinine (0.7-1.3) mg/dL Est Cr Clr Drug Dosing mL/min Estimated GFR (MDRD) (>60) mL/min BUN/Creatinine Ratio (14-18) Glucose (70-99) mg/dL POC Glucose 203 H 160 H 143 H (70-99) mg/dL Calcium (8.5-10.1) mg/dL Total Bilirubin (0.2-1.0) mg/dL Direct Bilirubin (0.0-0.2) mg/dl Indirect Bilirubin AST (15-37) U/L ALT (16-63) U/L Alkaline Phosphatase (46-116) U/L Total Protein (6.4-8.2) g/dl Albumin (3.4-5.0) g/dl Globulin gm/dL Albumin/Globulin Ratio (1-2) 12/11/20 12/11/20 12/11/20 Range/Units 05:47 06:13 07:25 WBC 7.14 (4.23-9.07) K/mm3 RBC 5.53 (4.63-6.08) M/mm3 Hgb 14.7 D (13.7-17.5) gm/dl Hct 46.0 (40.1-51.0) % MCV 83.2 (79.0-92.2) fl MCH 26.6 (25.7-32.2) pg MCHC 32.0 L (32.2-35.5) g/dl RDW Std Deviation 48.7 H (35.1-43.9) fL Plt Count 168 (163-337) K/mm3 MPV 11.6 (9.4-12.3) fl Neut % (Auto) 72.7 H (34.0-67.9) % Lymph % (Auto) 10.2 L (21.8-53.1) % [place] % (Auto) 8.0 (5.3-12.2) % Eos % (Auto) 7.7 H (0.8-7.0) Baso % (Auto) 0.1 (0.1-1.2) % Neut # (Auto) 5.19 (1.78-5.38) K/mm3 Lymph # (Auto) 0.73 L (1.32-3.57) K/mm3 [place] # (Auto) 0.57 (0.30-0.82) K/mm3 Eos # (Auto) 0.55 H (0.04-0.54) K/mm3 Baso # (Auto) 0.01 (0.01-0.08) K/mm3 Manual Slide Review Not Reportable Sodium 145 (136-145) mEq/L Potassium 4.2 (3.5-5.1) mEq/L Chloride 109 H (98-107) mEq/L Carbon Dioxide 26 (21-32) mEq/L Anion Gap 14.2 (5-15) BUN 23 H (7-18) mg/dL Creatinine 1.0 (0.7-1.3) mg/dL Est Cr Clr Drug Dosing 66.92 mL/min Estimated GFR (MDRD) > 60 (>60) mL/min BUN/Creatinine Ratio 23.0 H (14-18) Glucose 129 H (70-99) mg/dL POC Glucose 135 H (70-99) mg/dL Calcium 8.1 L (8.5-10.1) mg/dL Total Bilirubin 0.6 (0.2-1.0) mg/dL Direct Bilirubin 0.20 (0.0-0.2) mg/dl Indirect Bilirubin 0.40 AST 151 H (15-37) U/L ALT 185 H (16-63) U/L Alkaline Phosphatase 68 (46-116) U/L Total Protein 6.1 L (6.4-8.2) g/dl Albumin 2.6 L (3.4-5.0) g/dl Globulin 3.5 gm/dL Albumin/Globulin Ratio 0.7 L (1-2) Med Orders - Current: Current Medications Acetaminophen (Acetaminophen 325 Mg Tab) 650 mg PO Q4H PRN PRN Reason: Pain (moderate 4-6) Last Admin: 12/11/20 00:30 Dose: 650 mg Documented by: Albuterol (Albuterol 6.7 Gm Inhaler) 0 gm INH Q4H PRN PRN Reason: sob/wheezing Last Admin: 12/11/20 01:05 Dose: 2 puff Documented by: Albuterol/Ipratropium (Albuterol/Ipratropium 3.0-0.5 Mg/3 Ml Neb Soln) 3 ml NEB Q4H PRN PRN Reason: Shortness Of Breath/wheezing Last Admin: 12/11/20 08:36 Dose: 3 ml Documented by: Allopurinol (Allopurinol 300 Mg Tab) 300 mg PO DAILY [facility] Last Admin: 12/11/20 08:25 Dose: 300 mg Documented by: Apixaban (Apixaban 5 Mg Tab) 5 mg PO BID [facility] Last Admin: 12/11/20 08:26 Dose: 5 mg Documented by: Artificial Tears (Carboxymethylcellulose Sodium 1% Ophth Gel 15 Ml Bottle) 1 ml EYEBOTH TID PRN PRN Reason: Dry Eyes Last Admin: 12/10/20 08:07 Dose: 1 drop Documented by: Aspirin (Aspirin 81 Mg Tab.Chew) 81 mg PO DAILY [facility] Last Admin: 12/11/20 08:24 Dose: 81 mg Documented by: Benzocaine/Menthol (Benzocaine/Cetylpyridinium/Menthol Lozenge) 1 lozenge MUCMEM Q2H PRN PRN Reason: Sore Throat Last Admin: 12/11/20 00:30 Dose: 1 lozenge Documented by: Bisacodyl (Bisacodyl 10 Mg Supp) 10 mg RECTAL DAILY PRN PRN Reason: Constipation Last Admin: 12/09/20 12:22 Dose: 10 mg Documented by: Cholecalciferol (Cholecalciferol (Vitamin D3) 5,000 Unit Cap) 5,000 unit PO DAILY [facility] Last Admin: 12/11/20 08:23 Dose: 5,000 unit Documented by: Dexamethasone (Dexamethasone 4 Mg Tab) 6 mg PO DAILY [facility] Last Admin: 12/11/20 08:26 Dose: 6 mg Documented by: Diltiazem HCl (Diltiazem 120 Mg Cap.Cd) 120 mg PO DAILY [facility] Last Admin: 12/11/20 09:14 Dose: 120 mg Documented by: Hydralazine HCl (Hydralazine 20 Mg/Ml Sdv) 10 mg IVPUSH Q8H PRN PRN Reason: Other Hydrochlorothiazide (Hydrochlorothiazide 12.5 Mg Cap) 12.5 mg PO DAILY [facility] Last Admin: 12/11/20 09:37 Dose: 12.5 mg Documented by: Hydromorphone HCl (Hydromorphone 2 Mg Tab) 4 mg PO Q6H [facility] Last Admin: 12/11/20 05:14 Dose: 4 mg Documented by: Insulin Glargine (Insulin Glarg,Human.Rec.Analog 100 Unit/Ml) 4 unit SUBCUT 1800 [facility] Last Admin: 12/10/20 17:46 Dose: 4 units Documented by: Insulin Human Lispro (Insulin Lispro 100 Unit/Ml 10 Ml Vial) 0 unit SUBCUT QIDACANDBED [facility]; Protocol Last Admin: 12/11/20 06:28 Dose: Not Given Documented by: Metoprolol Succinate (Metoprolol Succinate 50 Mg Tab.Er) 50 mg PO DAILY [facility] Last Admin: 12/11/20 09:15 Dose: Not Given Documented by: Morphine Sulfate (Morphine 2 Mg/Ml Syringe) 2 mg IVPUSH Q1H PRN PRN Reason: chest pain Last Admin: 12/10/20 18:13 Dose: 2 mg Documented by: Nitroglycerin (Nitroglycerin 0.4 Mg Tab.Sl) 0.4 mg SL Q5M PRN PRN Reason: Chest Pain Ondansetron HCl (Ondansetron 4 Mg Tab.Dis) 4 mg PO Q4H PRN PRN Reason: nausea, able to take PO Last Admin: 12/08/20 09:57 Dose: 4 mg Documented by: Pantoprazole Sodium (Pantoprazole 40 Mg Tab.Cr) 40 mg PO DAILY [facility] Last Admin: 12/11/20 08:25 Dose: 40 mg Documented by: Potassium Chloride (Potassium Chloride 20 Meq Tab.Er) 20 meq PO TID [facility] Last Admin: 12/11/20 08:24 Dose: 20 meq Documented by: Sertraline HCl (Sertraline 50 Mg Tab) 50 mg PO DAILY [facility] Last Admin: 12/11/20 08:26 Dose: 50 mg Documented by: Sodium Chloride (Sodium Chloride 0.9% 10 Ml Syringe) 10 ml FLUSH ASDIRECTED PRN PRN Reason: Keep Vein Open Last Admin: 12/06/20 18:28 Dose: 10 ml Documented by: Temazepam (Temazepam 15 Mg Cap) 15 mg PO BEDTIME PRN PRN Reason: Sleep Torsemide (Torsemide 20 Mg Tab) 20 mg PO DAILY [facility] Last Admin: 12/11/20 08:25 Dose: 20 mg Documented by: Discontinued Medications Diltiazem HCl (Diltiazem 120 Mg Cap.Cd) 120 mg PO ONETIME ONE Stop: 12/10/20 17:33 Last Admin: 12/10/20 17:44 Dose: 120 mg Documented by: Sodium Chloride (Normal Saline) 1,000 mls @ 100 mls/hr IV ASDIRECTED [facility] Last Admin: 12/08/20 03:32 Dose: 100 mls/hr Documented by: Remdesivir 200 mg/ Sodium (Chloride) 250 mls @ 250 mls/hr IV ONETIME ONE Stop: 12/06/20 20:21 Last Admin: 12/06/20 22:06 Dose: 250 mls/hr Documented by: Potassium Chloride 10 meq/ (Premix) 100 mls @ 100 mls/hr IV Q1H [facility] Stop: 12/07/20 09:44 Last Admin: 12/07/20 10:10 Dose: 100 mls/hr Documented by: Remdesivir 100 mg/ Sodium (Chloride) 100 mls @ 100 mls/hr IV Q24H [facility] Stop: 12/10/20 22:59 Last Admin: 12/10/20 21:27 Dose: 100 mls/hr Documented by: Sodium Chloride (Normal Saline) 100 mls @ 75 mls/hr IV ASDIRECTED [facility] Stop: 12/08/20 12:00 Tocilizumab 800 mg/ Sodium (Chloride) 100 mls @ 100 mls/hr IV ONETIME ONE Stop: 12/09/20 12:01 Last Admin: 12/09/20 12:21 Dose: 100 mls/hr Documented by: Iopamidol (Iopamidol 755 Mg/Ml 100 Ml Bottle) 100 ml IVPUSH ONETIME ONE Stop: 12/08/20 08:53 Last Admin: 12/08/20 10:18 Dose: 100 ml Documented by: Sodium Chloride (Sodium Chloride 0.9% 10 Ml Syringe) 10 ml FLUSH ONETIME PRN PRN Reason: IV FLUSH Stop: 12/08/20 12:00 Last Admin: 12/08/20 10:18 Dose: 10 ml Documented by: - Exam Physical Findings Comments:: Gen: obese male in no distress Neck: supple HEENT: NCAT EOMI MMM CV: Bradycardic IRIR normal s1 s2 Lungs: Coarse breath sounds Abd: Soft, nt, nd Neuro: nonfocal screening exam - Patient Data Lab Results Last 24 hrs: Laboratory Results - last 24 hr 12/10/20 12/10/20 12/10/20 Range/Units 10:30 15:39 21:25 WBC (4.23-9.07) K/mm3 RBC (4.63-6.08) M/mm3 Hgb (13.7-17.5) gm/dl Hct (40.1-51.0) % MCV (79.0-92.2) fl MCH (25.7-32.2) pg MCHC (32.2-35.5) g/dl RDW Std Deviation (35.1-43.9) fL Plt Count (163-337) K/mm3 MPV (9.4-12.3) fl Neut % (Auto) (34.0-67.9) % Lymph % (Auto) (21.8-53.1) % [place] % (Auto) (5.3-12.2) % Eos % (Auto) (0.8-7.0) Baso % (Auto) (0.1-1.2) % Neut # (Auto) (1.78-5.38) K/mm3 Lymph # (Auto) (1.32-3.57) K/mm3 [place] # (Auto) (0.30-0.82) K/mm3 Eos # (Auto) (0.04-0.54) K/mm3 Baso # (Auto) (0.01-0.08) K/mm3 Manual Slide Review Sodium (136-145) mEq/L Potassium (3.5-5.1) mEq/L Chloride (98-107) mEq/L Carbon Dioxide (21-32) mEq/L Anion Gap (5-15) BUN (7-18) mg/dL Creatinine (0.7-1.3) mg/dL Est Cr Clr Drug Dosing mL/min Estimated GFR (MDRD) (>60) mL/min BUN/Creatinine Ratio (14-18) Glucose (70-99) mg/dL POC Glucose 203 H 160 H 143 H (70-99) mg/dL Calcium (8.5-10.1) mg/dL Total Bilirubin (0.2-1.0) mg/dL Direct Bilirubin (0.0-0.2) mg/dl Indirect Bilirubin AST (15-37) U/L ALT (16-63) U/L Alkaline Phosphatase (46-116) U/L Total Protein (6.4-8.2) g/dl Albumin (3.4-5.0) g/dl Globulin gm/dL Albumin/Globulin Ratio (1-2) 12/11/20 12/11/20 12/11/20 Range/Units 05:47 06:13 07:25 WBC 7.14 (4.23-9.07) K/mm3 RBC 5.53 (4.63-6.08) M/mm3 Hgb 14.7 D (13.7-17.5) gm/dl Hct 46.0 (40.1-51.0) % MCV 83.2 (79.0-92.2) fl MCH 26.6 (25.7-32.2) pg MCHC 32.0 L (32.2-35.5) g/dl RDW Std Deviation 48.7 H (35.1-43.9) fL Plt Count 168 (163-337) K/mm3 MPV 11.6 (9.4-12.3) fl Neut % (Auto) 72.7 H (34.0-67.9) % Lymph % (Auto) 10.2 L (21.8-53.1) % [place] % (Auto) 8.0 (5.3-12.2) % Eos % (Auto) 7.7 H (0.8-7.0) Baso % (Auto) 0.1 (0.1-1.2) % Neut # (Auto) 5.19 (1.78-5.38) K/mm3 Lymph # (Auto) 0.73 L (1.32-3.57) K/mm3 [place] # (Auto) 0.57 (0.30-0.82) K/mm3 Eos # (Auto) 0.55 H (0.04-0.54) K/mm3 Baso # (Auto) 0.01 (0.01-0.08) K/mm3 Manual Slide Review Not Reportable Sodium 145 (136-145) mEq/L Potassium 4.2 (3.5-5.1) mEq/L Chloride 109 H (98-107) mEq/L Carbon Dioxide 26 (21-32) mEq/L Anion Gap 14.2 (5-15) BUN 23 H (7-18) mg/dL Creatinine 1.0 (0.7-1.3) mg/dL Est Cr Clr Drug Dosing 66.92 mL/min Estimated GFR (MDRD) > 60 (>60) mL/min BUN/Creatinine Ratio 23.0 H (14-18) Glucose 129 H (70-99) mg/dL POC Glucose 135 H (70-99) mg/dL Calcium 8.1 L (8.5-10.1) mg/dL Total Bilirubin 0.6 (0.2-1.0) mg/dL Direct Bilirubin 0.20 (0.0-0.2) mg/dl Indirect Bilirubin 0.40 AST 151 H (15-37) U/L ALT 185 H (16-63) U/L Alkaline Phosphatase 68 (46-116) U/L Total Protein 6.1 L (6.4-8.2) g/dl Albumin 2.6 L (3.4-5.0) g/dl Globulin 3.5 gm/dL Albumin/Globulin Ratio 0.7 L (1-2) Result Diagrams: 12/11/20 05:47 12/11/20 07:25 Sepsis Event Note - Evaluation Sepsis Screening Result: No Definite Risk - Focused Exam Vital Signs: Vital Signs Temp Pulse Pulse Resp BP Pulse Ox Pulse Ox 12/11/20 09:14 56 L 175/85 H 12/11/20 08:40 90 L 12/11/20 08:39 90 L 12/11/20 08:36 92 L 12/11/20 08:29 56 L 12/11/20 08:22 97.5 F 53 L 24 H 175/85 H 89 L 12/11/20 05:17 97.9 F 47 L 18 160/82 H 94 L 12/11/20 01:06 100 12/11/20 00:06 97.5 F 55 L 16 165/70 H 91 L - Problem List Review Problem List Initiated/Reviewed/Updated: Yes - My Orders Last 24 Hours: My Active Orders 12/11/20 09:23 hydrALAZINE [Apresoline] 10 mg IVPUSH Q8H PRN 12/11/20 09:30 hydroCHLOROthiazide 12.5 mg PO DAILY 07/05/21 06:00 BASIC METABOLIC PANEL,BMP [CHEM] DAILY CBC WITH AUTO DIFF [HEME] DAILY HEPATIC FUNCTION PANEL,HFP [CHEM] DAILY 12/11; CXR +VBG - Plan Plan:: The patient is a 75-year-old gentleman who has been admitted as an inpatient due to acute respiratory failure from COVID-19. He also has pneumonia due to COVID-19. The patient will be started on remdesivir 200 mg initial dose followed by 100 mg for 4 days. He is also been placed on dexamethasone for the next 10 days. The patient currently has chronic atrial fibrillation and is anticoagulated with Eliquis therefore pharmacological DVT prophylaxis will not be needed. The patient will also be kept on telemetry. Also in concerned that the patient would be a fall risk and does not need SCDs. Patient also has hypokalemia and his electrolytes have been replaced. I have ordered repeat laboratory studies for the morning. PT OT will be ordered due to the patient's chronic pain and weakness. Regular heart healthy diet has been ordered for the patient. He has been encouraged to ambulate as he can. His home medications will be restarted once verified. The patient should be appropriate for discharge in 4 to 5 days depending upon his oxygen requirements and medication completion. Due to the patient's age and weakness senior living facility may be needed. Assessment 75M presenting with Acute hypoxic respiratory failure secondary to COVID 19 PNA; has not been vaccinated unfortunately 1. Acute hypoxic Respiratory failure secondary to COVID 19 PNA 2. Hx of CAD/3v CABG/CHF 3. Chest pain 4. Hx of Atrial Fibrillation on eliquis 5. Hypokalemia 6. hx of Depression 7. Steroid induced hyperglycemia 8. Hypertension -CT PE study negative for PE -prn morphine/ntg -EKG-completed -Echo pending -continue tele -electrolyte replacement -RT following -discontinued IVF from admission -continue steroids -completed remdesivir infusion -completed actemra on 12/09 -continue lantus and SSI humalog -follow LFTs/renal function/RUQ US in AM 12/12 -start HCTZ 12/11; holding BB due to bradycardia -check CXR and VBG today Code Status-Full code DVT ppx-eliquis Anticipated LOS 2-3 days stable oxygen requirements
--- NOTE | 2020-12-11 13:26 | CR ---
Chest: Portable view of the chest was obtained. Comparison: Prior chest x-ray of 12/07/19. Patchy areas of increased density are seen on both sides of the chest, worse on the right side. Findings are felt to be minimally increased from previous exam. Heart size is enlarged. Tortuous thoracic aorta is seen. Prior sternotomy is noted. Chronic rotator cuff tear is noted within the right shoulder. No acute osseous abnormality is appreciated. Impression: 1. Patchy areas of increased density are seen on both sides of the chest, worse on the right side. Findings are minimally increased from prior exam. Findings are compatible with continuing COVID pneumonia. 2. Other findings as noted above which are stable. Diagnostic code #3 I mildy disagree with preliminary report from [facility], finalized on 12/11/20, 1:44 PM CDT, code 2
[2020-12-11] MEDS: Insulin Glarg,Human.Rec.Analog 100 Unit/ML SUBCUT SCH (17:43)
[2020-12-12] MEDS: HYDROmorphone 2 MG Tab PO SCH ×4 (04:54→22:06)
[2020-12-12] MEDS: Insulin Lispro 100 UNIT/ML 10 ML Vial SUBCUT SCH ×4 (06:58→21:54)
[2020-12-12] MEDS: Diltiazem 120 MG Cap.CD PO SCH (08:47)
[2020-12-12] MEDS: Allopurinol 300 MG Tab PO SCH (08:47)
[2020-12-12] MEDS: Metoprolol Succinate 50 MG Tab.ER PO SCH (08:47)
[2020-12-12] MEDS: Dexamethasone 4 MG Tab PO SCH (08:48)
[2020-12-12] MEDS: Apixaban 5 MG Tab PO SCH ×2 (08:48→21:54)
[2020-12-12] MEDS: Pantoprazole 40 MG Tab.CR PO SCH (08:48)
[2020-12-12] MEDS: Hydrochlorothiazide 12.5 MG Cap PO SCH (08:48)
[2020-12-12] MEDS: Aspirin 81 MG Tab.Chew PO SCH (08:48)
[2020-12-12] MEDS: Torsemide 20 MG Tab PO SCH (08:48)
[2020-12-12] MEDS: Potassium Chloride 20 MEQ Tab.ER PO SCH ×3 (08:48→21:54)
[2020-12-12] MEDS: Cholecalciferol (Vitamin D3) 5,000 UNIT Cap PO SCH (08:48)
[2020-12-12] MEDS: Sertraline 50 MG Tab PO SCH (08:49)
--- NOTE | 2020-12-12 12:12 | US ---
Limited abdominal ultrasound: Multiple real-time images were obtained of the upper right abdomen. Comparison: No prior abdominal imaging is available. Technologist's note: Extremely limited due to body habitus, bowel gas and heavy breathing Findings: Liver is somewhat enlarged and is echogenic most likely representing fatty infiltration. No discrete abnormality is appreciated within the liver. Common bile duct and common hepatic duct are not seen. Gallbladder has been removed and is not visualized. Right kidney shows no hydronephrosis. Right kidney has a length of 13.9 cm. Pancreas is not seen. Portal vein shows normal hepatopedal flow. Impression: 1. Slightly enlarged liver with fatty infiltration. 2. Prior cholecystectomy. 3. No other gross abnormality is appreciated on this study. Diagnostic code #2
--- NOTE | 2020-12-12 16:54 | PCM.PN ---
- General Info Date of Service: 12/12/20 Admission Dx/Problem (Free Text): Brian LIVE Admission History & Physical Patient Name: CRYSTAL HAMILTON Date of : 1945 Patient Status: Inpatient Attending Provider: Ludwig Delgadillo Date: 12/07/20 06:43 Initialization Date: 12/07/20 06:43 H&P History of Present Illness - General Date of Service: 12/07/20 Admit Problem/Dx: Admission Diagnosis/Problem Admission Diagnosis/Problem Hypoxia Source of Information: Patient, EMS Notes Reviewed, Old Records History Limitations: Reports: No Limitations - History of Present Illness Initial Comments - Free Text/Narative: The patient is a 75-year-old gentleman who had presented to the emergency dep artment complaining of fever chills body aches low energy and dyspnea. Patient had presented to his clinic and his outpatient physician referred him directly to the emergency department with oxygen saturations reportedly in the low 80s. The patient has been in contact with his children who are COVID-19 positive. The patient says that he has a cough associated with this nonproductive. He also has been complaining of weakness and fatigue. Patient also has been taking high dose of hydromorphone at home due to his osteoarthritis and spinal pain. This has been chronic. The patient is somewhat of a poor historian. Onset of Symptoms: Reports: Gradual Duration of Symptoms: Reports: Day(s): Location: Reports: Generalized Severity: Moderate Improves with: Reports: Rest Worsens with: Reports: Movement Context: Reports: Sick Contact (Children positive for COVID-19.) Associated Symptoms: Reports: Diaphoresis, Nausea/Vomiting - Related Data Allergies/Adverse Reactions: Allergies Allergy/AdvReac Type Severity Reaction Status Date / Time atorvastatin [From Lipitor] Allergy Muscle Verified 12/06/20 17:46 Aches oxycodone Allergy Cannot Verified 12/06/20 17:46 Remember Home Medications: Home Meds Aspirin [[place] Aspirin] 81 mg PO DAILY 07/24/18 [History] Cholecalciferol (Vitamin D3) [Vitamin D3] 5,000 unit PO DAILY 07/24/18 [History] HYDROmorphone [Dilaudid] 4 mg PO Q6H PRN 07/24/18 [History] Metoprolol Succinate [Toprol XL 50mg] 50 mg PO DAILY 07/24/18 [History] Multivitamin [Multivitamins] 1 each PO DAILY 07/24/18 [History] Nitroglycerin [Nitrostat] 0.4 mg SL ASDIRECTED PRN 07/24/18 [History] Rosuvastatin [Crestor] 5 mg PO DAILY 07/24/18 [History] Sertraline [Zoloft] 50 mg PO DAILY 10/08/18 [History] Apixaban [Eliquis] 5 mg PO BID 10/29/19 [History] Potassium Chloride [Klor-Con M10] 10 meq PO DAILY 10/29/19 [History] Torsemide [Demadex] 40 mg PO DAILY 10/29/19 [History] amLODIPine [Norvasc] 2.5 mg PO DAILY 07/29/20 [History] dilTIAZem HCL [Diltiazem 24Hr ER] 1 cap PO QAM #14 cap.er.24h 07/29/20 [Rx] Past Medical History HEENT History: Reports: Hard of Hearing, Impaired Vision Other HEENT History: uses hearing aid Cardiovascular History: Reports: Afib, Arrhythmia, Bypass, Heart Failure, High Cholesterol, Hypertension, [place], SOB on Exertion Respiratory History: Reports: COPD Gastrointestinal History: Reports: None Genitourinary History: Reports: BPH Musculoskeletal History: Reports: Back Pain, Chronic, Gout, Osteoarthritis Psychiatric History: Reports: Anxiety, Depression Endocrine/Metabolic History: Reports: Obesity/BMI 30+ Hematologic History: Reports: None Immunologic History: Reports: None Oncologic (Cancer) History: Reports: None - Infectious Disease History Infectious Disease History: Reports: Chicken Pox, Measles, Mumps, Novel Coronavirus - Past Surgical History Head Surgeries/Procedures: Reports: None Cardiovascular Surgical History: Reports: Coronary Artery Bypass, Other (See Below) Other Cardiovascular Surgeries/Procedures: venous implant/ filter Respiratory Surgical History: Reports: None GI Surgical History: Reports: Cholecystectomy, Colonoscopy, EGD Male Surgical History: Reports: None Endocrine Surgical History: Reports: None Musculoskeletal Surgical History: Reports: Arthroscopic Knee, Knee Replacement Social & Family History - Family History Family Medical History: No Pertinent Family History - Tobacco Use Tobacco Use Status *Q: Never Tobacco User Second Hand Smoke Exposure: No - Caffeine Use Caffeine Use: Reports: None - Recreational Drug Use Recreational Drug Use: No - Living Situation & Occupation Living situation: Reports: , with Spouse Occupation: Retired H&P Review of Systems - Review of Systems: Review Of Systems: See Below General: Reports: Chills, Weakness, Fatigue HEENT: Reports: Other (Hard of hearing) Pulmonary: Reports: Shortness of Breath, Cough. Denies: Sputum, Hemoptysis Cardiovascular: Reports: No Symptoms Gastrointestinal: Reports: Nausea Genitourinary: Reports: No Symptoms Musculoskeletal: Reports: Shoulder Pain, Back Pain (Chronic), Leg Pain Skin: Reports: No Symptoms Psychiatric: Reports: No Symptoms Neurological: Reports: No Symptoms Hematologic/Lymphatic: Reports: No Symptoms Immunologic: Reports: No Symptoms Exam - Exam Exam: See Below - Vital Signs Vital Signs: Last Vital Signs Temp 37.0 C 12/07/20 04:31 Pulse 71 12/07/20 04:31 Resp 22 H 12/07/20 04:31 BP 137/77 12/07/20 04:31 Pulse Ox 95 12/07/20 06:21 Weight: 127.233 kg - Exam Quality Assessment: Supplemental Oxygen, DVT Prophylaxis General: Alert, Oriented, Cooperative HEENT: Conjunctiva Clear, EACs Clear, EOMI, Mucosa Moist & Convoy, PERRLA. No: Hearing Intact (Uses one hearing aid) Neck: Supple, Trachea Midline Lungs: Decreased Breath Sounds, Rales (Widespread) Cardiovascular: Regular Rate, Normal S1, Normal S2, Irregular Rhythm GI/Abdominal Exam: Normal Bowel Sounds, Soft, Non-Tender, No Distention. No: Guarding, Rigid, Rebound (Male) Exam: Deferred Rectal (Males) Exam: Deferred Back Exam: Normal Inspection (Appropriate for age), Full Range of Motion (Appropriate for age) Extremities: Normal Inspection, No Pedal Edema Skin: Warm, Intact, Moist (Diaphoretic) Neurological: Cranial Nerves Intact. No: Strength Equal Bilateral (Global weakness) Neuro Extensive - Motor, Sensory, Reflexes: CN II-XII Intact Psychiatric: Alert, Normal Affect, Normal Mood - Patient Data Lab Results Last 24 hrs: Laboratory Results - last 24 hr 12/06/20 12/06/20 12/06/20 Range/Units 18:08 18:15 18:45 WBC (4.23-9.07) K/mm3 RBC (4.63-6.08) M/mm3 Hgb (13.7-17.5) gm/dl Hct (40.1-51.0) % MCV (79.0-92.2) fl MCH (25.7-32.2) pg MCHC (32.2-35.5) g/dl RDW Std Deviation (35.1-43.9) fL Plt Count (163-337) K/mm3 MPV (9.4-12.3) fl Neut % (Auto) (34.0-67.9) % Lymph % (Auto) (21.8-53.1) % [facility] % (Auto) (5.3-12.2) % Eos % (Auto) (0.8-7.0) Baso % (Auto) (0.1-1.2) % Neut # (Auto) (1.78-5.38) K/mm3 Lymph # (Auto) (1.32-3.57) K/mm3 [facility] # (Auto) (0.30-0.82) K/mm3 Eos # (Auto) (0.04-0.54) K/mm3 Baso # (Auto) (0.01-0.08) K/mm3 D-Dimer, Quantitative (0.19-0.50) mg/L Puncture Site Lt radial ABG pH 7.48 H (7.35-7.45) ABG pCO2 31.0 L (35.0-45.0) mmHg ABG pO2 47.0 L (80.0-100.0) mmHg ABG HCO3 22.6 (22.0-26.0) meq/L ABG O2 Saturation 84.9 L (96.0-97.0) % ABG Base Excess 0.3 (-2-2.0) Dmitri Test Positive O2 Delivery Device Room air Oxygen Flow Rate 0.0 Sodium (136-145) mEq/L Potassium (3.5-5.1) mEq/L Chloride (98-107) mEq/L Carbon Dioxide (21-32) mEq/L Anion Gap (5-15) BUN (7-18) mg/dL Creatinine (0.7-1.3) mg/dL Est Cr Clr Drug Dosing mL/min Estimated GFR (MDRD) (>60) mL/min BUN/Creatinine Ratio (14-18) Glucose (70-99) mg/dL Calcium (8.5-10.1) mg/dL Ferritin (26-388) ng/ml Total Bilirubin (0.2-1.0) mg/dL AST (15-37) U/L ALT (16-63) U/L Alkaline Phosphatase (46-116) U/L Lactate Dehydrogenase (85-227) U/L C-Reactive Protein 14.0 H* (<1.0) mg/dL NT-Pro-B Natriuret Pep (0-125) pg/mL Total Protein (6.4-8.2) g/dl Albumin (3.4-5.0) g/dl Globulin gm/dL Albumin/Globulin Ratio (1-2) SARS-CoV-2 RNA (JAKE) Positive H (NEGATIVE) 12/06/20 12/06/20 12/06/20 Range/Units 18:45 18:45 18:45 WBC 6.99 (4.23-9.07) K/mm3 RBC 5.14 (4.63-6.08) M/mm3 Hgb 13.8 (13.7-17.5) gm/dl Hct 42.7 (40.1-51.0) % MCV 83.1 (79.0-92.2) fl MCH 26.8 (25.7-32.2) pg MCHC 32.3 (32.2-35.5) g/dl RDW Std Deviation 48.9 H (35.1-43.9) fL Plt Count 175 (163-337) K/mm3 MPV 10.8 (9.4-12.3) fl Neut % (Auto) 81.1 H (34.0-67.9) % Lymph % (Auto) 10.2 L (21.8-53.1) % [facility] % (Auto) 8.7 (5.3-12.2) % Eos % (Auto) 0 L (0.8-7.0) Baso % (Auto) 0.0 L (0.1-1.2) % Neut # (Auto) 5.67 H (1.78-5.38) K/mm3 Lymph # (Auto) 0.71 L (1.32-3.57) K/mm3 [facility] # (Auto) 0.61 (0.30-0.82) K/mm3 Eos # (Auto) 0.00 L (0.04-0.54) K/mm3 Baso # (Auto) 0.00 L (0.01-0.08) K/mm3 D-Dimer, Quantitative 0.79 H (0.19-0.50) mg/L Puncture Site ABG pH (7.35-7.45) ABG pCO2 (35.0-45.0) mmHg ABG pO2 (80.0-100.0) mmHg ABG HCO3 (22.0-26.0) meq/L ABG O2 Saturation (96.0-97.0) % ABG Base Excess (-2-2.0) Dmitri Test O2 Delivery Device Oxygen Flow Rate Sodium 137 (136-145) mEq/L Potassium 3.0 L (3.5-5.1) mEq/L Chloride 100 (98-107) mEq/L Carbon Dioxide 24 (21-32) mEq/L Anion Gap 16.0 H (5-15) BUN 12 (7-18) mg/dL Creatinine 1.3 (0.7-1.3) mg/dL Est Cr Clr Drug Dosing 51.47 mL/min Estimated GFR (MDRD) 54 (>60) mL/min BUN/Creatinine Ratio 9.2 L (14-18) Glucose 148 H (70-99) mg/dL Calcium 8.2 L (8.5-10.1) mg/dL Ferritin (26-388) ng/ml Total Bilirubin 0.4 (0.2-1.0) mg/dL AST 41 H (15-37) U/L ALT 27 (16-63) U/L Alkaline Phosphatase 64 (46-116) U/L Lactate Dehydrogenase 264 H (85-227) U/L C-Reactive Protein (<1.0) mg/dL NT-Pro-B Natriuret Pep (0-125) pg/mL Total Protein 7.2 (6.4-8.2) g/dl Albumin 3.2 L (3.4-5.0) g/dl Globulin 4.0 gm/dL Albumin/Globulin Ratio 0.8 L (1-2) SARS-CoV-2 RNA (JAKE) (NEGATIVE) 12/06/20 12/06/20 12/07/20 Range/Units 18:45 18:45 05:55 WBC 4.70 (4.23-9.07) K/mm3 RBC 4.91 (4.63-6.08) M/mm3 Hgb 13.2 L (13.7-17.5) gm/dl Hct 41.0 (40.1-51.0) % MCV 83.5 (79.0-92.2) fl MCH 26.9 (25.7-32.2) pg MCHC 32.2 (32.2-35.5) g/dl RDW Std Deviation 48.6 H (35.1-43.9) fL Plt Count 169 (163-337) K/mm3 MPV 10.7 (9.4-12.3) fl Neut % (Auto) (34.0-67.9) % Lymph % (Auto) (21.8-53.1) % [facility] % (Auto) (5.3-12.2) % Eos % (Auto) (0.8-7.0) Baso % (Auto) (0.1-1.2) % Neut # (Auto) (1.78-5.38) K/mm3 Lymph # (Auto) (1.32-3.57) K/mm3 [facility] # (Auto) (0.30-0.82) K/mm3 Eos # (Auto) (0.04-0.54) K/mm3 Baso # (Auto) (0.01-0.08) K/mm3 D-Dimer, Quantitative (0.19-0.50) mg/L Puncture Site ABG pH (7.35-7.45) ABG pCO2 (35.0-45.0) mmHg ABG pO2 (80.0-100.0) mmHg ABG HCO3 (22.0-26.0) meq/L ABG O2 Saturation (96.0-97.0) % ABG Base Excess (-2-2.0) Dmitri Test O2 Delivery Device Oxygen Flow Rate Sodium (136-145) mEq/L Potassium (3.5-5.1) mEq/L Chloride (98-107) mEq/L Carbon Dioxide (21-32) mEq/L Anion Gap (5-15) BUN (7-18) mg/dL Creatinine (0.7-1.3) mg/dL Est Cr Clr Drug Dosing mL/min Estimated GFR (MDRD) (>60) mL/min BUN/Creatinine Ratio (14-18) Glucose (70-99) mg/dL Calcium (8.5-10.1) mg/dL Ferritin 214 (26-388) ng/ml Total Bilirubin (0.2-1.0) mg/dL AST (15-37) U/L ALT (16-63) U/L Alkaline Phosphatase (46-116) U/L Lactate Dehydrogenase (85-227) U/L C-Reactive Protein (<1.0) mg/dL NT-Pro-B Natriuret Pep 413 H (0-125) pg/mL Total Protein (6.4-8.2) g/dl Albumin (3.4-5.0) g/dl Globulin gm/dL Albumin/Globulin Ratio (1-2) SARS-CoV-2 RNA (JAKE) (NEGATIVE) Result Diagrams: 12/07/20 05:55 12/07/20 05:55 Sepsis Event Note - Evaluation Sepsis Screening Result: Sepsis Risk Current Stage of Sepsis: Ruled Out Reason for Ruling Out Sepsis: Normal white blood cell count, no fever, COVID-19 positive test (U07.1, COVID-19) with Acute Pneumonia (J12.89, Other viral pneumonia) (If respiratory failure or sepsis present, add as separate assessment) Normotensive, no tachycardia - Focused Exam Vital Signs: Vital Signs Temp Pulse Pulse Resp BP BP Pulse Ox 12/07/20 06:21 12/07/20 04:31 37.0 C 71 22 H 137/77 91 L 12/07/20 01:03 36.8 C 73 22 H 144/95 H 91 L 12/06/20 20:19 80 18 150/89 H 94 L 12/06/20 20:17 36.7 C 95 16 156/92 H 94 L Pulse Ox 12/07/20 06:21 95 12/07/20 04:31 12/07/20 01:03 12/06/20 20:19 12/06/20 20:17 - Problem List (1) Acute respiratory failure due to COVID-19 SNOMED Code(s): 372539753 ICD Code: U07.1 - COVID-19; J96.00 - ACUTE RESPIRATORY FAILURE, UNSP W HYPOXIA OR HYPERCAPNIA Status: Acute Priority: High Current Visit: Yes (2) Pneumonia due to COVID-19 virus SNOMED Code(s): 050536915652696758 ICD Code: U07.1 - COVID-19; J12.82 - PNEUMONIA DUE TO CORONAVIRUS DISEASE 2 019 Status: Acute Priority: High Current Visit: Yes (3) Atrial fibrillation, chronic SNOMED Code(s): 658750239 ICD Code: I48.20 - CHRONIC ATRIAL FIBRILLATION, UNSPECIFIED Status: Chronic Priority: Medium Current Visit: Yes (4) Chronic anticoagulation SNOMED Code(s): 692410438 ICD Code: Z79.01 - GUEST RELATIONS AGENT (CURRENT) USE OF ANTICOAGULANTS Status: Chronic Priority: Medium Current Visit: Yes (5) Hypokalemia SNOMED Code(s): 77309127 ICD Code: E87.6 - HYPOKALEMIA Status: Acute Priority: High Current Visit: Yes Problem List Initiated/Reviewed/Updated: Yes Orders Last 24hrs: Active Orders 24 hr Category Date Time Status Admission Status [Patient Status] [ADT] Routine ADT 12/06/20 19:33 Active Patient Status [ADT] Routine ADT 12/06/20 20:21 Active Oxygen Therapy Adult [Oxygen Therapy] [RC] ASDIRECTED Care 12/06/20 20:15 Active Up With Assistance [RC] BID Care 12/06/20 22:33 Active Heart Healthy Diet [DIET] Diet 12/07/20 Breakfast Active COMPREHENSIVE METABOLIC PN,CMP [CHEM] Routine Lab 12/07/20 05:55 Received CRP [C-REACTIVE PROTEIN] [CHEM] Routine Lab 12/07/20 05:55 Received MAGNESIUM [CHEM] Routine Lab 12/07/20 05:55 Received Acetaminophen [TylenoL] Med 12/06/20 23:37 Active 650 mg PO Q4H PRN Sodium Chloride 0.9% [Normal Saline] 1,000 ml Med 12/06/20 20:15 Active IV ASDIRECTED Sodium Chloride 0.9% [Saline Flush] Med 12/06/20 18:00 Active 10 ml FLUSH ASDIRECTED PRN dexAMETHasone Med 12/06/20 20:30 Active 6 mg PO DAILY Isolation [COMM] Routine Oth 12/06/20 20:14 Ordered Peripheral IV Insertion Adult [OM.PC] Stat Oth 12/06/20 18:00 Ordered Pulse Oximetry Continuous Monitoring [OM.PC] Routine Oth 12/06/20 21:30 Active Code Status [Resuscitation Status] Routine Resus Stat 12/06/20 20:13 Ordered Medication Orders Acetaminophen (Acetaminophen 325 Mg Tab) 650 mg PO Q4H PRN PRN Reason: Pain (moderate 4-6) Last Admin: 12/07/20 00:59 Dose: 650 mg Documented by: ABE Dexamethasone (Dexamethasone 4 Mg Tab) 6 mg PO DAILY COUNT INCLUDES THE [facility] Last Admin: 12/06/20 22:17 Dose: Not Given Documented by: Admin: 12/06/20 22:08 Dose: 6 mg Documented by: NADINE Sodium Chloride (Normal Saline) 1,000 mls @ 100 mls/hr IV ASDIRECTED COUNT INCLUDES THE [facility] Last Admin: 12/06/20 22:07 Dose: 100 mls/hr Documented by: NADINE Sodium Chloride (Sodium Chloride 0.9% 10 Ml Syringe) 10 ml FLUSH ASDIRECTED PRN PRN Reason: Keep Vein Open Last Admin: 12/06/20 18:28 Dose: 10 ml Documented by: CARA Assessment/Plan Comment:: The patient is a 75-year-old gentleman who has been admitted as an inpatient due to acute respiratory failure from COVID-19. He also has pneumonia due to COVID- 19. The patient will be started on remdesivir 200 mg initial dose followed by 100 mg for 4 days. He is also been placed on dexamethasone for the next 10 days. The patient currently has chronic atrial fibrillation and is anticoagulated with Eliquis therefore pharmacological DVT prophylaxis will not be needed. The patient will also be kept on telemetry. Also in concerned that the patient would be a fall risk and does not need SCDs. Patient also has hypokalemia and his electrolytes have been replaced. I have ordered repeat laboratory studies for the morning. PT OT will be ordered due to the patient's chronic pain and weakness. Regular heart healthy diet has been ordered for the patient. He has been encouraged to ambulate as he can. His home medications will be restarted once verified. The patient should be appropriate for discharge in 4 to 5 days depending upon his oxygen requirements and medication completion. Due to the patient's age and weakness group home facility may be needed. - Mortality Measure Prognosis:: Good Subjective Update: 12/12/20 afebrile on high flow o2 and sats decreased but no prone position during overnight associate. patient anxious but better since getting up to chair. vs as recorded. denies appetite yet /feels okay but chronic persaud at rest. lungs cracles rt base and posterior. wheeze occasionally left . cor rrr 90-100 abd benign. neuro oriented and coop. mild anxiety better after just talking. skin normal lab b.s mildly elevated. assess//plan 1// covid pneumoni/ abd soft and non tender and monitor but prob acute phase elevations t.b okay boh a requiring high flow / nebs /steriods day 6. recheck labs in am a nd chest xray in am .not much progress but now day 8 since symptoms began . treating without weaning o2 per covid protocol currently 65 and fio2 55% 2// cad appears stable 3// chf appears compensated and hopefully will start to resolve. 4// renal function and uo good. 5//anxiety mild to mod. and monitoring. 6// elavated lfts without alp phos elavation Functional Status: Reports: Pain Controlled - Review of Systems General: Reports: Fever, Weakness, Fatigue Pulmonary: Reports: Shortness of Breath, Cough, Wheezing Cardiovascular: Reports: Dyspnea on Exertion. Denies: Chest Pain, Palpitations, Orthopnea Gastrointestinal: Reports: No Symptoms Genitourinary: Reports: No Symptoms Musculoskeletal: Reports: Neck Pain, Shoulder Pain. Denies: No Symptoms Skin: Reports: No Symptoms Neurological: Reports: No Symptoms - Patient Data Vitals - Most Recent: Last Vital Signs Temp 36.6 C 12/12/20 15:26 Pulse 67 12/12/20 15:26 Resp 20 12/12/20 15:26 BP 112/88 12/12/20 15:26 Pulse Ox 96 12/12/20 16:39 Weight - Most Recent: 127.596 kg I&O - Last 24 Hours: Intake & Output 12/12/20 12/12/20 12/12/20 06:59 14:59 22:59 Intake Total 400 700 Output Total 750 800 Balance -350 -100 Lab Results Last 24 Hours: Laboratory Results - last 24 hr 12/11/20 12/11/20 12/12/20 Range/Units 16:45 20:50 05:43 WBC 7.69 (4.23-9.07) K/mm3 RBC 5.80 (4.63-6.08) M/mm3 Hgb 15.2 (13.7-17.5) gm/dl Hct 48.1 (40.1-51.0) % MCV 82.9 (79.0-92.2) fl MCH 26.2 (25.7-32.2) pg MCHC 31.6 L (32.2-35.5) g/dl RDW Std Deviation 48.3 H (35.1-43.9) fL Plt Count 238 (163-337) K/mm3 MPV 11.0 (9.4-12.3) fl Neut % (Auto) 82.4 H (34.0-67.9) % Lymph % (Auto) 9.1 L (21.8-53.1) % [facility] % (Auto) 7.7 (5.3-12.2) % Eos % (Auto) 0.1 L (0.8-7.0) Baso % (Auto) 0.0 L (0.1-1.2) % Neut # (Auto) 6.34 H (1.78-5.38) K/mm3 Lymph # (Auto) 0.70 L (1.32-3.57) K/mm3 [facility] # (Auto) 0.59 (0.30-0.82) K/mm3 Eos # (Auto) 0.01 L (0.04-0.54) K/mm3 Baso # (Auto) 0.00 L (0.01-0.08) K/mm3 Manual Slide Review Normal smear Sodium (136-145) mEq/L Potassium (3.5-5.1) mEq/L Chloride (98-107) mEq/L Carbon Dioxide (21-32) mEq/L Anion Gap (5-15) BUN (7-18) mg/dL Creatinine (0.7-1.3) mg/dL Est Cr Clr Drug Dosing mL/min Estimated GFR (MDRD) (>60) mL/min BUN/Creatinine Ratio (14-18) Glucose (70-99) mg/dL POC Glucose 162 H 187 H (70-99) mg/dL Calcium (8.5-10.1) mg/dL Total Bilirubin (0.2-1.0) mg/dL Direct Bilirubin (0.0-0.2) mg/dl Indirect Bilirubin AST (15-37) U/L ALT (16-63) U/L Alkaline Phosphatase (46-116) U/L Total Protein (6.4-8.2) g/dl Albumin (3.4-5.0) g/dl Globulin gm/dL Albumin/Globulin Ratio (1-2) Vitamin D 25-Hydroxy (30.0-100.0) ng/ml 12/12/20 12/12/20 12/12/20 Range/Units 05:43 05:43 06:28 WBC (4.23-9.07) K/mm3 RBC (4.63-6.08) M/mm3 Hgb (13.7-17.5) gm/dl Hct (40.1-51.0) % MCV (79.0-92.2) fl MCH (25.7-32.2) pg MCHC (32.2-35.5) g/dl RDW Std Deviation (35.1-43.9) fL Plt Count (163-337) K/mm3 MPV (9.4-12.3) fl Neut % (Auto) (34.0-67.9) % Lymph % (Auto) (21.8-53.1) % [facility] % (Auto) (5.3-12.2) % Eos % (Auto) (0.8-7.0) Baso % (Auto) (0.1-1.2) % Neut # (Auto) (1.78-5.38) K/mm3 Lymph # (Auto) (1.32-3.57) K/mm3 [facility] # (Auto) (0.30-0.82) K/mm3 Eos # (Auto) (0.04-0.54) K/mm3 Baso # (Auto) (0.01-0.08) K/mm3 Manual Slide Review Sodium 143 (136-145) mEq/L Potassium 4.1 (3.5-5.1) mEq/L Chloride 107 (98-107) mEq/L Carbon Dioxide 27 (21-32) mEq/L Anion Gap 13.1 (5-15) BUN 25 H (7-18) mg/dL Creatinine 1.1 (0.7-1.3) mg/dL Est Cr Clr Drug Dosing 60.83 mL/min Estimated GFR (MDRD) > 60 (>60) mL/min BUN/Creatinine Ratio 22.7 H (14-18) Glucose 143 H (70-99) mg/dL POC Glucose 122 H (70-99) mg/dL Calcium 8.4 L (8.5-10.1) mg/dL Total Bilirubin 0.9 (0.2-1.0) mg/dL Direct Bilirubin 0.30 H (0.0-0.2) mg/dl Indirect Bilirubin 0.60 AST 111 H (15-37) U/L ALT 222 H (16-63) U/L Alkaline Phosphatase 73 (46-116) U/L Total Protein 6.4 (6.4-8.2) g/dl Albumin 2.8 L (3.4-5.0) g/dl Globulin 3.6 gm/dL Albumin/Globulin Ratio 0.8 L (1-2) Vitamin D 25-Hydroxy 60.6 (30.0-100.0) ng/ml 12/12/20 12/12/20 Range/Units 11:29 16:12 WBC (4.23-9.07) K/mm3 RBC (4.63-6.08) M/mm3 Hgb (13.7-17.5) gm/dl Hct (40.1-51.0) % MCV (79.0-92.2) fl MCH (25.7-32.2) pg MCHC (32.2-35.5) g/dl RDW Std Deviation (35.1-43.9) fL Plt Count (163-337) K/mm3 MPV (9.4-12.3) fl Neut % (Auto) (34.0-67.9) % Lymph % (Auto) (21.8-53.1) % [facility] % (Auto) (5.3-12.2) % Eos % (Auto) (0.8-7.0) Baso % (Auto) (0.1-1.2) % Neut # (Auto) (1.78-5.38) K/mm3 Lymph # (Auto) (1.32-3.57) K/mm3 [facility] # (Auto) (0.30-0.82) K/mm3 Eos # (Auto) (0.04-0.54) K/mm3 Baso # (Auto) (0.01-0.08) K/mm3 Manual Slide Review Sodium (136-145) mEq/L Potassium (3.5-5.1) mEq/L Chloride (98-107) mEq/L Carbon Dioxide (21-32) mEq/L Anion Gap (5-15) BUN (7-18) mg/dL Creatinine (0.7-1.3) mg/dL Est Cr Clr Drug Dosing mL/min Estimated GFR (MDRD) (>60) mL/min BUN/Creatinine Ratio (14-18) Glucose (70-99) mg/dL POC Glucose 173 H 232 H (70-99) mg/dL Calcium (8.5-10.1) mg/dL Total Bilirubin (0.2-1.0) mg/dL Direct Bilirubin (0.0-0.2) mg/dl Indirect Bilirubin AST (15-37) U/L ALT (16-63) U/L Alkaline Phosphatase (46-116) U/L Total Protein (6.4-8.2) g/dl Albumin (3.4-5.0) g/dl Globulin gm/dL Albumin/Globulin Ratio (1-2) Vitamin D 25-Hydroxy (30.0-100.0) ng/ml Med Orders - Current: Current Medications Acetaminophen (Acetaminophen 325 Mg Tab) 650 mg PO Q4H PRN PRN Reason: Pain (moderate 4-6) Last Admin: 12/11/20 00:30 Dose: 650 mg Documented by: Albuterol (Albuterol 6.7 Gm Inhaler) 0 gm INH Q4H PRN PRN Reason: sob/wheezing Last Admin: 12/11/20 01:05 Dose: 2 puff Documented by: Albuterol/Ipratropium (Albuterol/Ipratropium 3.0-0.5 Mg/3 Ml Neb Soln) 3 ml NEB Q4H PRN PRN Reason: Shortness Of Breath/wheezing Last Admin: 12/11/20 08:36 Dose: 3 ml Documented by: Allopurinol (Allopurinol 300 Mg Tab) 300 mg PO DAILY COUNT INCLUDES THE [facility] Last Admin: 12/12/20 08:47 Dose: 300 mg Documented by: Apixaban (Apixaban 5 Mg Tab) 5 mg PO BID COUNT INCLUDES THE [facility] Last Admin: 12/12/20 08:48 Dose: 5 mg Documented by: Artificial Tears (Carboxymethylcellulose Sodium 1% Ophth Gel 15 Ml Bottle) 1 ml EYEBOTH TID PRN PRN Reason: Dry Eyes Last Admin: 12/10/20 08:07 Dose: 1 drop Documented by: Aspirin (Aspirin 81 Mg Tab.Chew) 81 mg PO DAILY COUNT INCLUDES THE [facility] Last Admin: 12/12/20 08:48 Dose: 81 mg Documented by: Benzocaine/Menthol (Benzocaine/Cetylpyridinium/Menthol Lozenge) 1 lozenge MUCMEM Q2H PRN PRN Reason: Sore Throat Last Admin: 12/11/20 00:30 Dose: 1 lozenge Documented by: Bisacodyl (Bisacodyl 10 Mg Supp) 10 mg RECTAL DAILY PRN PRN Reason: Constipation Last Admin: 12/09/20 12:22 Dose: 10 mg Documented by: Cholecalciferol (Cholecalciferol (Vitamin D3) 5,000 Unit Cap) 5,000 unit PO DAILY COUNT INCLUDES THE [facility] Last Admin: 12/12/20 08:48 Dose: 5,000 unit Documented by: Dexamethasone (Dexamethasone 4 Mg Tab) 6 mg PO DAILY COUNT INCLUDES THE [facility] Last Admin: 12/12/20 08:48 Dose: 6 mg Documented by: Diltiazem HCl (Diltiazem 120 Mg Cap.Cd) 120 mg PO DAILY COUNT INCLUDES THE [facility] Last Admin: 12/12/20 08:47 Dose: 120 mg Documented by: Hydralazine HCl (Hydralazine 20 Mg/Ml Sdv) 10 mg IVPUSH Q8H PRN PRN Reason: Other Hydrochlorothiazide (Hydrochlorothiazide 12.5 Mg Cap) 12.5 mg PO DAILY COUNT INCLUDES THE [facility] Last Admin: 12/12/20 08:48 Dose: 12.5 mg Documented by: Hydromorphone HCl (Hydromorphone 2 Mg Tab) 4 mg PO Q6H COUNT INCLUDES THE [facility] Last Admin: 12/12/20 15:59 Dose: 4 mg Documented by: Insulin Glargine (Insulin Glarg,Human.Rec.Analog 100 Unit/Ml) 4 unit SUBCUT 1800 COUNT INCLUDES THE [facility] Last Admin: 12/11/20 17:43 Dose: 4 units Documented by: Insulin Human Lispro (Insulin Lispro 100 Unit/Ml 10 Ml Vial) 0 unit SUBCUT QIDACANDBED COUNT INCLUDES THE [facility]; Protocol Last Admin: 12/12/20 12:24 Dose: Not Given Documented by: Metoprolol Succinate (Metoprolol Succinate 50 Mg Tab.Er) 50 mg PO DAILY COUNT INCLUDES THE [facility] Last Admin: 12/12/20 08:47 Dose: 50 mg Documented by: Morphine Sulfate (Morphine 2 Mg/Ml Syringe) 2 mg IVPUSH Q1H PRN PRN Reason: chest pain Last Admin: 12/10/20 18:13 Dose: 2 mg Documented by: Nitroglycerin (Nitroglycerin 0.4 Mg Tab.Sl) 0.4 mg SL Q5M PRN PRN Reason: Chest Pain Ondansetron HCl (Ondansetron 4 Mg Tab.Dis) 4 mg PO Q4H PRN PRN Reason: nausea, able to take PO Last Admin: 12/08/20 09:57 Dose: 4 mg Documented by: Pantoprazole Sodium (Pantoprazole 40 Mg Tab.Cr) 40 mg PO DAILY COUNT INCLUDES THE [facility] Last Admin: 12/12/20 08:48 Dose: 40 mg Documented by: Potassium Chloride (Potassium Chloride 20 Meq Tab.Er) 20 meq PO TID COUNT INCLUDES THE [facility] Last Admin: 12/12/20 15:55 Dose: 20 meq Documented by: Sertraline HCl (Sertraline 50 Mg Tab) 50 mg PO DAILY COUNT INCLUDES THE [facility] Last Admin: 12/12/20 08:49 Dose: 50 mg Documented by: Sodium Chloride (Sodium Chloride 0.9% 10 Ml Syringe) 10 ml FLUSH ASDIRECTED PRN PRN Reason: Keep Vein Open Last Admin: 12/06/20 18:28 Dose: 10 ml Documented by: Temazepam (Temazepam 15 Mg Cap) 15 mg PO BEDTIME PRN PRN Reason: Sleep Torsemide (Torsemide 20 Mg Tab) 20 mg PO DAILY COUNT INCLUDES THE [facility] Last Admin: 12/12/20 08:48 Dose: 20 mg Documented by: Discontinued Medications Diltiazem HCl (Diltiazem 120 Mg Cap.Cd) 120 mg PO ONETIME ONE Stop: 12/10/20 17:33 Last Admin: 12/10/20 17:44 Dose: 120 mg Documented by: Sodium Chloride (Normal Saline) 1,000 mls @ 100 mls/hr IV ASDIRECTED COUNT INCLUDES THE [facility] Last Admin: 12/08/20 03:32 Dose: 100 mls/hr Documented by: Remdesivir 200 mg/ Sodium (Chloride) 250 mls @ 250 mls/hr IV ONETIME ONE Stop: 12/06/20 20:21 Last Admin: 12/06/20 22:06 Dose: 250 mls/hr Documented by: Potassium Chloride 10 meq/ (Premix) 100 mls @ 100 mls/hr IV Q1H ADRIANA Stop: 12/07/20 09:44 Last Admin: 12/07/20 10:10 Dose: 100 mls/hr Documented by: Remdesivir 100 mg/ Sodium (Chloride) 100 mls @ 100 mls/hr IV Q24H ADRIANA Stop: 12/10/20 22:59 Last Admin: 12/10/20 21:27 Dose: 100 mls/hr Documented by: Sodium Chloride (Normal Saline) 100 mls @ 75 mls/hr IV ASDIRECTED ADRIANA Stop: 12/08/20 12:00 Tocilizumab 800 mg/ Sodium (Chloride) 100 mls @ 100 mls/hr IV ONETIME ONE Stop: 12/09/20 12:01 Last Admin: 12/09/20 12:21 Dose: 100 mls/hr Documented by: Iopamidol (Iopamidol 755 Mg/Ml 100 Ml Bottle) 100 ml IVPUSH ONETIME ONE Stop: 12/08/20 08:53 Last Admin: 12/08/20 10:18 Dose: 100 ml Documented by: Sodium Chloride (Sodium Chloride 0.9% 10 Ml Syringe) 10 ml FLUSH ONETIME PRN PRN Reason: IV FLUSH Stop: 12/08/20 12:00 Last Admin: 12/08/20 10:18 Dose: 10 ml Documented by: - Exam Quality Assessment: Supplemental Oxygen General: Moderate Distress Lungs: Decreased Breath Sounds, Crackles, Rales, Wheezing Cardiovascular: Regular Rate, Regular Rhythm GI/Abdominal Exam: Normal Bowel Sounds, Soft, Non-Tender, No Organomegaly, No Distention, No Abnormal Bruit, No Mass, Pelvis Stable (Male) Exam: Deferred Back Exam: Normal Inspection, Full Range of Motion Extremities: Normal Inspection, Normal Range of Motion, Non-Tender, No Pedal Edema, Normal Capillary Refill Skin: Warm, Dry, Intact, Cool Wound/Incisions: Healing Well Neurological: No New Focal Deficit Psy/Mental Status: Anxious (crackles and occasional wheeze ronchii) - Patient Data Lab Results Last 24 hrs: Laboratory Results - last 24 hr 12/11/20 12/11/20 12/12/20 Range/Units 16:45 20:50 05:43 WBC 7.69 (4.23-9.07) K/mm3 RBC 5.80 (4.63-6.08) M/mm3 Hgb 15.2 (13.7-17.5) gm/dl Hct 48.1 (40.1-51.0) % MCV 82.9 (79.0-92.2) fl MCH 26.2 (25.7-32.2) pg MCHC 31.6 L (32.2-35.5) g/dl RDW Std Deviation 48.3 H (35.1-43.9) fL Plt Count 238 (163-337) K/mm3 MPV 11.0 (9.4-12.3) fl Neut % (Auto) 82.4 H (34.0-67.9) % Lymph % (Auto) 9.1 L (21.8-53.1) % [facility] % (Auto) 7.7 (5.3-12.2) % Eos % (Auto) 0.1 L (0.8-7.0) Baso % (Auto) 0.0 L (0.1-1.2) % Neut # (Auto) 6.34 H (1.78-5.38) K/mm3 Lymph # (Auto) 0.70 L (1.32-3.57) K/mm3 [facility] [facility] # (Auto) 0.59 (0.30-0.82) K/mm3 Eos # (Auto) 0.01 L (0.04-0.54) K/mm3 Baso # (Auto) 0.00 L (0.01-0.08) K/mm3 Manual Slide Review Normal smear Sodium (136-145) mEq/L Potassium (3.5-5.1) mEq/L Chloride (98-107) mEq/L Carbon Dioxide (21-32) mEq/L Anion Gap (5-15) BUN (7-18) mg/dL Creatinine (0.7-1.3) mg/dL Est Cr Clr Drug Dosing mL/min Estimated GFR (MDRD) (>60) mL/min BUN/Creatinine Ratio (14-18) Glucose (70-99) mg/dL POC Glucose 162 H 187 H (70-99) mg/dL Calcium (8.5-10.1) mg/dL Total Bilirubin (0.2-1.0) mg/dL Direct Bilirubin (0.0-0.2) mg/dl Indirect Bilirubin AST (15-37) U/L ALT (16-63) U/L Alkaline Phosphatase (46-116) U/L Total Protein (6.4-8.2) g/dl Albumin (3.4-5.0) g/dl Globulin gm/dL Albumin/Globulin Ratio (1-2) Vitamin D 25-Hydroxy (30.0-100.0) ng/ml 12/12/20 12/12/20 12/12/20 Range/Units 05:43 05:43 06:28 WBC (4.23-9.07) K/mm3 RBC (4.63-6.08) M/mm3 Hgb (13.7-17.5) gm/dl Hct (40.1-51.0) % MCV (79.0-92.2) fl MCH (25.7-32.2) pg MCHC (32.2-35.5) g/dl RDW Std Deviation (35.1-43.9) fL Plt Count (163-337) K/mm3 MPV (9.4-12.3) fl Neut % (Auto) (34.0-67.9) % Lymph % (Auto) (21.8-53.1) % [facility] [facility] % (Auto) (5.3-12.2) % Eos % (Auto) (0.8-7.0) Baso % (Auto) (0.1-1.2) % Neut # (Auto) (1.78-5.38) K/mm3 Lymph # (Auto) (1.32-3.57) K/mm3 [facility] [facility] # (Auto) (0.30-0.82) K/mm3 Eos # (Auto) (0.04-0.54) K/mm3 Baso # (Auto) (0.01-0.08) K/mm3 Manual Slide Review Sodium 143 (136-145) mEq/L Potassium 4.1 (3.5-5.1) mEq/L Chloride 107 (98-107) mEq/L Carbon Dioxide 27 (21-32) mEq/L Anion Gap 13.1 (5-15) BUN 25 H (7-18) mg/dL Creatinine 1.1 (0.7-1.3) mg/dL Est Cr Clr Drug Dosing 60.83 mL/min Estimated GFR (MDRD) > 60 (>60) mL/min BUN/Creatinine Ratio 22.7 H (14-18) Glucose 143 H (70-99) mg/dL POC Glucose 122 H (70-99) mg/dL Calcium 8.4 L (8.5-10.1) mg/dL Total Bilirubin 0.9 (0.2-1.0) mg/dL Direct Bilirubin 0.30 H (0.0-0.2) mg/dl Indirect Bilirubin 0.60 AST 111 H (15-37) U/L ALT 222 H (16-63) U/L Alkaline Phosphatase 73 (46-116) U/L Total Protein 6.4 (6.4-8.2) g/dl Albumin 2.8 L (3.4-5.0) g/dl Globulin 3.6 gm/dL Albumin/Globulin Ratio 0.8 L (1-2) Vitamin D 25-Hydroxy 60.6 (30.0-100.0) ng/ml 12/12/20 12/12/20 Range/Units 11:29 16:12 WBC (4.23-9.07) K/mm3 RBC (4.63-6.08) M/mm3 Hgb (13.7-17.5) gm/dl Hct (40.1-51.0) % MCV (79.0-92.2) fl MCH (25.7-32.2) pg MCHC (32.2-35.5) g/dl RDW Std Deviation (35.1-43.9) fL Plt Count (163-337) K/mm3 MPV (9.4-12.3) fl Neut % (Auto) (34.0-67.9) % Lymph % (Auto) (21.8-53.1) % [facility] % (Auto) (5.3-12.2) % Eos % (Auto) (0.8-7.0) Baso % (Auto) (0.1-1.2) % Neut # (Auto) (1.78-5.38) K/mm3 Lymph # (Auto) (1.32-3.57) K/mm3 [facility] # (Auto) (0.30-0.82) K/mm3 Eos # (Auto) (0.04-0.54) K/mm3 Baso # (Auto) (0.01-0.08) K/mm3 Manual Slide Review Sodium (136-145) mEq/L Potassium (3.5-5.1) mEq/L Chloride (98-107) mEq/L Carbon Dioxide (21-32) mEq/L Anion Gap (5-15) BUN (7-18) mg/dL Creatinine (0.7-1.3) mg/dL Est Cr Clr Drug Dosing mL/min Estimated GFR (MDRD) (>60) mL/min BUN/Creatinine Ratio (14-18) Glucose (70-99) mg/dL POC Glucose 173 H 232 H (70-99) mg/dL Calcium (8.5-10.1) mg/dL Total Bilirubin (0.2-1.0) mg/dL Direct Bilirubin (0.0-0.2) mg/dl Indirect Bilirubin AST (15-37) U/L ALT (16-63) U/L Alkaline Phosphatase (46-116) U/L Total Protein (6.4-8.2) g/dl Albumin (3.4-5.0) g/dl Globulin gm/dL Albumin/Globulin Ratio (1-2) Vitamin D 25-Hydroxy (30.0-100.0) ng/ml Result Diagrams: 12/12/20 05:43 12/12/20 05:43 Sepsis Event Note - Evaluation Sepsis Screening Result: No Definite Risk - Focused Exam Vital Signs: Vital Signs Temp Pulse Resp BP Pulse Ox Pulse Ox 12/12/20 16:39 96 12/12/20 15:26 36.6 C 67 20 112/88 95 12/12/20 10:55 92 L 12/12/20 10:42 36.2 C 65 18 128/85 90 L 12/12/20 08:47 65 160/86 H 12/12/20 07:42 50 L 89 L 12/12/20 07:41 37.0 C 54 L 18 160/86 H 12/12/20 04:55 66 93 L 12/12/20 04:54 36.9 C 65 22 H 156/90 H 89 L - Problem List & Annotations (1) Acute respiratory failure due to COVID-19 SNOMED Code(s): 640973427 Code(s): U07.1 - COVID-19; J96.00 - ACUTE RESPIRATORY FAILURE, UNSP W HYPOXIA OR HYPERCAPNIA Status: Acute Priority: High Current Visit: Yes Onset Date: ~12/12/20 (2) Congestive heart failure SNOMED Code(s): 48432481 Code(s): I50.9 - HEART FAILURE, UNSPECIFIED Status: Acute Priority: High Current Visit: Yes Onset Date: ~12/12/20 Qualifiers: Heart failure type: unspecified Heart failure chronicity: acute on chronic Qualified Code(s): I50.9 - Heart failure, unspecified (3) Hypokalemia SNOMED Code(s): 72860515 Code(s): E87.6 - HYPOKALEMIA Status: Acute Priority: Low Current Visit: Yes Onset Date: ~12/08/20 (4) Atrial fibrillation, chronic SNOMED Code(s): 913511158 Code(s): I48.20 - CHRONIC ATRIAL FIBRILLATION, UNSPECIFIED Status: Chronic Priority: Medium Current Visit: Yes Annotation/Comment:: resolved (5) Chronic anticoagulation SNOMED Code(s): 305420179 Code(s): Z79.01 - GUEST RELATIONS AGENT (CURRENT) USE OF ANTICOAGULANTS Status: Chronic Priority: Medium Current Visit: Yes Onset Date: ~12/12/20 - Problem List Review Problem List Initiated/Reviewed/Updated: Yes - My Orders Last 24 Hours: My Active Orders 12/13/20 05:00 D-DIMER QUANTITATIVE [COAG] Routine 12/13/20 07:00 Chest 1V Frontal [CR] Routine - Assessment Assessment:: 12/12/20 afebrile on high flow o2 and sats decreased but no prone position during overnight associate. patient anxious but better since getting up to chair. vs as recorded. denies appetite yet /feels okay but chronic persaud at rest. lungs cracles rt base and posterior. wheeze occasionally left . cor rrr 90-100 abd benign. neuro oriented and coop. mild anxiety better after just talking. skin normal lab b.s mildly elevated. assess//plan 1// covid pneumoni/ abd soft and non tender and monitor but prob acute phase elevations t.b okay boh a requiring high flow / nebs /steriods day 6. recheck labs in am a nd chest xray in am .not much progress but now day 8 since symptoms began . treating without weaning o2 per covid protocol currently 65 and fio2 55% 2// cad appears stable 3// chf appears compensated and hopefully will start to resolve. 4// renal function and uo good. 5//anxiety mild to mod. and monitoring. 6// elavated lfts without alp phos elavation boh - Plan Plan:: The patient is a 75-year-old gentleman who has been admitted as an inpatient due to acute respiratory failure from COVID-19. He also has pneumonia due to COVID-19. The patient will be started on remdesivir 200 mg initial dose followed by 100 mg for 4 days. He is also been placed on dexamethasone for the next 10 days. The patient currently has chronic atrial fibrillation and is anticoagulated with Eliquis therefore pharmacological DVT prophylaxis will not be needed. The patient will also be kept on telemetry. Also in concerned that the patient would be a fall risk and does not need SCDs. Patient also has h ypokalemia and his electrolytes have been replaced. I have ordered repeat laboratory studies for the morning. PT OT will be ordered due to the patient's chronic pain and weakness. Regular heart healthy diet has been ordered for the patient. He has been encouraged to ambulate as he can. His home medications will be restarted once verified. The patient should be appropriate for discharge in 4 to 5 days depending upon his oxygen requirements and medication completion. Due to the patient's age and weakness group home facility may be needed. Assessment 75M presenting with Acute hypoxic respiratory failure secondary to COVID 19 PNA; has not been vaccinated unfortunately 1. Acute hypoxic Respiratory failure secondary to COVID 19 PNA 2. Hx of CAD/3v CABG/CHF 3. Chest pain 4. Hx of Atrial Fibrillation on eliquis 5. Hypokalemia 6. hx of Depression 7. Steroid induced hyperglycemia 8. Hypertension -CT PE study negative for PE -prn morphine/ntg -EKG-completed -Echo pending -continue tele -electrolyte replacement -RT following -discontinued IVF from admission -continue steroids -completed remdesivir infusion -completed actemra on 12/09 -continue lantus and SSI humalog -follow LFTs/renal function/RUQ US in AM 12/12 -start HCTZ 12/11; holding BB due to bradycardia -check CXR and VBG today Code Status-Full code DVT ppx-eliquis Anticipated LOS 2-3 days stable oxygen requirements 12/12/20 afebrile on high flow o2 and sats decreased but no prone position during overnight associate. patient anxious but better since getting up to chair. vs as recorded. denies appetite yet /feels okay but chronic persaud at rest. lungs cracles rt base and posterior. wheeze occasionally left . cor rrr 90-100 abd benign. neuro oriented and coop. mild anxiety better after just talking. skin normal lab b.s mildly elevated. assess//plan 1// covid pneumoni/ abd soft and non tender and monitor but prob acute phase elevations t.b okay boh a requiring high flow / nebs /steriods day 6. recheck labs in am a nd chest xray in am .not much progress but now day 8 since symptoms began . treating without weaning o2 per covid protocol currently 65 and fio2 55% 2// cad appears stable/// restarted metoprolol and cardizem today and heart rate decreasing/ b.p decreasing. 3// chf appears compensated and hopefully will start to resolve. 4// renal function and uo good. 5//anxiety mild to mod. and monitoring. 6// elavated lfts without alp phos elavatio
[2020-12-12] MEDS: Insulin Glarg,Human.Rec.Analog 100 Unit/ML SUBCUT SCH (17:44)
[2020-12-13] MEDS: HYDROmorphone 2 MG Tab PO SCH ×4 (04:31→22:01)
[2020-12-13] MEDS: Insulin Lispro 100 UNIT/ML 10 ML Vial SUBCUT SCH ×4 (07:41→22:00)
[2020-12-13] MEDS: Aspirin 81 MG Tab.Chew PO SCH (09:19)
[2020-12-13] MEDS: Diltiazem 120 MG Cap.CD PO SCH (09:19)
[2020-12-13] MEDS: Metoprolol Succinate 50 MG Tab.ER PO SCH (09:20)
[2020-12-13] MEDS: Sertraline 50 MG Tab PO SCH (09:20)
[2020-12-13] MEDS: Apixaban 5 MG Tab PO SCH ×2 (09:20→20:38)
[2020-12-13] MEDS: Dexamethasone 4 MG Tab PO SCH (09:20)
[2020-12-13] MEDS: Hydrochlorothiazide 12.5 MG Cap PO SCH (09:20)
[2020-12-13] MEDS: Cholecalciferol (Vitamin D3) 5,000 UNIT Cap PO SCH (09:21)
[2020-12-13] MEDS: Allopurinol 300 MG Tab PO SCH (09:21)
[2020-12-13] MEDS: Potassium Chloride 20 MEQ Tab.ER PO SCH ×3 (09:21→20:38)
[2020-12-13] MEDS: Pantoprazole 40 MG Tab.CR PO SCH (09:21)
[2020-12-13] MEDS: Torsemide 20 MG Tab PO SCH (09:21)
--- NOTE | 2020-12-13 10:19 | CR ---
Chest: Portable view of the chest was obtained. Comparison: Prior chest x-ray of 12/11/20. Increased density is seen on both sides of the lung worse within the mid and lower regions. These findings have increased in prominence from prior study compatible with worsening COVID pneumonia. Heart size is slightly enlarged. Sternotomy is noted. Bony structures show nothing acute. Impression: 1. Worsening areas of COVID pneumonia within both lungs as described above. Diagnostic code #3
[2020-12-13] MEDS ORDERED: LORazepam 2 MG/ML SDV ONE (14:17)
[2020-12-13] MEDS: LORazepam 2 MG/ML SDV IVPUSH PRN ×2 (14:18→19:04)
--- NOTE | 2020-12-13 17:01 | PCM.PN ---
- General Info Date of Service: 12/13/20 Admission Dx/Problem (Free Text): Brian LIVE Admission History & Physical Patient Name: CRYSTAL HAMILTON Date of : 1945 Patient Status: Inpatient Attending Provider: Ludwig Delgadillo Date: 12/07/20 06:43 Initialization Date: 12/07/20 06:43 H&P History of Present Illness - General Date of Service: 12/07/20 Admit Problem/Dx: Admission Diagnosis/Problem Admission Diagnosis/Problem Hypoxia Source of Information: Patient, EMS Notes Reviewed, Old Records History Limitations: Reports: No Limitations - History of Present Illness Initial Comments - Free Text/Narative: The patient is a 75-year-old gentleman who had presented to the emergency dep artment complaining of fever chills body aches low energy and dyspnea. Patient had presented to his clinic and his outpatient physician referred him directly to the emergency department with oxygen saturations reportedly in the low 80s. The patient has been in contact with his children who are COVID-19 positive. The patient says that he has a cough associated with this nonproductive. He also has been complaining of weakness and fatigue. Patient also has been taking high dose of hydromorphone at home due to his osteoarthritis and spinal pain. This has been chronic. The patient is somewhat of a poor historian. Onset of Symptoms: Reports: Gradual Duration of Symptoms: Reports: Day(s): Location: Reports: Generalized Severity: Moderate Improves with: Reports: Rest Worsens with: Reports: Movement Context: Reports: Sick Contact (Children positive for COVID-19.) Associated Symptoms: Reports: Diaphoresis, Nausea/Vomiting - Related Data Allergies/Adverse Reactions: Allergies Allergy/AdvReac Type Severity Reaction Status Date / Time atorvastatin [From Lipitor] Allergy Muscle Verified 12/06/20 17:46 Aches oxycodone Allergy Cannot Verified 12/06/20 17:46 Remember Home Medications: Home Meds Aspirin [[place] Aspirin] 81 mg PO DAILY 07/24/18 [History] Cholecalciferol (Vitamin D3) [Vitamin D3] 5,000 unit PO DAILY 07/24/18 [History] HYDROmorphone [Dilaudid] 4 mg PO Q6H PRN 07/24/18 [History] Metoprolol Succinate [Toprol XL 50mg] 50 mg PO DAILY 07/24/18 [History] Multivitamin [Multivitamins] 1 each PO DAILY 07/24/18 [History] Nitroglycerin [Nitrostat] 0.4 mg SL ASDIRECTED PRN 07/24/18 [History] Rosuvastatin [Crestor] 5 mg PO DAILY 07/24/18 [History] Sertraline [Zoloft] 50 mg PO DAILY 10/08/18 [History] Apixaban [Eliquis] 5 mg PO BID 10/29/19 [History] Potassium Chloride [Klor-Con M10] 10 meq PO DAILY 10/29/19 [History] Torsemide [Demadex] 40 mg PO DAILY 10/29/19 [History] amLODIPine [Norvasc] 2.5 mg PO DAILY 07/29/20 [History] dilTIAZem HCL [Diltiazem 24Hr ER] 1 cap PO QAM #14 cap.er.24h 07/29/20 [Rx] Past Medical History HEENT History: Reports: Hard of Hearing, Impaired Vision Other HEENT History: uses hearing aid Cardiovascular History: Reports: Afib, Arrhythmia, Bypass, Heart Failure, High Cholesterol, Hypertension, CA, SOB on Exertion Respiratory History: Reports: COPD Gastrointestinal History: Reports: None Genitourinary History: Reports: BPH Musculoskeletal History: Reports: Back Pain, Chronic, Gout, Osteoarthritis Psychiatric History: Reports: Anxiety, Depression Endocrine/Metabolic History: Reports: Obesity/BMI 30+ Hematologic History: Reports: None Immunologic History: Reports: None Oncologic (Cancer) History: Reports: None - Infectious Disease History Infectious Disease History: Reports: Chicken Pox, Measles, Mumps, Novel Coronavirus - Past Surgical History Head Surgeries/Procedures: Reports: None Cardiovascular Surgical History: Reports: Coronary Artery Bypass, Other (See Below) Other Cardiovascular Surgeries/Procedures: venous implant/ filter Respiratory Surgical History: Reports: None GI Surgical History: Reports: Cholecystectomy, Colonoscopy, EGD Male Surgical History: Reports: None Endocrine Surgical History: Reports: None Musculoskeletal Surgical History: Reports: Arthroscopic Knee, Knee Replacement Social & Family History - Family History Family Medical History: No Pertinent Family History - Tobacco Use Tobacco Use Status *Q: Never Tobacco User Second Hand Smoke Exposure: No - Caffeine Use Caffeine Use: Reports: None - Recreational Drug Use Recreational Drug Use: No - Living Situation & Occupation Living situation: Reports: , with Spouse Occupation: Retired H&P Review of Systems - Review of Systems: Review Of Systems: See Below General: Reports: Chills, Weakness, Fatigue HEENT: Reports: Other (Hard of hearing) Pulmonary: Reports: Shortness of Breath, Cough. Denies: Sputum, Hemoptysis Cardiovascular: Reports: No Symptoms Gastrointestinal: Reports: Nausea Genitourinary: Reports: No Symptoms Musculoskeletal: Reports: Shoulder Pain, Back Pain (Chronic), Leg Pain Skin: Reports: No Symptoms Psychiatric: Reports: No Symptoms Neurological: Reports: No Symptoms Hematologic/Lymphatic: Reports: No Symptoms Immunologic: Reports: No Symptoms Exam - Exam Exam: See Below - Vital Signs Vital Signs: Last Vital Signs Temp 37.0 C 12/07/20 04:31 Pulse 71 12/07/20 04:31 Resp 22 H 12/07/20 04:31 BP 137/77 12/07/20 04:31 Pulse Ox 95 12/07/20 06:21 Weight: 127.233 kg - Exam Quality Assessment: Supplemental Oxygen, DVT Prophylaxis General: Alert, Oriented, Cooperative HEENT: Conjunctiva Clear, EACs Clear, EOMI, Mucosa Moist & [place], PERRLA. No: Hearing Intact (Uses one hearing aid) Neck: Supple, Trachea Midline Lungs: Decreased Breath Sounds, Rales (Widespread) Cardiovascular: Regular Rate, Normal S1, Normal S2, Irregular Rhythm GI/Abdominal Exam: Normal Bowel Sounds, Soft, Non-Tender, No Distention. No: Guarding, Rigid, Rebound (Male) Exam: Deferred Rectal (Males) Exam: Deferred Back Exam: Normal Inspection (Appropriate for age), Full Range of Motion (Appropriate for age) Extremities: Normal Inspection, No Pedal Edema Skin: Warm, Intact, Moist (Diaphoretic) Neurological: Cranial Nerves Intact. No: Strength Equal Bilateral (Global weakness) Neuro Extensive - Motor, Sensory, Reflexes: CN II-XII Intact Psychiatric: Alert, Normal Affect, Normal Mood - Patient Data Lab Results Last 24 hrs: Laboratory Results - last 24 hr 12/06/20 12/06/20 12/06/20 Range/Units 18:08 18:15 18:45 WBC (4.23-9.07) K/mm3 RBC (4.63-6.08) M/mm3 Hgb (13.7-17.5) gm/dl Hct (40.1-51.0) % MCV (79.0-92.2) fl MCH (25.7-32.2) pg MCHC (32.2-35.5) g/dl RDW Std Deviation (35.1-43.9) fL Plt Count (163-337) K/mm3 MPV (9.4-12.3) fl Neut % (Auto) (34.0-67.9) % Lymph % (Auto) (21.8-53.1) % [place] % (Auto) (5.3-12.2) % Eos % (Auto) (0.8-7.0) Baso % (Auto) (0.1-1.2) % Neut # (Auto) (1.78-5.38) K/mm3 Lymph # (Auto) (1.32-3.57) K/mm3 [place] # (Auto) (0.30-0.82) K/mm3 Eos # (Auto) (0.04-0.54) K/mm3 Baso # (Auto) (0.01-0.08) K/mm3 D-Dimer, Quantitative (0.19-0.50) mg/L Puncture Site Lt radial ABG pH 7.48 H (7.35-7.45) ABG pCO2 31.0 L (35.0-45.0) mmHg ABG pO2 47.0 L (80.0-100.0) mmHg ABG HCO3 22.6 (22.0-26.0) meq/L ABG O2 Saturation 84.9 L (96.0-97.0) % ABG Base Excess 0.3 (-2-2.0) Dmitri Test Positive O2 Delivery Device Room air Oxygen Flow Rate 0.0 Sodium (136-145) mEq/L Potassium (3.5-5.1) mEq/L Chloride (98-107) mEq/L Carbon Dioxide (21-32) mEq/L Anion Gap (5-15) BUN (7-18) mg/dL Creatinine (0.7-1.3) mg/dL Est Cr Clr Drug Dosing mL/min Estimated GFR (MDRD) (>60) mL/min BUN/Creatinine Ratio (14-18) Glucose (70-99) mg/dL Calcium (8.5-10.1) mg/dL Ferritin (26-388) ng/ml Total Bilirubin (0.2-1.0) mg/dL AST (15-37) U/L ALT (16-63) U/L Alkaline Phosphatase (46-116) U/L Lactate Dehydrogenase (85-227) U/L C-Reactive Protein 14.0 H* (<1.0) mg/dL NT-Pro-B Natriuret Pep (0-125) pg/mL Total Protein (6.4-8.2) g/dl Albumin (3.4-5.0) g/dl Globulin gm/dL Albumin/Globulin Ratio (1-2) SARS-CoV-2 RNA (JAKE) Positive H (NEGATIVE) 12/06/20 12/06/20 12/06/20 Range/Units 18:45 18:45 18:45 WBC 6.99 (4.23-9.07) K/mm3 RBC 5.14 (4.63-6.08) M/mm3 Hgb 13.8 (13.7-17.5) gm/dl Hct 42.7 (40.1-51.0) % MCV 83.1 (79.0-92.2) fl MCH 26.8 (25.7-32.2) pg MCHC 32.3 (32.2-35.5) g/dl RDW Std Deviation 48.9 H (35.1-43.9) fL Plt Count 175 (163-337) K/mm3 MPV 10.8 (9.4-12.3) fl Neut % (Auto) 81.1 H (34.0-67.9) % Lymph % (Auto) 10.2 L (21.8-53.1) % [place] % (Auto) 8.7 (5.3-12.2) % Eos % (Auto) 0 L (0.8-7.0) Baso % (Auto) 0.0 L (0.1-1.2) % Neut # (Auto) 5.67 H (1.78-5.38) K/mm3 Lymph # (Auto) 0.71 L (1.32-3.57) K/mm3 [place] # (Auto) 0.61 (0.30-0.82) K/mm3 Eos # (Auto) 0.00 L (0.04-0.54) K/mm3 Baso # (Auto) 0.00 L (0.01-0.08) K/mm3 D-Dimer, Quantitative 0.79 H (0.19-0.50) mg/L Puncture Site ABG pH (7.35-7.45) ABG pCO2 (35.0-45.0) mmHg ABG pO2 (80.0-100.0) mmHg ABG HCO3 (22.0-26.0) meq/L ABG O2 Saturation (96.0-97.0) % ABG Base Excess (-2-2.0) Dmitri Test O2 Delivery Device Oxygen Flow Rate Sodium 137 (136-145) mEq/L Potassium 3.0 L (3.5-5.1) mEq/L Chloride 100 (98-107) mEq/L Carbon Dioxide 24 (21-32) mEq/L Anion Gap 16.0 H (5-15) BUN 12 (7-18) mg/dL Creatinine 1.3 (0.7-1.3) mg/dL Est Cr Clr Drug Dosing 51.47 mL/min Estimated GFR (MDRD) 54 (>60) mL/min BUN/Creatinine Ratio 9.2 L (14-18) Glucose 148 H (70-99) mg/dL Calcium 8.2 L (8.5-10.1) mg/dL Ferritin (26-388) ng/ml Total Bilirubin 0.4 (0.2-1.0) mg/dL AST 41 H (15-37) U/L ALT 27 (16-63) U/L Alkaline Phosphatase 64 (46-116) U/L Lactate Dehydrogenase 264 H (85-227) U/L C-Reactive Protein (<1.0) mg/dL NT-Pro-B Natriuret Pep (0-125) pg/mL Total Protein 7.2 (6.4-8.2) g/dl Albumin 3.2 L (3.4-5.0) g/dl Globulin 4.0 gm/dL Albumin/Globulin Ratio 0.8 L (1-2) SARS-CoV-2 RNA (JAKE) (NEGATIVE) 12/06/20 12/06/20 12/07/20 Range/Units 18:45 18:45 05:55 WBC 4.70 (4.23-9.07) K/mm3 RBC 4.91 (4.63-6.08) M/mm3 Hgb 13.2 L (13.7-17.5) gm/dl Hct 41.0 (40.1-51.0) % MCV 83.5 (79.0-92.2) fl MCH 26.9 (25.7-32.2) pg MCHC 32.2 (32.2-35.5) g/dl RDW Std Deviation 48.6 H (35.1-43.9) fL Plt Count 169 (163-337) K/mm3 MPV 10.7 (9.4-12.3) fl Neut % (Auto) (34.0-67.9) % Lymph % (Auto) (21.8-53.1) % [place] % (Auto) (5.3-12.2) % Eos % (Auto) (0.8-7.0) Baso % (Auto) (0.1-1.2) % Neut # (Auto) (1.78-5.38) K/mm3 Lymph # (Auto) (1.32-3.57) K/mm3 [place] # (Auto) (0.30-0.82) K/mm3 Eos # (Auto) (0.04-0.54) K/mm3 Baso # (Auto) (0.01-0.08) K/mm3 D-Dimer, Quantitative (0.19-0.50) mg/L Puncture Site ABG pH (7.35-7.45) ABG pCO2 (35.0-45.0) mmHg ABG pO2 (80.0-100.0) mmHg ABG HCO3 (22.0-26.0) meq/L ABG O2 Saturation (96.0-97.0) % ABG Base Excess (-2-2.0) Dmitri Test O2 Delivery Device Oxygen Flow Rate Sodium (136-145) mEq/L Potassium (3.5-5.1) mEq/L Chloride (98-107) mEq/L Carbon Dioxide (21-32) mEq/L Anion Gap (5-15) BUN (7-18) mg/dL Creatinine (0.7-1.3) mg/dL Est Cr Clr Drug Dosing mL/min Estimated GFR (MDRD) (>60) mL/min BUN/Creatinine Ratio (14-18) Glucose (70-99) mg/dL Calcium (8.5-10.1) mg/dL Ferritin 214 (26-388) ng/ml Total Bilirubin (0.2-1.0) mg/dL AST (15-37) U/L ALT (16-63) U/L Alkaline Phosphatase (46-116) U/L Lactate Dehydrogenase (85-227) U/L C-Reactive Protein (<1.0) mg/dL NT-Pro-B Natriuret Pep 413 H (0-125) pg/mL Total Protein (6.4-8.2) g/dl Albumin (3.4-5.0) g/dl Globulin gm/dL Albumin/Globulin Ratio (1-2) SARS-CoV-2 RNA (JAKE) (NEGATIVE) Result Diagrams: 12/07/20 05:55 12/07/20 05:55 Sepsis Event Note - Evaluation Sepsis Screening Result: Sepsis Risk Current Stage of Sepsis: Ruled Out Reason for Ruling Out Sepsis: Normal white blood cell count, no fever, COVID-19 positive test (U07.1, COVID-19) with Acute Pneumonia (J12.89, Other viral pneumonia) (If respiratory failure or sepsis present, add as separate assessment) Normotensive, no tachycardia - Focused Exam Vital Signs: Vital Signs Temp Pulse Pulse Resp BP BP Pulse Ox 12/07/20 06:21 12/07/20 04:31 37.0 C 71 22 H 137/77 91 L 12/07/20 01:03 36.8 C 73 22 H 144/95 H 91 L 12/06/20 20:19 80 18 150/89 H 94 L 12/06/20 20:17 36.7 C 95 16 156/92 H 94 L Pulse Ox 12/07/20 06:21 95 12/07/20 04:31 12/07/20 01:03 12/06/20 20:19 12/06/20 20:17 - Problem List (1) Acute respiratory failure due to COVID-19 SNOMED Code(s): 996670838 ICD Code: U07.1 - COVID-19; J96.00 - ACUTE RESPIRATORY FAILURE, UNSP W HYPOXIA OR HYPERCAPNIA Status: Acute Priority: High Current Visit: Yes (2) Pneumonia due to COVID-19 virus SNOMED Code(s): 210590589726667967 ICD Code: U07.1 - COVID-19; J12.82 - PNEUMONIA DUE TO CORONAVIRUS DISEASE 2 019 Status: Acute Priority: High Current Visit: Yes (3) Atrial fibrillation, chronic SNOMED Code(s): 480724077 ICD Code: I48.20 - CHRONIC ATRIAL FIBRILLATION, UNSPECIFIED Status: Chronic Priority: Medium Current Visit: Yes (4) Chronic anticoagulation SNOMED Code(s): 188574787 ICD Code: Z79.01 - SERVER (CURRENT) USE OF ANTICOAGULANTS Status: Chronic Priority: Medium Current Visit: Yes (5) Hypokalemia SNOMED Code(s): 92840911 ICD Code: E87.6 - HYPOKALEMIA Status: Acute Priority: High Current Visit: Yes Problem List Initiated/Reviewed/Updated: Yes Orders Last 24hrs: Active Orders 24 hr Category Date Time Status Admission Status [Patient Status] [ADT] Routine ADT 12/06/20 19:33 Active Patient Status [ADT] Routine ADT 12/06/20 20:21 Active Oxygen Therapy Adult [Oxygen Therapy] [RC] ASDIRECTED Care 12/06/20 20:15 Active Up With Assistance [RC] BID Care 12/06/20 22:33 Active Heart Healthy Diet [DIET] Diet 12/07/20 Breakfast Active COMPREHENSIVE METABOLIC PN,CMP [CHEM] Routine Lab 12/07/20 05:55 Received CRP [C-REACTIVE PROTEIN] [CHEM] Routine Lab 12/07/20 05:55 Received MAGNESIUM [CHEM] Routine Lab 12/07/20 05:55 Received Acetaminophen [TylenoL] Med 12/06/20 23:37 Active 650 mg PO Q4H PRN Sodium Chloride 0.9% [Normal Saline] 1,000 ml Med 12/06/20 20:15 Active IV ASDIRECTED Sodium Chloride 0.9% [Saline Flush] Med 12/06/20 18:00 Active 10 ml FLUSH ASDIRECTED PRN dexAMETHasone Med 12/06/20 20:30 Active 6 mg PO DAILY Isolation [COMM] Routine Oth 12/06/20 20:14 Ordered Peripheral IV Insertion Adult [OM.PC] Stat Oth 12/06/20 18:00 Ordered Pulse Oximetry Continuous Monitoring [OM.PC] Routine Oth 12/06/20 21:30 Active Code Status [Resuscitation Status] Routine Resus Stat 12/06/20 20:13 Ordered Medication Orders Acetaminophen (Acetaminophen 325 Mg Tab) 650 mg PO Q4H PRN PRN Reason: Pain (moderate 4-6) Last Admin: 12/07/20 00:59 Dose: 650 mg Documented by: ABE Dexamethasone (Dexamethasone 4 Mg Tab) 6 mg PO DAILY [facility] Last Admin: 12/06/20 22:17 Dose: Not Given Documented by: Admin: 12/06/20 22:08 Dose: 6 mg Documented by: NADINE Sodium Chloride (Normal Saline) 1,000 mls @ 100 mls/hr IV ASDIRECTED [facility] Last Admin: 12/06/20 22:07 Dose: 100 mls/hr Documented by: NADINE Sodium Chloride (Sodium Chloride 0.9% 10 Ml Syringe) 10 ml FLUSH ASDIRECTED PRN PRN Reason: Keep Vein Open Last Admin: 12/06/20 18:28 Dose: 10 ml Documented by: CARA Assessment/Plan Comment:: The patient is a 75-year-old gentleman who has been admitted as an inpatient due to acute respiratory failure from COVID-19. He also has pneumonia due to COVID- 19. The patient will be started on remdesivir 200 mg initial dose followed by 100 mg for 4 days. He is also been placed on dexamethasone for the next 10 days. The patient currently has chronic atrial fibrillation and is anticoagulated with Eliquis therefore pharmacological DVT prophylaxis will not be needed. The patient will also be kept on telemetry. Also in concerned that the patient would be a fall risk and does not need SCDs. Patient also has hypokalemia and his electrolytes have been replaced. I have ordered repeat laboratory studies for the morning. PT OT will be ordered due to the patient's chronic pain and weakness. Regular heart healthy diet has been ordered for the patient. He has been encouraged to ambulate as he can. His home medications will be restarted once verified. The patient should be appropriate for discharge in 4 to 5 days depending upon his oxygen requirements and medication completion. Due to the patient's age and weakness fci facility may be needed. - Mortality Measure Prognosis:: Good Subjective Update: 12/12/20 afebrile on high flow o2 and sats decreased but no prone position during semiconductor bonder. patient anxious but better since getting up to chair. vs as recorded. denies appetite yet /feels okay but chronic persaud at rest. lungs cracles rt base and posterior. wheeze occasionally left . cor rrr 90-100 abd benign. neuro oriented and coop. mild anxiety better after just talking. skin normal lab b.s mildly elevated. assess//plan 1// covid pneumoni/ abd soft and non tender and monitor but prob acute phase elevations t.b okay boh a requiring high flow / nebs /steriods day 6. recheck labs in am a nd chest xray in am .not much progress but now day 8 since symptoms began . treating without weaning o2 per covid protocol currently 65 and fio2 55% 2// cad appears stable 3// chf appears compensated and hopefully will start to resolve. 4// renal function and uo good. 5//anxiety mild to mod. and monitoring. 6// elevated lfts without alp phos elavation boh 12/13/20 afebrile vss i/os good. ate yest x 2 small portions resp: resp decreased tachypnea,decreased distress on high flow 65/55 and prone 2 hours on /off. xray little change moderate infiltrates,increased vasc. cor: afib rate controlled 70-92 abd benign neuro aox 4,more interactive and mild confusion that flucuates. covid s/p rems and per protocol done, on steriods day 7 with symptoms days 9. 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 vibra likely and pulm and cardiac risk factors place him at high risk along with age and other medical conditions . overall prognosis for survival looking better with improvements seen today . recheck labs and chest xray and cont to wean as tolerated. boh Functional Status: Reports: Pain Controlled - Review of Systems General: Reports: Fever, Weakness, Fatigue, Malaise, Chills, Appetite HEENT: Reports: No Symptoms Pulmonary: Reports: Shortness of Breath, Wheezing Cardiovascular: Reports: Dyspnea on Exertion, PND, Edema Gastrointestinal: Reports: No Symptoms Genitourinary: Reports: No Symptoms Musculoskeletal: Reports: No Symptoms, Shoulder Pain, Back Pain Skin: Reports: No Symptoms Neurological: Reports: Confusion, Dizziness, Weakness Psychiatric: Reports: Confusion - Patient Data Vitals - Most Recent: Last Vital Signs Temp 36.6 C 12/13/20 15:50 Pulse 95 12/13/20 15:50 Resp 18 12/13/20 15:50 BP 111/61 12/13/20 15:50 Pulse Ox 89 L 12/13/20 16:40 Weight - Most Recent: 128.548 kg I&O - Last 24 Hours: Intake & Output 12/13/20 12/13/20 12/13/20 06:59 14:59 22:59 Intake Total 400 400 Output Total 500 550 Balance -100 -150 Lab Results Last 24 Hours: Laboratory Results - last 24 hr 12/12/20 12/13/20 12/13/20 Range/Units 21:00 05:11 06:30 D-Dimer, Quantitative (0.19-0.50) mg/L Sodium 143 (136-145) mEq/L Potassium 4.3 (3.5-5.1) mEq/L Chloride 105 (98-107) mEq/L Carbon Dioxide 26 (21-32) mEq/L Anion Gap 16.3 H (5-15) BUN 28 H (7-18) mg/dL Creatinine 1.1 (0.7-1.3) mg/dL Est Cr Clr Drug Dosing 60.83 mL/min Estimated GFR (MDRD) > 60 (>60) mL/min BUN/Creatinine Ratio 25.5 H (14-18) Glucose 125 H (70-99) mg/dL POC Glucose 154 H 126 H (70-99) mg/dL Calcium 9.0 (8.5-10.1) mg/dL Magnesium 2.5 H (1.8-2.4) mg/dL Total Bilirubin 1.1 H (0.2-1.0) mg/dL AST 57 H (15-37) U/L ALT 175 H (16-63) U/L Alkaline Phosphatase 83 (46-116) U/L C-Reactive Protein < 0.2 (<1.0) mg/dL Total Protein 7.2 (6.4-8.2) g/dl Albumin 3.3 L (3.4-5.0) g/dl Globulin 3.9 gm/dL Albumin/Globulin Ratio 0.9 L (1-2) 12/13/20 12/13/20 Range/Units 06:53 11:02 D-Dimer, Quantitative 1.04 H (0.19-0.50) mg/L Sodium (136-145) mEq/L Potassium (3.5-5.1) mEq/L Chloride (98-107) mEq/L Carbon Dioxide (21-32) mEq/L Anion Gap (5-15) BUN (7-18) mg/dL Creatinine (0.7-1.3) mg/dL Est Cr Clr Drug Dosing mL/min Estimated GFR (MDRD) (>60) mL/min BUN/Creatinine Ratio (14-18) Glucose (70-99) mg/dL POC Glucose 129 H (70-99) mg/dL Calcium (8.5-10.1) mg/dL Magnesium (1.8-2.4) mg/dL Total Bilirubin (0.2-1.0) mg/dL AST (15-37) U/L ALT (16-63) U/L Alkaline Phosphatase (46-116) U/L C-Reactive Protein (<1.0) mg/dL Total Protein (6.4-8.2) g/dl Albumin (3.4-5.0) g/dl Globulin gm/dL Albumin/Globulin Ratio (1-2) Med Orders - Current: Current Medications Acetaminophen (Acetaminophen 325 Mg Tab) 650 mg PO Q4H PRN PRN Reason: Pain (moderate 4-6) Last Admin: 12/11/20 00:30 Dose: 650 mg Documented by: Albuterol (Albuterol 6.7 Gm Inhaler) 0 gm INH Q4H PRN PRN Reason: sob/wheezing Last Admin: 12/11/20 01:05 Dose: 2 puff Documented by: Albuterol/Ipratropium (Albuterol/Ipratropium 3.0-0.5 Mg/3 Ml Neb Soln) 3 ml NEB Q4H PRN PRN Reason: Shortness Of Breath/wheezing Last Admin: 12/11/20 08:36 Dose: 3 ml Documented by: Allopurinol (Allopurinol 300 Mg Tab) 300 mg PO DAILY [facility] Last Admin: 12/13/20 09:21 Dose: 300 mg Documented by: Apixaban (Apixaban 5 Mg Tab) 5 mg PO BID [facility] Last Admin: 12/13/20 09:20 Dose: 5 mg Documented by: Artificial Tears (Carboxymethylcellulose Sodium 1% Ophth Gel 15 Ml Bottle) 1 ml EYEBOTH TID PRN PRN Reason: Dry Eyes Last Admin: 12/10/20 08:07 Dose: 1 drop Documented by: Aspirin (Aspirin 81 Mg Tab.Chew) 81 mg PO DAILY [facility] Last Admin: 12/13/20 09:19 Dose: 81 mg Documented by: Benzocaine/Menthol (Benzocaine/Cetylpyridinium/Menthol Lozenge) 1 lozenge MUCMEM Q2H PRN PRN Reason: Sore Throat Last Admin: 12/11/20 00:30 Dose: 1 lozenge Documented by: Bisacodyl (Bisacodyl 10 Mg Supp) 10 mg RECTAL DAILY PRN PRN Reason: Constipation Last Admin: 12/09/20 12:22 Dose: 10 mg Documented by: Cholecalciferol (Cholecalciferol (Vitamin D3) 5,000 Unit Cap) 5,000 unit PO DAILY [facility] Last Admin: 12/13/20 09:21 Dose: 5,000 unit Documented by: Dexamethasone (Dexamethasone 4 Mg Tab) 6 mg PO DAILY [facility] Last Admin: 12/13/20 09:20 Dose: 6 mg Documented by: Diltiazem HCl (Diltiazem 120 Mg Cap.Cd) 120 mg PO DAILY [facility] Last Admin: 12/13/20 09:19 Dose: 120 mg Documented by: Hydralazine HCl (Hydralazine 20 Mg/Ml Sdv) 10 mg IVPUSH Q8H PRN PRN Reason: Other Hydrochlorothiazide (Hydrochlorothiazide 12.5 Mg Cap) 12.5 mg PO DAILY [facility] Last Admin: 12/13/20 09:20 Dose: 12.5 mg Documented by: Hydromorphone HCl (Hydromorphone 2 Mg Tab) 4 mg PO Q6H [facility] Last Admin: 12/13/20 10:54 Dose: 4 mg Documented by: Insulin Glargine (Insulin Glarg,Human.Rec.Analog 100 Unit/Ml) 4 unit SUBCUT 1800 [facility] Last Admin: 12/12/20 17:44 Dose: 4 units Documented by: Insulin Human Lispro (Insulin Lispro 100 Unit/Ml 10 Ml Vial) 0 unit SUBCUT QIDACANDBED [facility]; Protocol Last Admin: 12/13/20 11:20 Dose: Not Given Documented by: Lorazepam (Lorazepam 2 Mg/Ml Sdv) 0.5 mg IVPUSH Q2H PRN PRN Reason: Anxiety Last Admin: 12/13/20 14:18 Dose: 0.5 mg Documented by: Metoprolol Succinate (Metoprolol Succinate 50 Mg Tab.Er) 50 mg PO DAILY [facility] Last Admin: 12/13/20 09:20 Dose: 50 mg Documented by: Morphine Sulfate (Morphine 2 Mg/Ml Syringe) 2 mg IVPUSH Q1H PRN PRN Reason: chest pain Last Admin: 12/10/20 18:13 Dose: 2 mg Documented by: Nitroglycerin (Nitroglycerin 0.4 Mg Tab.Sl) 0.4 mg SL Q5M PRN PRN Reason: Chest Pain Ondansetron HCl (Ondansetron 4 Mg Tab.Dis) 4 mg PO Q4H PRN PRN Reason: nausea, able to take PO Last Admin: 12/08/20 09:57 Dose: 4 mg Documented by: Pantoprazole Sodium (Pantoprazole 40 Mg Tab.Cr) 40 mg PO DAILY [facility] Last Admin: 12/13/20 09:21 Dose: 40 mg Documented by: Potassium Chloride (Potassium Chloride 20 Meq Tab.Er) 20 meq PO TID [facility] Last Admin: 12/13/20 15:46 Dose: 20 meq Documented by: Sertraline HCl (Sertraline 50 Mg Tab) 50 mg PO DAILY [facility] Last Admin: 12/13/20 09:20 Dose: 50 mg Documented by: Sodium Chloride (Sodium Chloride 0.9% 10 Ml Syringe) 10 ml FLUSH ASDIRECTED PRN PRN Reason: Keep Vein Open Last Admin: 12/06/20 18:28 Dose: 10 ml Documented by: Temazepam (Temazepam 15 Mg Cap) 15 mg PO BEDTIME PRN PRN Reason: Sleep Torsemide (Torsemide 20 Mg Tab) 20 mg PO DAILY [facility] Last Admin: 12/13/20 09:21 Dose: 20 mg Documented by: Discontinued Medications Diltiazem HCl (Diltiazem 120 Mg Cap.Cd) 120 mg PO ONETIME ONE Stop: 12/10/20 17:33 Last Admin: 12/10/20 17:44 Dose: 120 mg Documented by: Sodium Chloride (Normal Saline) 1,000 mls @ 100 mls/hr IV ASDIRECTED [facility] Last Admin: 12/08/20 03:32 Dose: 100 mls/hr Documented by: Remdesivir 200 mg/ Sodium (Chloride) 250 mls @ 250 mls/hr IV ONETIME ONE Stop: 12/06/20 20:21 Last Admin: 12/06/20 22:06 Dose: 250 mls/hr Documented by: Potassium Chloride 10 meq/ (Premix) 100 mls @ 100 mls/hr IV Q1H ADRIANA Stop: 12/07/20 09:44 Last Admin: 12/07/20 10:10 Dose: 100 mls/hr Documented by: Remdesivir 100 mg/ Sodium (Chloride) 100 mls @ 100 mls/hr IV Q24H ADRIANA Stop: 12/10/20 22:59 Last Admin: 12/10/20 21:27 Dose: 100 mls/hr Documented by: Sodium Chloride (Normal Saline) 100 mls @ 75 mls/hr IV ASDIRECTED [facility] Stop: 12/08/20 12:00 Tocilizumab 800 mg/ Sodium (Chloride) 100 mls @ 100 mls/hr IV ONETIME ONE Stop: 12/09/20 12:01 Last Admin: 12/09/20 12:21 Dose: 100 mls/hr Documented by: Iopamidol (Iopamidol 755 Mg/Ml 100 Ml Bottle) 100 ml IVPUSH ONETIME ONE Stop: 12/08/20 08:53 Last Admin: 12/08/20 10:18 Dose: 100 ml Documented by: Lorazepam (Lorazepam 2 Mg/Ml Sdv) Confirm Administered Dose 2 mg .ROUTE .STK-MED ONE Stop: 12/13/20 14:18 Last Admin: 12/13/20 14:43 Dose: Not Given Documented by: Sodium Chloride (Sodium Chloride 0.9% 10 Ml Syringe) 10 ml FLUSH ONETIME PRN PRN Reason: IV FLUSH Stop: 12/08/20 12:00 Last Admin: 12/08/20 10:18 Dose: 10 ml Documented by: - Exam Quality Assessment: Supplemental Oxygen General: Cooperative, Moderate Distress HEENT: Pupils Equal, Pupils Reactive, EOMI, Mucous Membr. Moist/[place] Neck: Supple Lungs: Clear to Auscultation, Decreased Breath Sounds, Crackles, Rales, Wheezing Cardiovascular: Irregular Rhythm, Tachycardia GI/Abdominal Exam: Normal Bowel Sounds, Soft, Non-Tender, No Organomegaly, No Distention, No Abnormal Bruit, No Mass, Pelvis Stable (Male) Exam: Deferred Back Exam: Normal Inspection, Full Range of Motion Extremities: Normal Inspection, Normal Range of Motion, Non-Tender, No Pedal Edema, Normal Capillary Refill Skin: Warm, Dry, Intact Wound/Incisions: Healing Well Neurological: No New Focal Deficit Psy/Mental Status: Alert - Patient Data Lab Results Last 24 hrs: Laboratory Results - last 24 hr 12/12/20 12/13/20 12/13/20 Range/Units 21:00 05:11 06:30 D-Dimer, Quantitative (0.19-0.50) mg/L Sodium 143 (136-145) mEq/L Potassium 4.3 (3.5-5.1) mEq/L Chloride 105 (98-107) mEq/L Carbon Dioxide 26 (21-32) mEq/L Anion Gap 16.3 H (5-15) BUN 28 H (7-18) mg/dL Creatinine 1.1 (0.7-1.3) mg/dL Est Cr Clr Drug Dosing 60.83 mL/min Estimated GFR (MDRD) > 60 (>60) mL/min BUN/Creatinine Ratio 25.5 H (14-18) Glucose 125 H (70-99) mg/dL POC Glucose 154 H 126 H (70-99) mg/dL Calcium 9.0 (8.5-10.1) mg/dL Magnesium 2.5 H (1.8-2.4) mg/dL Total Bilirubin 1.1 H (0.2-1.0) mg/dL AST 57 H (15-37) U/L ALT 175 H (16-63) U/L Alkaline Phosphatase 83 (46-116) U/L C-Reactive Protein < 0.2 (<1.0) mg/dL Total Protein 7.2 (6.4-8.2) g/dl Albumin 3.3 L (3.4-5.0) g/dl Globulin 3.9 gm/dL Albumin/Globulin Ratio 0.9 L (1-2) 12/13/20 12/13/20 Range/Units 06:53 11:02 D-Dimer, Quantitative 1.04 H (0.19-0.50) mg/L Sodium (136-145) mEq/L Potassium (3.5-5.1) mEq/L Chloride (98-107) mEq/L Carbon Dioxide (21-32) mEq/L Anion Gap (5-15) BUN (7-18) mg/dL Creatinine (0.7-1.3) mg/dL Est Cr Clr Drug Dosing mL/min Estimated GFR (MDRD) (>60) mL/min BUN/Creatinine Ratio (14-18) Glucose (70-99) mg/dL POC Glucose 129 H (70-99) mg/dL Calcium (8.5-10.1) mg/dL Magnesium (1.8-2.4) mg/dL Total Bilirubin (0.2-1.0) mg/dL AST (15-37) U/L ALT (16-63) U/L Alkaline Phosphatase (46-116) U/L C-Reactive Protein (<1.0) mg/dL Total Protein (6.4-8.2) g/dl Albumin (3.4-5.0) g/dl Globulin gm/dL Albumin/Globulin Ratio (1-2) Result Diagrams: 12/15/20 07:27 12/15/20 07:27 Sepsis Event Note - Evaluation Sepsis Screening Result: No Definite Risk Current Stage of Sepsis: Sepsis Possible Source of Sepsis: Pulmonary - Focused Exam Sepsis Event Note Statement: Focused Sepsis Exam Completed Vital Signs: Vital Signs Temp Temp Pulse Pulse Resp BP BP 12/13/20 16:40 12/13/20 15:56 12/13/20 15:50 36.6 C 95 18 111/61 12/13/20 14:57 12/13/20 11:11 36.5 C 87 20 129/86 12/13/20 09:20 63 148/85 H 12/13/20 09:19 63 148/85 H 12/13/20 09:16 63 12/13/20 08:10 36.7 C 52 L 18 148/85 H 12/13/20 06:30 Pulse Ox Pulse Ox 12/13/20 16:40 89 L 12/13/20 15:56 89 L 12/13/20 15:50 12/13/20 14:57 92 L 12/13/20 11:11 88 L 12/13/20 09:20 12/13/20 09:19 12/13/20 09:16 12/13/20 08:10 90 L 12/13/20 06:30 90 L Respiratory Effort Without Exertion: Hyperpnea Heart Sounds: Irregular Capillary Refill, Detail: Greater than (>) 2 Seconds Pulse Description: 2+ Normal Peripheral Pulse Location: Radial - Bedside Monitoring CVP Measures: Less than 8 ScvO2 Measures: Greater than or Equal to 70% Passive Leg Raise/Fluid Bolus: Negative, Not Performed Date Bedside Monitoring was Performed: 12/20/20 Time Bedside Monitoring was Performed: 19:53 - Problem List & Annotations (1) Acute respiratory failure due to COVID-19 SNOMED Code(s): 452284915 Code(s): U07.1 - COVID-19; J96.00 - ACUTE RESPIRATORY FAILURE, UNSP W HYPOXIA OR HYPERCAPNIA Status: Acute Priority: High Onset Date: ~12/12/20 (2) Congestive heart failure SNOMED Code(s): 65987136 Code(s): I50.9 - HEART FAILURE, UNSPECIFIED Status: Acute Priority: High Onset Date: ~12/12/20 Qualifiers: Heart failure type: combined systolic and diastolic Heart failure chronicity: acute on chronic Qualified Code(s): I50.43 - 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 (3) Hypokalemia SNOMED Code(s): 26794780 Code(s): E87.6 - HYPOKALEMIA Status: Acute Priority: Low Onset Date: ~12/08/20 (4) Atrial fibrillation, chronic SNOMED Code(s): 099740549 Code(s): I48.20 - CHRONIC ATRIAL FIBRILLATION, UNSPECIFIED Status: Chronic Priority: Medium Annotation/Comment:: resolved (5) Chronic anticoagulation SNOMED Code(s): 318337729 Code(s): Z79.01 - [facility] (CURRENT) USE OF ANTICOAGULANTS Status: Chronic Priority: Medium Onset Date: ~12/12/20 - Problem List Review Problem List Initiated/Reviewed/Updated: Yes - My Orders Last 24 Hours: My Active Orders 12/13/20 14:10 LORazepam [Ativan] 0.5 mg IVPUSH Q2H PRN - Assessment Assessment:: 12/12/20 afebrile on high flow o2 and sats decreased but no prone position during semiconductor bonder. patient anxious but better since getting up to chair. vs as recorded. denies appetite yet /feels okay but chronic persaud at rest. lungs cracles rt base and posterior. wheeze occasionally left . cor rrr 90-100 abd benign. neuro oriented and coop. mild anxiety better after just talking. skin normal lab b.s mildly elevated. assess//plan 1// covid pneumoni/ abd soft and non tender and monitor but prob acute phase elevations t.b okay boh a requiring high flow / nebs /steriods day 6. recheck labs in am a nd chest xray in am .not much progress but now day 8 since symptoms began . treating without weaning o2 per covid protocol currently 65 and fio2 55% 2// cad appears stable 3// chf appears compensated and hopefully will start to resolve. 4// renal function and uo good. 5//anxiety mild to mod. and monitoring. 6// elevated lfts without alp phos elavation boh 12/13/20 afebrile vss i/os good. ate yest x 2 small portions resp: resp decreased tachypnea,decreased distress on high flow 65/55 and prone 2 hours on /off. xray little change moderate infiltrates,increased vasc. cor: afib rate controlled 70-92 abd benign neuro aox 4,more interactive and mild confusion that flucuates. covid s/p rems and per protocol done, on steriods day 7 with symptoms days 9. chf stable cad stable renal function stable lfts coming down slowly anxiety better,cooperation better, discussed jail rehab with patient and family . vibra likely and pulm and cardiac risk factors place him at high risk along with age and other medical conditions . overall prognosis for survival looking better with improvements seen today . recheck labs and chest xray and cont to wean as tolerated. boh - Plan Plan:: The patient is a 75-year-old gentleman who has been admitted as an inpatient due to acute respiratory failure from COVID-19. He also has pneumonia due to COVID-19. The patient will be started on remdesivir 200 mg initial dose followed by 100 mg for 4 days. He is also been placed on dexamethasone for the next 10 days. The patient currently has chronic atrial fibrillation and is an ticoagulated with Eliquis therefore pharmacological DVT prophylaxis will not be needed. The patient will also be kept on telemetry. Also in concerned that the patient would be a fall risk and does not need SCDs. Patient also has hypokalemia and his electrolytes have been replaced. I have ordered repeat laboratory studies for the morning. PT OT will be ordered due to the patient's chronic pain and weakness. Regular heart healthy diet has been ordered for the patient. He has been encouraged to ambulate as he can. His home medications will be restarted once verified. The patient should be appropriate for discharge in 4 to 5 days depending upon his oxygen requirements and medication completion. Due to the patient's age and weakness fci facility may be needed. Assessment 75M presenting with Acute hypoxic respiratory failure secondary to COVID 19 PNA; has not been vaccinated unfortunately 1. Acute hypoxic Respiratory failure secondary to COVID 19 PNA 2. Hx of CAD/3v CABG/CHF 3. Chest pain 4. Hx of Atrial Fibrillation on eliquis 5. Hypokalemia 6. hx of Depression 7. Steroid induced hyperglycemia 8. Hypertension -CT PE study negative for PE -prn morphine/ntg -EKG-completed -Echo pending -continue tele -electrolyte replacement -RT following -discontinued IVF from admission -continue steroids -completed remdesivir infusion -completed actemra on 12/09 -continue lantus and SSI humalog -follow LFTs/renal function/RUQ US in AM 12/12 -start HCTZ 12/11; holding BB due to bradycardia -check CXR and VBG today Code Status-Full code DVT ppx-eliquis Anticipated LOS 2-3 days stable oxygen requirements 12/12/20 afebrile on high flow o2 and sats decreased but no prone position during semiconductor bonder. patient anxious but better since getting up to chair. vs as recorded. denies appetite yet /feels okay but chronic persaud at rest. lungs cracles rt base and posterior. wheeze occasionally left . cor rrr 90-100 abd benign. neuro oriented and coop. mild anxiety better after just talking. skin normal lab b.s mildly elevated. assess//plan 1// covid pneumonia/ a requiring high flow / nebs /steriods day 6. recheck labs in am a nd chest xray in am .not much progress but now day 8 since symptoms began . treating without weaning o2 per covid protocol currently 65 and fio2 55% abd soft and non tender and monitor but prob acute phase elevations t.b okay boh a requiring high flow / nebs /steriods day 6. recheck labs in am a nd chest xray in am .not much progress but now day 8 since symptoms began . treating without weaning o2 per covid protocol currently 65 and fio2 55% 2// cad appears stable/// restarted metoprolol and cardizem today and heart rate decreasing/ b.p decreasing. 3// chf appears compensated and hopefully will start to resolve. 4// renal function and uo good. 5//anxiety mild to mod. and monitoring. 6// elavated lfts without alp phos elavation. boh 12/13/20 afebrile vss i/os good. ate yest x 2 small portions resp: resp decreased tachypnea,decreased distress on high flow 65/55 and prone 2 hours on /off. xray little change moderate infiltrates,increased vasc. cor: afib rate controlled 70-92 abd benign neuro aox 4,more interactive and mild confusion that flucuates. covid s/p rems and per protocol done, on steriods day 7 with symptoms days 9. chf stable cad stable renal function stable lfts coming down slowly anxiety better,cooperation better, discussed jail rehab with patient and family . vibra likely and pulm and cardiac risk factors place him at high risk along with age and other medical conditions . overall prognosis for survival looking better with improvements seen today . recheck labs and chest xray and cont to wean as tolerated. boh
[2020-12-13] MEDS: Insulin Glarg,Human.Rec.Analog 100 Unit/ML SUBCUT SCH (17:06)
[2020-12-13] MEDS: Morphine 2 MG/ML SYRINGE IVPUSH PRN (22:08)
[2020-12-14] MEDS: HYDROmorphone 2 MG Tab PO SCH ×4 (05:08→22:09)
--- NOTE | 2020-12-14 08:14 | PCM.PN ---
- General Info Date of Service: 12/14/20 Admission Dx/Problem (Free Text): Acute hypoxic respiratory failure. Acute COVID-19 pneumonitis. Subjective Update: No acute events overnight. No specific new nursing concerns. Patient has not been proning much. No progress made on high flow overnight as far as weaning. Patient has no specific new concerns or complaints this morning. Denies any chest pressure, pleurisy, abdominal complaints or difficulties with voiding. - Patient Data Vitals - Most Recent: Last Vital Signs Temp 97.7 F 12/14/20 04:10 Pulse 65 12/14/20 04:10 Resp 20 12/14/20 04:10 BP 128/64 12/14/20 04:10 Pulse Ox 91 L 12/14/20 06:25 Weight - Most Recent: 264 lb 1.6 oz I&O - Last 24 Hours: Intake & Output 12/13/20 12/14/20 12/14/20 22:59 06:59 14:59 Intake Total 520 250 Output Total 550 500 Balance -30 -250 Lab Results Last 24 Hours: Laboratory Results - last 24 hr 12/13/20 12/13/20 12/13/20 Range/Units 11:02 16:54 17:50 WBC 15.31 H (4.23-9.07) K/mm3 RBC 6.59 H (4.63-6.08) M/mm3 Hgb 17.2 D (13.7-17.5) gm/dl Hct 53.6 H (40.1-51.0) % MCV 81.3 (79.0-92.2) fl MCH 26.1 (25.7-32.2) pg MCHC 32.1 L (32.2-35.5) g/dl RDW Std Deviation 48.3 H (35.1-43.9) fL Plt Count 274 (163-337) K/mm3 MPV 11.4 (9.4-12.3) fl Neut % (Auto) 94.5 H (34.0-67.9) % Lymph % (Auto) 3.1 L (21.8-53.1) % Gr[place]gs % (Auto) 1.8 L (5.3-12.2) % Eos % (Auto) 0 L (0.8-7.0) Baso % (Auto) 0.1 (0.1-1.2) % Neut # (Auto) 14.48 H (1.78-5.38) K/mm3 Lymph # (Auto) 0.47 L (1.32-3.57) K/mm3 [place]gs # (Auto) 0.28 L (0.30-0.82) K/mm3 Eos # (Auto) 0.00 L (0.04-0.54) K/mm3 Baso # (Auto) 0.01 (0.01-0.08) K/mm3 Manual Slide Review Abnormal smear Sodium (136-145) mEq/L Potassium (3.5-5.1) mEq/L Chloride (98-107) mEq/L Carbon Dioxide (21-32) mEq/L Anion Gap (5-15) BUN (7-18) mg/dL Creatinine (0.7-1.3) mg/dL Est Cr Clr Drug Dosing mL/min Estimated GFR (MDRD) (>60) mL/min BUN/Creatinine Ratio (14-18) Glucose (70-99) mg/dL POC Glucose 129 H 187 H (70-99) mg/dL Calcium (8.5-10.1) mg/dL Magnesium (1.8-2.4) mg/dL Total Bilirubin (0.2-1.0) mg/dL AST (15-37) U/L ALT (16-63) U/L Alkaline Phosphatase (46-116) U/L C-Reactive Protein (<1.0) mg/dL Total Protein (6.4-8.2) g/dl Albumin (3.4-5.0) g/dl Globulin gm/dL Albumin/Globulin Ratio (1-2) 12/13/20 12/14/20 12/14/20 Range/Units 21:07 05:55 06:06 WBC (4.23-9.07) K/mm3 RBC (4.63-6.08) M/mm3 Hgb (13.7-17.5) gm/dl Hct (40.1-51.0) % MCV (79.0-92.2) fl MCH (25.7-32.2) pg MCHC (32.2-35.5) g/dl RDW Std Deviation (35.1-43.9) fL Plt Count (163-337) K/mm3 MPV (9.4-12.3) fl Neut % (Auto) (34.0-67.9) % Lymph % (Auto) (21.8-53.1) % Griggs % (Auto) (5.3-12.2) % Eos % (Auto) (0.8-7.0) Baso % (Auto) (0.1-1.2) % Neut # (Auto) (1.78-5.38) K/mm3 Lymph # (Auto) (1.32-3.57) K/mm3 [place]gs # (Auto) (0.30-0.82) K/mm3 Eos # (Auto) (0.04-0.54) K/mm3 Baso # (Auto) (0.01-0.08) K/mm3 Manual Slide Review Sodium 143 (136-145) mEq/L Potassium 4.3 (3.5-5.1) mEq/L Chloride 106 (98-107) mEq/L Carbon Dioxide 25 (21-32) mEq/L Anion Gap 16.3 H (5-15) BUN 35 H (7-18) mg/dL Creatinine 1.4 H (0.7-1.3) mg/dL Est Cr Clr Drug Dosing 47.80 mL/min Estimated GFR (MDRD) 50 (>60) mL/min BUN/Creatinine Ratio 25.0 H (14-18) Glucose 133 H (70-99) mg/dL POC Glucose 161 H 155 H (70-99) mg/dL Calcium 8.6 (8.5-10.1) mg/dL Magnesium 2.5 H (1.8-2.4) mg/dL Total Bilirubin 1.0 (0.2-1.0) mg/dL AST 37 (15-37) U/L ALT 130 H (16-63) U/L Alkaline Phosphatase 83 (46-116) U/L C-Reactive Protein <0.2 (<1.0) mg/dL Total Protein 7.0 (6.4-8.2) g/dl Albumin 3.3 L (3.4-5.0) g/dl Globulin 3.7 gm/dL Albumin/Globulin Ratio 0.9 L (1-2) Med Orders - Current: Current Medications Acetaminophen (Acetaminophen 325 Mg Tab) 650 mg PO Q4H PRN PRN Reason: Pain (moderate 4-6) Last Admin: 12/11/20 00:30 Dose: 650 mg Documented by: Albuterol (Albuterol 6.7 Gm Inhaler) 0 gm INH Q4H PRN PRN Reason: sob/wheezing Last Admin: 12/11/20 01:05 Dose: 2 puff Documented by: Albuterol/Ipratropium (Albuterol/Ipratropium 3.0-0.5 Mg/3 Ml Neb Soln) 3 ml NEB Q4H PRN PRN Reason: Shortness Of Breath/wheezing Last Admin: 12/11/20 08:36 Dose: 3 ml Documented by: Allopurinol (Allopurinol 300 Mg Tab) 300 mg PO DAILY [facility] Last Admin: 12/13/20 09:21 Dose: 300 mg Documented by: Apixaban (Apixaban 5 Mg Tab) 5 mg PO BID [facility] Last Admin: 12/13/20 20:38 Dose: 5 mg Documented by: Artificial Tears (Carboxymethylcellulose Sodium 1% Ophth Gel 15 Ml Bottle) 1 ml EYEBOTH TID PRN PRN Reason: Dry Eyes Last Admin: 12/10/20 08:07 Dose: 1 drop Documented by: Aspirin (Aspirin 81 Mg Tab.Chew) 81 mg PO DAILY [facility] Last Admin: 12/13/20 09:19 Dose: 81 mg Documented by: Benzocaine/Menthol (Benzocaine/Cetylpyridinium/Menthol Lozenge) 1 lozenge MUCMEM Q2H PRN PRN Reason: Sore Throat Last Admin: 12/11/20 00:30 Dose: 1 lozenge Documented by: Bisacodyl (Bisacodyl 10 Mg Supp) 10 mg RECTAL DAILY PRN PRN Reason: Constipation Last Admin: 12/09/20 12:22 Dose: 10 mg Documented by: Cholecalciferol (Cholecalciferol (Vitamin D3) 5,000 Unit Cap) 5,000 unit PO DAILY [facility] Last Admin: 12/13/20 09:21 Dose: 5,000 unit Documented by: Diltiazem HCl (Diltiazem 120 Mg Cap.Cd) 120 mg PO DAILY [facility] Last Admin: 12/13/20 09:19 Dose: 120 mg Documented by: Hydralazine HCl (Hydralazine 20 Mg/Ml Sdv) 10 mg IVPUSH Q8H PRN PRN Reason: Other Hydrochlorothiazide (Hydrochlorothiazide 12.5 Mg Cap) 12.5 mg PO DAILY [facility] Last Admin: 12/13/20 09:20 Dose: 12.5 mg Documented by: Hydromorphone HCl (Hydromorphone 2 Mg Tab) 4 mg PO Q6H [facility] Last Admin: 12/14/20 05:08 Dose: 4 mg Documented by: Insulin Glargine (Insulin Glarg,Human.Rec.Analog 100 Unit/Ml) 4 unit SUBCUT 1800 [facility] Last Admin: 12/13/20 17:06 Dose: 4 units Documented by: Insulin Human Lispro (Insulin Lispro 100 Unit/Ml 10 Ml Vial) 0 unit SUBCUT QIDACANDBED [facility]; Protocol Last Admin: 12/13/20 22:00 Dose: 2 units Documented by: Lorazepam (Lorazepam 2 Mg/Ml Sdv) 0.5 mg IVPUSH Q2H PRN PRN Reason: Anxiety Last Admin: 12/13/20 19:04 Dose: 0.5 mg Documented by: Methylprednisolone Sodium Succinate (Methylprednisolone Sodium Succinate 40 Mg/1 Ml Sdv) 60 mg IVPUSH Q6H [facility] Metoprolol Succinate (Metoprolol Succinate 50 Mg Tab.Er) 50 mg PO DAILY [facility] Last Admin: 12/13/20 09:20 Dose: 50 mg Documented by: Morphine Sulfate (Morphine 2 Mg/Ml Syringe) 2 mg IVPUSH Q1H PRN PRN Reason: chest pain Last Admin: 12/13/20 22:08 Dose: 2 mg Documented by: Nitroglycerin (Nitroglycerin 0.4 Mg Tab.Sl) 0.4 mg SL Q5M PRN PRN Reason: Chest Pain Ondansetron HCl (Ondansetron 4 Mg Tab.Dis) 4 mg PO Q4H PRN PRN Reason: nausea, able to take PO Last Admin: 12/08/20 09:57 Dose: 4 mg Documented by: Pantoprazole Sodium (Pantoprazole 40 Mg Tab.Cr) 40 mg PO DAILY [facility] Last Admin: 12/13/20 09:21 Dose: 40 mg Documented by: Potassium Chloride (Potassium Chloride 20 Meq Tab.Er) 20 meq PO TID [facility] Last Admin: 12/13/20 20:38 Dose: 20 meq Documented by: Sertraline HCl (Sertraline 50 Mg Tab) 50 mg PO DAILY [facility] Last Admin: 12/13/20 09:20 Dose: 50 mg Documented by: Sodium Chloride (Sodium Chloride 0.9% 10 Ml Syringe) 10 ml FLUSH ASDIRECTED PRN PRN Reason: Keep Vein Open Last Admin: 12/06/20 18:28 Dose: 10 ml Documented by: Temazepam (Temazepam 15 Mg Cap) 15 mg PO BEDTIME PRN PRN Reason: Sleep Torsemide (Torsemide 20 Mg Tab) 20 mg PO DAILY [facility] Last Admin: 12/13/20 09:21 Dose: 20 mg Documented by: Discontinued Medications Dexamethasone (Dexamethasone 4 Mg Tab) 6 mg PO DAILY [facility] Last Admin: 12/13/20 09:20 Dose: 6 mg Documented by: Diltiazem HCl (Diltiazem 120 Mg Cap.Cd) 120 mg PO ONETIME ONE Stop: 12/10/20 17:33 Last Admin: 12/10/20 17:44 Dose: 120 mg Documented by: Sodium Chloride (Normal Saline) 1,000 mls @ 100 mls/hr IV ASDIRECTED [facility] Last Admin: 12/08/20 03:32 Dose: 100 mls/hr Documented by: Remdesivir 200 mg/ Sodium (Chloride) 250 mls @ 250 mls/hr IV ONETIME ONE Stop: 12/06/20 20:21 Last Admin: 12/06/20 22:06 Dose: 250 mls/hr Documented by: Potassium Chloride 10 meq/ (Premix) 100 mls @ 100 mls/hr IV Q1H [facility] Stop: 12/07/20 09:44 Last Admin: 12/07/20 10:10 Dose: 100 mls/hr Documented by: Remdesivir 100 mg/ Sodium (Chloride) 100 mls @ 100 mls/hr IV Q24H [facility] Stop: 12/10/20 22:59 Last Admin: 12/10/20 21:27 Dose: 100 mls/hr Documented by: Sodium Chloride (Normal Saline) 100 mls @ 75 mls/hr IV ASDIRECTED [facility] Stop: 12/08/20 12:00 Tocilizumab 800 mg/ Sodium (Chloride) 100 mls @ 100 mls/hr IV ONETIME ONE Stop: 12/09/20 12:01 Last Admin: 12/09/20 12:21 Dose: 100 mls/hr Documented by: Iopamidol (Iopamidol 755 Mg/Ml 100 Ml Bottle) 100 ml IVPUSH ONETIME ONE Stop: 12/08/20 08:53 Last Admin: 12/08/20 10:18 Dose: 100 ml Documented by: Lorazepam (Lorazepam 2 Mg/Ml Sdv) Confirm Administered Dose 2 mg .ROUTE .STK-MED ONE Stop: 12/13/20 14:18 Last Admin: 12/13/20 14:43 Dose: Not Given Documented by: Sodium Chloride (Sodium Chloride 0.9% 10 Ml Syringe) 10 ml FLUSH ONETIME PRN PRN Reason: IV FLUSH Stop: 12/08/20 12:00 Last Admin: 12/08/20 10:18 Dose: 10 ml Documented by: - Exam Quality Assessment: Supplemental Oxygen General: Alert, Oriented Neck: Supple Lungs: Normal Respiratory Effort, Decreased Breath Sounds Cardiovascular: Tachycardia GI/Abdominal Exam: Normal Bowel Sounds, Soft, Non-Tender Extremities: Normal Inspection, No Pedal Edema Skin: Warm, Dry, Intact Neurological: No New Focal Deficit - Patient Data Lab Results Last 24 hrs: Laboratory Results - last 24 hr 12/13/20 12/13/20 12/13/20 Range/Units 11:02 16:54 17:50 WBC 15.31 H (4.23-9.07) K/mm3 RBC 6.59 H (4.63-6.08) M/mm3 Hgb 17.2 D (13.7-17.5) gm/dl Hct 53.6 H (40.1-51.0) % MCV 81.3 (79.0-92.2) fl MCH 26.1 (25.7-32.2) pg MCHC 32.1 L (32.2-35.5) g/dl RDW Std Deviation 48.3 H (35.1-43.9) fL Plt Count 274 (163-337) K/mm3 MPV 11.4 (9.4-12.3) fl Neut % (Auto) 94.5 H (34.0-67.9) % Lymph % (Auto) 3.1 L (21.8-53.1) % [place]gs % (Auto) 1.8 L (5.3-12.2) % Eos % (Auto) 0 L (0.8-7.0) Baso % (Auto) 0.1 (0.1-1.2) % Neut # (Auto) 14.48 H (1.78-5.38) K/mm3 Lymph # (Auto) 0.47 L (1.32-3.57) K/mm3 [place]gs # (Auto) 0.28 L (0.30-0.82) K/mm3 Eos # (Auto) 0.00 L (0.04-0.54) K/mm3 Baso # (Auto) 0.01 (0.01-0.08) K/mm3 Manual Slide Review Abnormal smear Sodium (136-145) mEq/L Potassium (3.5-5.1) mEq/L Chloride (98-107) mEq/L Carbon Dioxide (21-32) mEq/L Anion Gap (5-15) BUN (7-18) mg/dL Creatinine (0.7-1.3) mg/dL Est Cr Clr Drug Dosing mL/min Estimated GFR (MDRD) (>60) mL/min BUN/Creatinine Ratio (14-18) Glucose (70-99) mg/dL POC Glucose 129 H 187 H (70-99) mg/dL Calcium (8.5-10.1) mg/dL Magnesium (1.8-2.4) mg/dL Total Bilirubin (0.2-1.0) mg/dL AST (15-37) U/L ALT (16-63) U/L Alkaline Phosphatase (46-116) U/L C-Reactive Protein (<1.0) mg/dL Total Protein (6.4-8.2) g/dl Albumin (3.4-5.0) g/dl Globulin gm/dL Albumin/Globulin Ratio (1-2) 12/13/20 12/14/20 12/14/20 Range/Units 21:07 05:55 06:06 WBC (4.23-9.07) K/mm3 RBC (4.63-6.08) M/mm3 Hgb (13.7-17.5) gm/dl Hct (40.1-51.0) % MCV (79.0-92.2) fl MCH (25.7-32.2) pg MCHC (32.2-35.5) g/dl RDW Std Deviation (35.1-43.9) fL Plt Count (163-337) K/mm3 MPV (9.4-12.3) fl Neut % (Auto) (34.0-67.9) % Lymph % (Auto) (21.8-53.1) % [place]gs % (Auto) (5.3-12.2) % Eos % (Auto) (0.8-7.0) Baso % (Auto) (0.1-1.2) % Neut # (Auto) (1.78-5.38) K/mm3 Lymph # (Auto) (1.32-3.57) K/mm3 [place]gs # (Auto) (0.30-0.82) K/mm3 Eos # (Auto) (0.04-0.54) K/mm3 Baso # (Auto) (0.01-0.08) K/mm3 Manual Slide Review Sodium 143 (136-145) mEq/L Potassium 4.3 (3.5-5.1) mEq/L Chloride 106 (98-107) mEq/L Carbon Dioxide 25 (21-32) mEq/L Anion Gap 16.3 H (5-15) BUN 35 H (7-18) mg/dL Creatinine 1.4 H (0.7-1.3) mg/dL Est Cr Clr Drug Dosing 47.80 mL/min Estimated GFR (MDRD) 50 (>60) mL/min BUN/Creatinine Ratio 25.0 H (14-18) Glucose 133 H (70-99) mg/dL POC Glucose 161 H 155 H (70-99) mg/dL Calcium 8.6 (8.5-10.1) mg/dL Magnesium 2.5 H (1.8-2.4) mg/dL Total Bilirubin 1.0 (0.2-1.0) mg/dL AST 37 (15-37) U/L ALT 130 H (16-63) U/L Alkaline Phosphatase 83 (46-116) U/L C-Reactive Protein <0.2 (<1.0) mg/dL Total Protein 7.0 (6.4-8.2) g/dl Albumin 3.3 L (3.4-5.0) g/dl Globulin 3.7 gm/dL Albumin/Globulin Ratio 0.9 L (1-2) Result Diagrams: 12/13/20 17:50 12/14/20 06:06 Sepsis Event Note - Evaluation Sepsis Screening Result: No Definite Risk - Focused Exam Vital Signs: Vital Signs Temp Pulse Resp BP Pulse Ox Pulse Ox 12/14/20 06:25 91 L 12/14/20 04:10 97.7 F 65 20 128/64 84 L 12/14/20 00:40 97.7 F 55 L 20 138/76 85 L 12/13/20 20:10 98.2 F 57 L 24 H 136/67 88 L - Problem List Review Problem List Initiated/Reviewed/Updated: Yes - My Orders Last 24 Hours: My Active Orders 12/14/20 08:15 methylPREDNISolone Sod Succ [Solu-MEDROL] 60 mg IVPUSH Q6H - Plan Plan:: Assessment 75M presenting with Acute hypoxic respiratory failure secondary to COVID 19 PNA; has not been vaccinated unfortunately 1. Acute hypoxic Respiratory failure secondary to COVID 19 pneumonitis 2. Hx of CAD/3v CABG/CHF 3. Chest pain 4. Hx of Atrial Fibrillation on eliquis 5. Hypokalemia 6. hx of Depression 7. Steroid induced hyperglycemia 8. Hypertension -CT PE study negative for PE -prn morphine/ntg -EKG-completed -Echo pending -continue tele -electrolyte replacement as necessary -RT following -discontinued IVF from admission -Steroids upgraded to methylprednisolone 60 mg IV every 6 hours -completed remdesivir infusion -completed actemra on 12/09 -continue lantus and SSI humalog -Proning position at least 3 times daily Code Status-Full code DVT ppx-eliquis
[2020-12-14] MEDS: Sertraline 50 MG Tab PO SCH (08:18)
[2020-12-14] MEDS: methylPREDNISolone Sodium Succinate 40 MG/1 ML SDV IVPUSH SCH ×3 (08:18→22:08)
[2020-12-14] MEDS: Metoprolol Succinate 50 MG Tab.ER PO SCH (08:18)
[2020-12-14] MEDS: Diltiazem 120 MG Cap.CD PO SCH (08:19)
[2020-12-14] MEDS: Potassium Chloride 20 MEQ Tab.ER PO SCH ×3 (08:19→22:09)
[2020-12-14] MEDS: Allopurinol 300 MG Tab PO SCH (08:20)
[2020-12-14] MEDS: Cholecalciferol (Vitamin D3) 5,000 UNIT Cap PO SCH (08:20)
[2020-12-14] MEDS: Apixaban 5 MG Tab PO SCH ×2 (08:20→22:09)
[2020-12-14] MEDS: Pantoprazole 40 MG Tab.CR PO SCH (08:20)
[2020-12-14] MEDS: Torsemide 20 MG Tab PO SCH (08:20)
[2020-12-14] MEDS: Hydrochlorothiazide 12.5 MG Cap PO SCH (08:20)
[2020-12-14] MEDS: Insulin Lispro 100 UNIT/ML 10 ML Vial SUBCUT SCH ×4 (08:21→22:08)
[2020-12-14] MEDS: Aspirin 81 MG Tab.Chew PO SCH (08:21)
--- NOTE | 2020-12-14 09:18 | CR ---
Chest: Portable view of the chest was obtained. Comparison: Prior chest x-ray of 12/13/20. Patchy areas of increased density are seen on both sides of the chest. Findings appear slightly increased from most recent exam. Heart size is slightly enlarged. Tortuous thoracic aorta is seen with sternotomy wires. No acute osseous abnormality is appreciated. Impression: 1. Patchy areas of increased density on both sides of the chest compatible with COVID pneumonia. This appears slightly more prominent than on recent exam. 2. Other stable findings as noted above. Diagnostic code #3
[2020-12-14] MEDS: Insulin Glarg,Human.Rec.Analog 100 Unit/ML SUBCUT SCH (17:36)
[2020-12-15] MEDS: methylPREDNISolone Sodium Succinate 40 MG/1 ML SDV IVPUSH SCH ×4 (04:00→19:30)
[2020-12-15] MEDS: HYDROmorphone 2 MG Tab PO SCH ×4 (04:15→22:39)
[2020-12-15] MEDS: Insulin Lispro 100 UNIT/ML 10 ML Vial SUBCUT SCH ×4 (08:04→22:39)
[2020-12-15] MEDS: Metoprolol Succinate 50 MG Tab.ER PO SCH (08:04)
[2020-12-15] MEDS: Pantoprazole 40 MG Tab.CR PO SCH (08:05)
[2020-12-15] MEDS: Allopurinol 300 MG Tab PO SCH (08:05)
[2020-12-15] MEDS: Torsemide 20 MG Tab PO SCH (08:05)
[2020-12-15] MEDS: Apixaban 5 MG Tab PO SCH ×2 (08:05→20:56)
[2020-12-15] MEDS: Sertraline 50 MG Tab PO SCH (08:05)
[2020-12-15] MEDS: Diltiazem 120 MG Cap.CD PO SCH (08:05)
[2020-12-15] MEDS: Potassium Chloride 20 MEQ Tab.ER PO SCH ×3 (08:05→20:56)
[2020-12-15] MEDS: Hydrochlorothiazide 12.5 MG Cap PO SCH (08:06)
[2020-12-15] MEDS: Aspirin 81 MG Tab.Chew PO SCH (08:06)
[2020-12-15] MEDS: Cholecalciferol (Vitamin D3) 5,000 UNIT Cap PO SCH (08:06)
[2020-12-15] MEDS ORDERED: Furosemide 40 MG/4 ML VIAL IVPUSH ONE (08:37)
--- NOTE | 2020-12-15 08:42 | PCM.PN ---
- General Info Date of Service: 12/15/20 Admission Dx/Problem (Free Text): Acute hypoxic respiratory failure. Acute COVID-19 pneumonitis. Subjective Update: Patient states that he had a little bit of a rough morning. [place] as if he could not breathe and then got anxious about it. Feeling better today and states that he feels better overall in comparison to yesterday. Patient now close to being maxed out on high flow at 60 L/min and 85% FiO2. Patient still states that he wishes to be full code and would want to be ventilated if necessary. Has not voluntarily proned and continues to give excuses as to why including back pain. Requesting that his son who is local clergy come in to talk to him. - Patient Data Vitals - Most Recent: Last Vital Signs Temp 97.9 F 12/15/20 07:39 Pulse 52 L 12/15/20 08:05 Resp 20 12/15/20 07:39 BP 103/47 L 12/15/20 08:05 Pulse Ox 90 L 12/15/20 08:20 Weight - Most Recent: 261 lb 3.2 oz I&O - Last 24 Hours: Intake & Output 12/14/20 12/15/20 12/15/20 22:59 06:59 14:59 Intake Total 700 600 Output Total 800 Balance -100 600 Lab Results Last 24 Hours: Laboratory Results - last 24 hr 12/14/20 12/14/20 12/14/20 Range/Units 10:33 16:33 21:00 WBC (4.23-9.07) K/mm3 RBC (4.63-6.08) M/mm3 Hgb (13.7-17.5) gm/dl Hct (40.1-51.0) % MCV (79.0-92.2) fl MCH (25.7-32.2) pg MCHC (32.2-35.5) g/dl RDW Std Deviation (35.1-43.9) fL Plt Count (163-337) K/mm3 MPV (9.4-12.3) fl Neut % (Auto) (34.0-67.9) % Lymph % (Auto) (21.8-53.1) % [place] % (Auto) (5.3-12.2) % Eos % (Auto) (0.8-7.0) Baso % (Auto) (0.1-1.2) % Neut # (Auto) (1.78-5.38) K/mm3 Lymph # (Auto) (1.32-3.57) K/mm3 [place] # (Auto) (0.30-0.82) K/mm3 Eos # (Auto) (0.04-0.54) K/mm3 Baso # (Auto) (0.01-0.08) K/mm3 PT (9.7-12.0) SECONDS INR APTT (21.7-31.4) SECONDS D-Dimer, Quantitative (0.19-0.50) mg/L POC Glucose 145 H 200 H 199 H (70-99) mg/dL 12/15/20 12/15/20 12/15/20 Range/Units 06:20 07:27 07:27 WBC 18.38 H (4.23-9.07) K/mm3 RBC 6.38 H (4.63-6.08) M/mm3 Hgb 16.7 (13.7-17.5) gm/dl Hct 51.6 H (40.1-51.0) % MCV 80.9 (79.0-92.2) fl MCH 26.2 (25.7-32.2) pg MCHC 32.4 (32.2-35.5) g/dl RDW Std Deviation 48.6 H (35.1-43.9) fL Plt Count 260 (163-337) K/mm3 MPV 11.6 (9.4-12.3) fl Neut % (Auto) 94.1 H (34.0-67.9) % Lymph % (Auto) 3.2 L (21.8-53.1) % [place] % (Auto) 2.1 L (5.3-12.2) % Eos % (Auto) 0 L (0.8-7.0) Baso % (Auto) 0.1 (0.1-1.2) % Neut # (Auto) 17.31 H (1.78-5.38) K/mm3 Lymph # (Auto) 0.58 L (1.32-3.57) K/mm3 [place] # (Auto) 0.38 (0.30-0.82) K/mm3 Eos # (Auto) 0.00 L (0.04-0.54) K/mm3 Baso # (Auto) 0.02 (0.01-0.08) K/mm3 PT (9.7-12.0) SECONDS INR APTT 24.2 (21.7-31.4) SECONDS D-Dimer, Quantitative 1.33 H (0.19-0.50) mg/L POC Glucose 190 H (70-99) mg/dL 12/15/20 Range/Units 07:27 WBC (4.23-9.07) K/mm3 RBC (4.63-6.08) M/mm3 Hgb (13.7-17.5) gm/dl Hct (40.1-51.0) % MCV (79.0-92.2) fl MCH (25.7-32.2) pg MCHC (32.2-35.5) g/dl RDW Std Deviation (35.1-43.9) fL Plt Count (163-337) K/mm3 MPV (9.4-12.3) fl Neut % (Auto) (34.0-67.9) % Lymph % (Auto) (21.8-53.1) % [place] % (Auto) (5.3-12.2) % Eos % (Auto) (0.8-7.0) Baso % (Auto) (0.1-1.2) % Neut # (Auto) (1.78-5.38) K/mm3 Lymph # (Auto) (1.32-3.57) K/mm3 [place] # (Auto) (0.30-0.82) K/mm3 Eos # (Auto) (0.04-0.54) K/mm3 Baso # (Auto) (0.01-0.08) K/mm3 PT 11.9 (9.7-12.0) SECONDS INR 1.11 APTT (21.7-31.4) SECONDS D-Dimer, Quantitative (0.19-0.50) mg/L POC Glucose (70-99) mg/dL Med Orders - Current: Current Medications Acetaminophen (Acetaminophen 325 Mg Tab) 650 mg PO Q4H PRN PRN Reason: Pain (moderate 4-6) Last Admin: 12/11/20 00:30 Dose: 650 mg Documented by: Albuterol (Albuterol 6.7 Gm Inhaler) 0 gm INH Q4H PRN PRN Reason: sob/wheezing Last Admin: 12/11/20 01:05 Dose: 2 puff Documented by: Albuterol/Ipratropium (Albuterol/Ipratropium 3.0-0.5 Mg/3 Ml Neb Soln) 3 ml NEB Q4H PRN PRN Reason: Shortness Of Breath/wheezing Last Admin: 12/11/20 08:36 Dose: 3 ml Documented by: Allopurinol (Allopurinol 300 Mg Tab) 300 mg PO DAILY [facility] Last Admin: 12/15/20 08:05 Dose: 300 mg Documented by: Apixaban (Apixaban 5 Mg Tab) 5 mg PO BID [facility] Last Admin: 12/15/20 08:05 Dose: 5 mg Documented by: Artificial Tears (Carboxymethylcellulose Sodium 1% Ophth Gel 15 Ml Bottle) 1 ml EYEBOTH TID PRN PRN Reason: Dry Eyes Last Admin: 12/10/20 08:07 Dose: 1 drop Documented by: Aspirin (Aspirin 81 Mg Tab.Chew) 81 mg PO DAILY [facility] Last Admin: 12/15/20 08:06 Dose: 81 mg Documented by: Benzocaine/Menthol (Benzocaine/Cetylpyridinium/Menthol Lozenge) 1 lozenge MUCMEM Q2H PRN PRN Reason: Sore Throat Last Admin: 12/11/20 00:30 Dose: 1 lozenge Documented by: Bisacodyl (Bisacodyl 10 Mg Supp) 10 mg RECTAL DAILY PRN PRN Reason: Constipation Last Admin: 12/09/20 12:22 Dose: 10 mg Documented by: Cholecalciferol (Cholecalciferol (Vitamin D3) 5,000 Unit Cap) 5,000 unit PO DAILY [facility] Last Admin: 12/15/20 08:06 Dose: 5,000 unit Documented by: Diltiazem HCl (Diltiazem 120 Mg Cap.Cd) 120 mg PO DAILY [facility] Last Admin: 12/15/20 08:05 Dose: 120 mg Documented by: Furosemide (Furosemide 40 Mg/4 Ml Vial) 40 mg IVPUSH NOW ONE Stop: 12/15/20 08:38 Hydralazine HCl (Hydralazine 20 Mg/Ml Sdv) 10 mg IVPUSH Q8H PRN PRN Reason: Other Hydrochlorothiazide (Hydrochlorothiazide 12.5 Mg Cap) 12.5 mg PO DAILY [facility] Last Admin: 12/15/20 08:06 Dose: 12.5 mg Documented by: Hydromorphone HCl (Hydromorphone 2 Mg Tab) 4 mg PO Q6H [facility] Last Admin: 12/15/20 04:15 Dose: 4 mg Documented by: Insulin Glargine (Insulin Glarg,Human.Rec.Analog 100 Unit/Ml) 4 unit SUBCUT 1800 [facility] Last Admin: 12/14/20 17:36 Dose: 4 units Documented by: Insulin Human Lispro (Insulin Lispro 100 Unit/Ml 10 Ml Vial) 0 unit SUBCUT QIDACANDBED [facility]; Protocol Last Admin: 12/15/20 08:04 Dose: 2 units Documented by: Lorazepam (Lorazepam 2 Mg/Ml Sdv) 0.5 mg IVPUSH Q2H PRN PRN Reason: Anxiety Last Admin: 12/13/20 19:04 Dose: 0.5 mg Documented by: Methylprednisolone Sodium Succinate (Methylprednisolone Sodium Succinate 40 Mg/1 Ml Sdv) 60 mg IVPUSH Q6H [facility] Last Admin: 12/15/20 08:04 Dose: 60 mg Documented by: Metoprolol Succinate (Metoprolol Succinate 50 Mg Tab.Er) 50 mg PO DAILY [facility] Last Admin: 12/15/20 08:04 Dose: 50 mg Documented by: Morphine Sulfate (Morphine 2 Mg/Ml Syringe) 2 mg IVPUSH Q1H PRN PRN Reason: chest pain Last Admin: 12/13/20 22:08 Dose: 2 mg Documented by: Nitroglycerin (Nitroglycerin 0.4 Mg Tab.Sl) 0.4 mg SL Q5M PRN PRN Reason: Chest Pain Ondansetron HCl (Ondansetron 4 Mg Tab.Dis) 4 mg PO Q4H PRN PRN Reason: nausea, able to take PO Last Admin: 12/08/20 09:57 Dose: 4 mg Documented by: Pantoprazole Sodium (Pantoprazole 40 Mg Tab.Cr) 40 mg PO DAILY [facility] Last Admin: 12/15/20 08:05 Dose: 40 mg Documented by: Potassium Chloride (Potassium Chloride 20 Meq Tab.Er) 20 meq PO TID [facility] Last Admin: 12/15/20 08:05 Dose: 20 meq Documented by: Sertraline HCl (Sertraline 50 Mg Tab) 50 mg PO DAILY [facility] Last Admin: 12/15/20 08:05 Dose: 50 mg Documented by: Sodium Chloride (Sodium Chloride 0.9% 10 Ml Syringe) 10 ml FLUSH ASDIRECTED PRN PRN Reason: Keep Vein Open Last Admin: 12/06/20 18:28 Dose: 10 ml Documented by: Temazepam (Temazepam 15 Mg Cap) 15 mg PO BEDTIME PRN PRN Reason: Sleep Torsemide (Torsemide 20 Mg Tab) 20 mg PO DAILY [facility] Last Admin: 12/15/20 08:05 Dose: 20 mg Documented by: Discontinued Medications Dexamethasone (Dexamethasone 4 Mg Tab) 6 mg PO DAILY [facility] Last Admin: 12/13/20 09:20 Dose: 6 mg Documented by: Diltiazem HCl (Diltiazem 120 Mg Cap.Cd) 120 mg PO ONETIME ONE Stop: 12/10/20 17:33 Last Admin: 12/10/20 17:44 Dose: 120 mg Documented by: Sodium Chloride (Normal Saline) 1,000 mls @ 100 mls/hr IV ASDIRECTED [facility] Last Admin: 12/08/20 03:32 Dose: 100 mls/hr Documented by: Remdesivir 200 mg/ Sodium (Chloride) 250 mls @ 250 mls/hr IV ONETIME ONE Stop: 12/06/20 20:21 Last Admin: 12/06/20 22:06 Dose: 250 mls/hr Documented by: Potassium Chloride 10 meq/ (Premix) 100 mls @ 100 mls/hr IV Q1H [facility] Stop: 12/07/20 09:44 Last Admin: 12/07/20 10:10 Dose: 100 mls/hr Documented by: Remdesivir 100 mg/ Sodium (Chloride) 100 mls @ 100 mls/hr IV Q24H [facility] Stop: 12/10/20 22:59 Last Admin: 12/10/20 21:27 Dose: 100 mls/hr Documented by: Sodium Chloride (Normal Saline) 100 mls @ 75 mls/hr IV ASDIRECTED [facility] Stop: 12/08/20 12:00 Tocilizumab 800 mg/ Sodium (Chloride) 100 mls @ 100 mls/hr IV ONETIME ONE Stop: 12/09/20 12:01 Last Admin: 12/09/20 12:21 Dose: 100 mls/hr Documented by: Iopamidol (Iopamidol 755 Mg/Ml 100 Ml Bottle) 100 ml IVPUSH ONETIME ONE Stop: 12/08/20 08:53 Last Admin: 12/08/20 10:18 Dose: 100 ml Documented by: Lorazepam (Lorazepam 2 Mg/Ml Sdv) Confirm Administered Dose 2 mg .ROUTE .STK-MED ONE Stop: 12/13/20 14:18 Last Admin: 12/13/20 14:43 Dose: Not Given Documented by: Sodium Chloride (Sodium Chloride 0.9% 10 Ml Syringe) 10 ml FLUSH ONETIME PRN PRN Reason: IV FLUSH Stop: 12/08/20 12:00 Last Admin: 12/08/20 10:18 Dose: 10 ml Documented by: - Exam Quality Assessment: Supplemental Oxygen (High flow oxygen at 60 L/min and 85% FiO2), DVT Prophylaxis General: Alert, Oriented, Cooperative, No Acute Distress Lungs: Decreased Breath Sounds, Crackles Cardiovascular: Tachycardia GI/Abdominal Exam: Normal Bowel Sounds, Non-Tender Extremities: Normal Inspection Skin: Warm, Dry Neurological: No New Focal Deficit Psy/Mental Status: Normal Affect - Patient Data Lab Results Last 24 hrs: Laboratory Results - last 24 hr 12/14/20 12/14/20 12/14/20 Range/Units 10:33 16:33 21:00 WBC (4.23-9.07) K/mm3 RBC (4.63-6.08) M/mm3 Hgb (13.7-17.5) gm/dl Hct (40.1-51.0) % MCV (79.0-92.2) fl MCH (25.7-32.2) pg MCHC (32.2-35.5) g/dl RDW Std Deviation (35.1-43.9) fL Plt Count (163-337) K/mm3 MPV (9.4-12.3) fl Neut % (Auto) (34.0-67.9) % Lymph % (Auto) (21.8-53.1) % [place] % (Auto) (5.3-12.2) % Eos % (Auto) (0.8-7.0) Baso % (Auto) (0.1-1.2) % Neut # (Auto) (1.78-5.38) K/mm3 Lymph # (Auto) (1.32-3.57) K/mm3 [place] # (Auto) (0.30-0.82) K/mm3 Eos # (Auto) (0.04-0.54) K/mm3 Baso # (Auto) (0.01-0.08) K/mm3 PT (9.7-12.0) SECONDS INR APTT (21.7-31.4) SECONDS D-Dimer, Quantitative (0.19-0.50) mg/L POC Glucose 145 H 200 H 199 H (70-99) mg/dL 12/15/20 12/15/20 12/15/20 Range/Units 06:20 07:27 07:27 WBC 18.38 H (4.23-9.07) K/mm3 RBC 6.38 H (4.63-6.08) M/mm3 Hgb 16.7 (13.7-17.5) gm/dl Hct 51.6 H (40.1-51.0) % MCV 80.9 (79.0-92.2) fl MCH 26.2 (25.7-32.2) pg MCHC 32.4 (32.2-35.5) g/dl RDW Std Deviation 48.6 H (35.1-43.9) fL Plt Count 260 (163-337) K/mm3 MPV 11.6 (9.4-12.3) fl Neut % (Auto) 94.1 H (34.0-67.9) % Lymph % (Auto) 3.2 L (21.8-53.1) % [place] % (Auto) 2.1 L (5.3-12.2) % Eos % (Auto) 0 L (0.8-7.0) Baso % (Auto) 0.1 (0.1-1.2) % Neut # (Auto) 17.31 H (1.78-5.38) K/mm3 Lymph # (Auto) 0.58 L (1.32-3.57) K/mm3 [place] # (Auto) 0.38 (0.30-0.82) K/mm3 Eos # (Auto) 0.00 L (0.04-0.54) K/mm3 Baso # (Auto) 0.02 (0.01-0.08) K/mm3 PT (9.7-12.0) SECONDS INR APTT 24.2 (21.7-31.4) SECONDS D-Dimer, Quantitative 1.33 H (0.19-0.50) mg/L POC Glucose 190 H (70-99) mg/dL 12/15/20 Range/Units 07:27 WBC (4.23-9.07) K/mm3 RBC (4.63-6.08) M/mm3 Hgb (13.7-17.5) gm/dl Hct (40.1-51.0) % MCV (79.0-92.2) fl MCH (25.7-32.2) pg MCHC (32.2-35.5) g/dl RDW Std Deviation (35.1-43.9) fL Plt Count (163-337) K/mm3 MPV (9.4-12.3) fl Neut % (Auto) (34.0-67.9) % Lymph % (Auto) (21.8-53.1) % [place] % (Auto) (5.3-12.2) % Eos % (Auto) (0.8-7.0) Baso % (Auto) (0.1-1.2) % Neut # (Auto) (1.78-5.38) K/mm3 Lymph # (Auto) (1.32-3.57) K/mm3 [place] # (Auto) (0.30-0.82) K/mm3 Eos # (Auto) (0.04-0.54) K/mm3 Baso # (Auto) (0.01-0.08) K/mm3 PT 11.9 (9.7-12.0) SECONDS INR 1.11 APTT (21.7-31.4) SECONDS D-Dimer, Quantitative (0.19-0.50) mg/L POC Glucose (70-99) mg/dL Result Diagrams: 12/15/20 07:27 12/14/20 06:06 Sepsis Event Note - Evaluation Sepsis Screening Result: No Definite Risk - Focused Exam Vital Signs: Vital Signs Temp Pulse Resp BP Pulse Ox Pulse Ox 12/15/20 08:20 90 L 12/15/20 08:05 52 L 103/47 L 12/15/20 08:04 52 L 103/47 L 12/15/20 07:39 97.9 F 52 L 20 103/47 L 96 12/15/20 06:19 91 L 12/15/20 04:27 97.9 F 63 24 H 139/98 H 88 L 12/14/20 23:01 92 L 12/14/20 21:10 97.5 F 71 22 H 137/92 H 93 L - Problem List Review Problem List Initiated/Reviewed/Updated: Yes - My Orders Last 24 Hours: My Active Orders 12/14/20 08:15 methylPREDNISolone Sod Succ [Solu-MEDROL] 60 mg IVPUSH Q6H 12/15/20 06:09 Isolation [COMM] Stat 12/15/20 07:27 BASIC METABOLIC PANEL,BMP [CHEM] Routine C-REACTIVE PROTEIN [CHEM] Routine FERRITIN [CHEM] Routine LACTATE DEHYDROGENASE,LDH [CHEM] Routine 12/15/20 08:37 Furosemide [Lasix] 40 mg IVPUSH NOW ONE - Plan Plan:: Assessment: 75M presenting with Acute hypoxic respiratory failure secondary to COVID 19 pneumonitis; has not been vaccinated unfortunately. 1. Acute hypoxic Respiratory failure secondary to COVID 19 pneumonitis 2. Hx of CAD/3v CABG/CHF 3. Chest pain 4. Hx of Atrial Fibrillation on eliquis 5. Hypokalemia 6. hx of Depression 7. Steroid induced hyperglycemia 8. Hypertension -CT PE study negative for PE -prn morphine/ntg -continue tele -electrolyte replacement as necessary -RT following -Steroids upgraded to methylprednisolone 60 mg IV every 6 hours, this is day 2. -completed remdesivir infusion -completed actemra on 12/09 -continue lantus and SSI humalog -Proning position continues to be encouraged however the patient does not want to do it. We will give a dose of IV Lasix today. Chest x-ray continues to show increased densities. Spoke to the patient regarding his CODE STATUS and his goals. He wants to be around for his family. Would want to be intubated if necessary. Next steps regarding BiPAP were discussed. We will speak to the patient's son regarding current situation and prognosis. Code Status-Full code DVT ppx-eliquis
[2020-12-15] MEDS: Insulin Glarg,Human.Rec.Analog 100 Unit/ML SUBCUT SCH (17:08)
[2020-12-15] MEDS: Acetaminophen 325 MG Tab PO PRN (20:56)
[2020-12-16] MEDS: methylPREDNISolone Sodium Succinate 40 MG/1 ML SDV IVPUSH SCH ×2 (04:10→10:07)
[2020-12-16] MEDS: HYDROmorphone 2 MG Tab PO SCH ×3 (04:31→16:26)
[2020-12-16] MEDS: Benzocaine/Cetylpyridinium/Menthol Lozenge MUCMEM PRN (04:34)
[2020-12-16] MEDS ORDERED: Morphine 4 MG/ML Syringe IVPUSH ONE (08:58)
[2020-12-16] MEDS ORDERED: LORazepam 2 MG/ML SDV IVPUSH ONE ×2 (08:59→10:30)
[2020-12-16] MEDS ORDERED: Morphine 4 MG/ML Syringe IVPUSH PRN (09:00)
[2020-12-16] MEDS ORDERED: LORazepam 2 MG/ML SDV IVPUSH PRN ×2 (09:01→12:21)
[2020-12-16] MEDS ORDERED: Morphine 10 MG/ML SDV IVPUSH PRN (09:08)
[2020-12-16] MEDS ORDERED: Morphine 10 MG/ML SDV IVPUSH ONE ×2 (10:00→10:30)
[2020-12-16] MEDS ORDERED: LORazepam 2 MG/ML SDV IVPUSH SCH (10:00)
[2020-12-16] MEDS: Allopurinol 300 MG Tab PO SCH (10:05)
[2020-12-16] MEDS: Potassium Chloride 20 MEQ Tab.ER PO SCH (10:06)
[2020-12-16] MEDS: Sertraline 50 MG Tab PO SCH (10:06)
[2020-12-16] MEDS: Cholecalciferol (Vitamin D3) 5,000 UNIT Cap PO SCH (10:06)
[2020-12-16] MEDS: Metoprolol Succinate 50 MG Tab.ER PO SCH (10:06)
[2020-12-16] MEDS: Hydrochlorothiazide 12.5 MG Cap PO SCH (10:06)
[2020-12-16] MEDS: Pantoprazole 40 MG Tab.CR PO SCH (10:06)
[2020-12-16] MEDS: Apixaban 5 MG Tab PO SCH (10:07)
[2020-12-16] MEDS: Diltiazem 120 MG Cap.CD PO SCH (10:07)
[2020-12-16] MEDS: Aspirin 81 MG Tab.Chew PO SCH (10:07)
[2020-12-16] MEDS: Torsemide 20 MG Tab PO SCH (10:07)
[2020-12-16] MEDS: Insulin Lispro 100 UNIT/ML 10 ML Vial SUBCUT SCH (10:07)
[2020-12-16] MEDS ORDERED: Morphine 100 MG in Sodium Chloride 0.9% 90 ML IV SCH ×2 (11:30→12:30)
--- NOTE | 2020-12-16 18:08 | PCM.DCSUM1 ---
Discharge Summary - Hospital Course Free Text/Narrative:: Hospital course: Patient admitted for acute hypoxic respiratory failure in the setting of acute COVID-19 pneumonitis. Patient had poor functional status coming into the hospital. Patient underwent protocol consistent with remdesivir infusion, dexamethasone, and Tocilizumab infusion. Upon coming into the hospital the patient was requiring high volumes of supplemental oxygen eventually requiring high flow. Dexamethasone was eventually discontinued and steroids were increased to 60 mg of Solu-Medrol IV every 6 hour. Despite all therapies, the patient's overall respiratory status continued to worsen. Daily chest x-rays for maintenance examination continue to get worse as far as bilateral infiltrates. His oxygen demand eventually culminated in requiring 60 L/min and 100% FiO2 on the morning of December 16, 2020. The patient was struggling to breathe. He wished to speak to his family regarding ending his own treatment and wishing for comfort measures only. He verbally expressed he did not want to be on BiPAP or to be mechanically ventilated. The patient's family supported his wishes. Conversation was had between primary nurse, myself, and his son and granddaughter regarding [employer] status and the plan. It was agreed upon that the patient would receive boluses of both morphine and Ativan to help him with his air hunger and to help him rest before a morphine infusion was to be started if he did in fact require it. Upon falling asleep, the patient was started on a morphine infusion and his oxygen supply was removed. The patient in the presence of his , son and granddaughter at 17:35 on December 16, 2020 in a peaceful manner. A exam was performed by myself. Patient did not respond to calling of his name or noxious stimuli. Heart and lung sounds were auscultated for approximately a minute. No sounds were heard. No visible chest rise. Pupils were dilated bilaterally. Patient's family wished to pursue postmortem plans at [facility]. Autopsy was offered and family declined. For all of his other medical comorbidities, he was kept on his usual home medication regimen. For specifics regarding his other comorbidities please see progress notes throughout admission. HPI Initial Comments: The patient is a 75-year-old gentleman who had presented to the emergency department complaining of fever chills body aches low energy and dyspnea. Patient had presented to his clinic and his outpatient physician referred him directly to the emergency department with oxygen saturations reportedly in the low 80s. The patient has been in contact with his children who are COVID-19 positive. The patient says that he has a cough associated with this nonproductive. He also has been complaining of weakness and fatigue. Patient also has been taking high dose of hydromorphone at home due to his osteoarthritis and spinal pain. This has been chronic. The patient is somewhat of a poor historian. Onset of Symptoms: Reports: Gradual Duration of Symptoms: Reports: Day(s): Location: Reports: Generalized Severity: Moderate Improves with: Reports: Rest Worsens with: Reports: Movement Context: Reports: Sick Contact (Children positive for COVID-19.) Associated Symptoms: Reports: Diaphoresis, Nausea/Vomiting - Related Data Allergies/Adverse Reactions: Allergies Allergy/AdvReac Type Severity Reaction Status Date / Time atorvastatin [From Lipitor] Allergy Muscle Verified 12/06/20 17:46 Aches oxycodone Allergy Cannot Verified 12/06/20 17:46 Remember Home Medications: Home Meds Aspirin [Iberia Aspirin] 81 mg PO DAILY 07/24/18 [History] Cholecalciferol (Vitamin D3) [Vitamin D3] 5,000 unit PO DAILY 07/24/18 [History] HYDROmorphone [Dilaudid] 4 mg PO Q6H PRN 07/24/18 [History] Metoprolol Succinate [Toprol XL 50mg] 50 mg PO DAILY 07/24/18 [History] Multivitamin [Multivitamins] 1 each PO DAILY 07/24/18 [History] Nitroglycerin [Nitrostat] 0.4 mg SL ASDIRECTED PRN 07/24/18 [History] Rosuvastatin [Crestor] 5 mg PO DAILY 07/24/18 [History] Sertraline [Zoloft] 50 mg PO DAILY 10/08/18 [History] Apixaban [Eliquis] 5 mg PO BID 10/29/19 [History] Potassium Chloride [Klor-Con M10] 10 meq PO DAILY 10/29/19 [History] Torsemide [Demadex] 40 mg PO DAILY 10/29/19 [History] amLODIPine [Norvasc] 2.5 mg PO DAILY 07/29/20 [History] dilTIAZem HCL [Diltiazem 24Hr ER] 1 cap PO QAM #14 cap.er.24h 07/29/20 [Rx] Past Medical History HEENT History: Reports: Hard of Hearing, Impaired Vision Other HEENT History: uses hearing aid Cardiovascular History: Reports: Afib, Arrhythmia, Bypass, Heart Failure, High Cholesterol, Hypertension, OR, SOB on Exertion Respiratory History: Reports: COPD Gastrointestinal History: Reports: None Genitourinary History: Reports: BPH Musculoskeletal History: Reports: Back Pain, Chronic, Gout, Osteoarthritis Psychiatric History: Reports: Anxiety, Depression Endocrine/Metabolic History: Reports: Obesity/BMI 30+ Hematologic History: Reports: None Immunologic History: Reports: None Oncologic (Cancer) History: Reports: None - Infectious Disease History Infectious Disease History: Reports: Chicken Pox, Measles, Mumps, Novel Coronavirus - Past Surgical History Head Surgeries/Procedures: Reports: None Cardiovascular Surgical History: Reports: Coronary Artery Bypass, Other (See Below) Other Cardiovascular Surgeries/Procedures: venous implant/ filter Respiratory Surgical History: Reports: None GI Surgical History: Reports: Cholecystectomy, Colonoscopy, EGD Male Surgical History: Reports: None Endocrine Surgical History: Reports: None Musculoskeletal Surgical History: Reports: Arthroscopic Knee, Knee Replacement Social & Family History - Family History Family Medical History: No Pertinent Family History - Tobacco Use Tobacco Use Status *Q: Never Tobacco User Second Hand Smoke Exposure: No - Caffeine Use Caffeine Use: Reports: None - Recreational Drug Use Recreational Drug Use: No - Living Situation & Occupation Living situation: Reports: , with Spouse Occupation: Retired [employer] Review of Systems - Review of Systems: Review Of Systems: See Below General: Reports: Chills, Weakness, Fatigue HEENT: Reports: Other (Hard of hearing) Pulmonary: Reports: Shortness of Breath, Cough. Denies: Sputum, Hemoptysis Cardiovascular: Reports: No Symptoms Gastrointestinal: Reports: Nausea Genitourinary: Reports: No Symptoms Musculoskeletal: Reports: Shoulder Pain, Back Pain (Chronic), Leg Pain Skin: Reports: No Symptoms Psychiatric: Reports: No Symptoms Neurological: Reports: No Symptoms Hematologic/Lymphatic: Reports: No Symptoms Immunologic: Reports: No Symptoms Exam - Exam Exam: See Below - Vital Signs Vital Signs: Last Vital Signs Temp 37.0 C 12/07/20 04:31 Pulse 71 12/07/20 04:31 Resp 22 H 12/07/20 04:31 BP 137/77 12/07/20 04:31 Pulse Ox 95 12/07/20 06:21 Weight: 127.233 kg - Exam Quality Assessment: Supplemental Oxygen, DVT Prophylaxis General: Alert, Oriented, Cooperative HEENT: Conjunctiva Clear, EACs Clear, EOMI, Mucosa Moist & Vineyard, PERRLA. No: Hearing Intact (Uses one hearing aid) Neck: Supple, Trachea Midline Lungs: Decreased Breath Sounds, Rales (Widespread) Cardiovascular: Regular Rate, Normal S1, Normal S2, Irregular Rhythm GI/Abdominal Exam: Normal Bowel Sounds, Soft, Non-Tender, No Distention. No: Guarding, Rigid, Rebound (Male) Exam: Deferred Rectal (Males) Exam: Deferred Back Exam: Normal Inspection (Appropriate for age), Full Range of Motion (Appro priate for age) Extremities: Normal Inspection, No Pedal Edema Skin: Warm, Intact, Moist (Diaphoretic) Neurological: Cranial Nerves Intact. No: Strength Equal Bilateral (Global weakness) Neuro Extensive - Motor, Sensory, Reflexes: CN II-XII Intact Psychiatric: Alert, Normal Affect, Normal Mood - Discharge Data Discharge Date: 12/16/20 Discharge Disposition: 20 Condition: - Referral to Home Health Primary Care Physician: PCP Not In Area - Patient Summary/Data Consults: Consultations 12/07/20 07:43 Respiratory Care Assess and Treatment [CONS] Routine - Discharge Plan *PRESCRIPTION DRUG MONITORING PROGRAM REVIEWED*: Not Applicable *COPY OF PRESCRIPTION DRUG MONITORING REPORT IN PATIENT LEONARD: Not Applicable Home Medications: Home Meds Aspirin [Iberia Aspirin] 81 mg PO DAILY 07/24/18 [History] Cholecalciferol (Vitamin D3) [Vitamin D3] 5,000 unit PO DAILY 07/24/18 [History] HYDROmorphone [Dilaudid] 4 mg PO Q6H 07/24/18 [History] Metoprolol Succinate [Toprol XL 50mg] 50 mg PO DAILY 07/24/18 [History] Multivitamin [Multivitamins] 1 each PO DAILY 07/24/18 [History] Nitroglycerin [Nitrostat] 0.4 mg SL ASDIRECTED PRN 07/24/18 [History] Apixaban [Eliquis] 5 mg PO BID 10/29/19 [History] Torsemide [Demadex] 20 mg PO DAILY 10/29/19 [History] Allopurinol [Zyloprim] 300 mg PO DAILY 12/07/20 [History] Pantoprazole [ProTONIX] 40 mg PO DAILY 12/07/20 [History] Rosuvastatin Calcium 20 mg PO DAILY 12/07/20 [History] Sertraline [Zoloft] 50 mg PO DAILY 12/07/20 [History] dilTIAZem HCL [Cartia Xt] 120 mg PO DAILY 12/07/20 [History] Patient Handouts: COVID-19 Frequently Asked Questions, Heart Failure, Self Care, [id number], What You Should Know About COVID-19 to Protect Yourself and Others - CDC, Living With Heart Failure, Sepsis, Self Care, Adult Forms: ED Department Discharge Referrals: Nathen Nieto MD [Ordering Only Provider] - Jackie Ziegler MD [Ordering Only Provider] - - Discharge Summary/Plan Comment DC Time >30 min.: No - General Info Date of Service: 12/16/20 Admission Dx/Problem (Free Text: Acute hypoxic respiratory failure. Acute COVID-19 pneumonitis. Subjective Update: - Patient Data Vitals - Most Recent: Last Vital Signs Temp 97.3 F 12/16/20 04:17 Pulse 63 12/16/20 04:17 Resp 28 H 12/16/20 16:17 BP 113/87 12/16/20 04:17 Pulse Ox 52 L 12/16/20 16:17 Weight - Most Recent: 258 lb I&O - Last 24 hours: Intake & Output 12/16/20 12/16/20 12/16/20 06:59 14:59 22:59 Intake Total 200 Output Total 400 Balance -200 Lab Results - Last 24 hrs: Laboratory Results - last 24 hr 12/15/20 Range/Units 20:54 POC Glucose 185 H (70-99) mg/dL Med Orders - Current: Current Medications Morphine Sulfate 100 mg/ (Sodium Chloride) 100 mls @ 6 mls/hr IV CONTINUOUS ADRIANA; Protocol Stop: 12/17/20 04:00 Morphine Sulfate 50 mg/ Sodium (Chloride) 50 mls @ 6 mls/hr IV CONTINUOUS ADRIANA; Protocol Lorazepam (Lorazepam 2 Mg/Ml Sdv) 4 mg IVPUSH Q2H PRN PRN Reason: Sedation Last Admin: 12/16/20 17:15 Dose: 4 mg Documented by: Morphine Sulfate (Morphine 2 Mg/Ml Syringe) 2 mg IVPUSH Q1H PRN PRN Reason: chest pain Last Admin: 12/13/20 22:08 Dose: 2 mg Documented by: Morphine Sulfate (Morphine 10 Mg/Ml Sdv) 10 mg IVPUSH Q6H PRN PRN Reason: PER MD Last Admin: 12/16/20 09:36 Dose: 10 mg Documented by: Nitroglycerin (Nitroglycerin 0.4 Mg Tab.Sl) 0.4 mg SL Q5M PRN PRN Reason: Chest Pain Discontinued Medications Acetaminophen (Acetaminophen 325 Mg Tab) 650 mg PO Q4H PRN PRN Reason: Pain (moderate 4-6) Last Admin: 12/15/20 20:56 Dose: 650 mg Documented by: Albuterol (Albuterol 6.7 Gm Inhaler) 0 gm INH Q4H PRN PRN Reason: sob/wheezing Last Admin: 12/11/20 01:05 Dose: 2 puff Documented by: Albuterol/Ipratropium (Albuterol/Ipratropium 3.0-0.5 Mg/3 Ml Neb Soln) 3 ml NEB Q4H PRN PRN Reason: Shortness Of Breath/wheezing Last Admin: 12/11/20 08:36 Dose: 3 ml Documented by: Allopurinol (Allopurinol 300 Mg Tab) 300 mg PO DAILY [facility] Last Admin: 12/16/20 10:05 Dose: Not Given Documented by: Apixaban (Apixaban 5 Mg Tab) 5 mg PO BID [facility] Last Admin: 12/16/20 10:07 Dose: Not Given Documented by: Artificial Tears (Carboxymethylcellulose Sodium 1% Ophth Gel 15 Ml Bottle) 1 ml EYEBOTH TID PRN PRN Reason: Dry Eyes Last Admin: 12/10/20 08:07 Dose: 1 drop Documented by: Aspirin (Aspirin 81 Mg Tab.Chew) 81 mg PO DAILY [facility] Last Admin: 12/16/20 10:07 Dose: Not Given Documented by: Benzocaine/Menthol (Benzocaine/Cetylpyridinium/Menthol Lozenge) 1 lozenge MUCMEM Q2H PRN PRN Reason: Sore Throat Last Admin: 12/16/20 04:34 Dose: 1 lozenge Documented by: Bisacodyl (Bisacodyl 10 Mg Supp) 10 mg RECTAL DAILY PRN PRN Reason: Constipation Last Admin: 12/09/20 12:22 Dose: 10 mg Documented by: Cholecalciferol (Cholecalciferol (Vitamin D3) 5,000 Unit Cap) 5,000 unit PO DAILY [facility] Last Admin: 12/16/20 10:06 Dose: Not Given Documented by: Dexamethasone (Dexamethasone 4 Mg Tab) 6 mg PO DAILY [facility] Last Admin: 12/13/20 09:20 Dose: 6 mg Documented by: Diltiazem HCl (Diltiazem 120 Mg Cap.Cd) 120 mg PO DAILY [facility] Last Admin: 12/16/20 10:07 Dose: Not Given Documented by: Diltiazem HCl (Diltiazem 120 Mg Cap.Cd) 120 mg PO ONETIME ONE Stop: 12/10/20 17:33 Last Admin: 12/10/20 17:44 Dose: 120 mg Documented by: Furosemide (Furosemide 40 Mg/4 Ml Vial) 40 mg IVPUSH NOW ONE Stop: 12/15/20 08:38 Last Admin: 12/15/20 09:01 Dose: 40 mg Documented by: Hydralazine HCl (Hydralazine 20 Mg/Ml Sdv) 10 mg IVPUSH Q8H PRN PRN Reason: Other Hydrochlorothiazide (Hydrochlorothiazide 12.5 Mg Cap) 12.5 mg PO DAILY [facility] Last Admin: 12/16/20 10:06 Dose: Not Given Documented by: Hydromorphone HCl (Hydromorphone 2 Mg Tab) 4 mg PO Q6H [facility] Last Admin: 12/16/20 16:26 Dose: Not Given Documented by: Sodium Chloride (Normal Saline) 1,000 mls @ 100 mls/hr IV ASDIRECTED [facility] Last Admin: 12/08/20 03:32 Dose: 100 mls/hr Documented by: Remdesivir 200 mg/ Sodium (Chloride) 250 mls @ 250 mls/hr IV ONETIME ONE Stop: 12/06/20 20:21 Last Admin: 12/06/20 22:06 Dose: 250 mls/hr Documented by: Potassium Chloride 10 meq/ (Premix) 100 mls @ 100 mls/hr IV Q1H [facility] Stop: 12/07/20 09:44 Last Admin: 12/07/20 10:10 Dose: 100 mls/hr Documented by: Remdesivir 100 mg/ Sodium (Chloride) 100 mls @ 100 mls/hr IV Q24H [facility] Stop: 12/10/20 22:59 Last Admin: 12/10/20 21:27 Dose: 100 mls/hr Documented by: Sodium Chloride (Normal Saline) 100 mls @ 75 mls/hr IV ASDIRECTED [facility] Stop: 12/08/20 12:00 Tocilizumab 800 mg/ Sodium (Chloride) 100 mls @ 100 mls/hr IV ONETIME ONE Stop: 12/09/20 12:01 Last Admin: 12/09/20 12:21 Dose: 100 mls/hr Documented by: Morphine Sulfate 100 mg/ (Sodium Chloride) 100 mls @ 6 mls/hr IV TITRATE [facility]; Protocol Last Admin: 12/16/20 12:19 Dose: 6 mg/hr, 6 mls/hr Documented by: Insulin Glargine (Insulin Glarg,Human.Rec.Analog 100 Unit/Ml) 4 unit SUBCUT 1800 [facility] Last Admin: 12/15/20 17:08 Dose: 4 units Documented by: Insulin Human Lispro (Insulin Lispro 100 Unit/Ml 10 Ml Vial) 0 unit SUBCUT QIDACANDBED [facility]; Protocol Last Admin: 12/16/20 10:07 Dose: Not Given Documented by: Iopamidol (Iopamidol 755 Mg/Ml 100 Ml Bottle) 100 ml IVPUSH ONETIME ONE Stop: 12/08/20 08:53 Last Admin: 12/08/20 10:18 Dose: 100 ml Documented by: Lorazepam (Lorazepam 2 Mg/Ml Sdv) 0.5 mg IVPUSH Q2H PRN PRN Reason: Anxiety Last Admin: 12/13/20 19:04 Dose: 0.5 mg Documented by: Lorazepam (Lorazepam 2 Mg/Ml Sdv) Confirm Administered Dose 2 mg .ROUTE .STK-MED ONE Stop: 12/13/20 14:18 Last Admin: 12/13/20 14:43 Dose: Not Given Documented by: Lorazepam (Lorazepam 2 Mg/Ml Sdv) 6 mg IVPUSH ONETIME ONE Stop: 12/16/20 09:00 Last Admin: 12/16/20 09:23 Dose: 6 mg Documented by: Lorazepam (Lorazepam 2 Mg/Ml Sdv) 6 mg IVPUSH ONETIME PRN PRN Reason: ANXIETY Last Admin: 12/16/20 09:34 Dose: 6 mg Documented by: Lorazepam (Lorazepam 2 Mg/Ml Sdv) 6 mg IVPUSH ONETIME [facility] Last Admin: 12/16/20 10:58 Dose: 6 mg Documented by: Lorazepam (Lorazepam 2 Mg/Ml Sdv) 6 mg IVPUSH ONETIME ONE Stop: 12/16/20 10:31 Last Admin: 12/16/20 09:57 Dose: 6 mg Documented by: Methylprednisolone Sodium Succinate (Methylprednisolone Sodium Succinate 40 Mg/1 Ml Sdv) 60 mg IVPUSH Q6H [facility] Last Admin: 12/16/20 10:07 Dose: Not Given Documented by: Metoprolol Succinate (Metoprolol Succinate 50 Mg Tab.Er) 50 mg PO DAILY [facility] Last Admin: 12/16/20 10:06 Dose: Not Given Documented by: Morphine Sulfate (Morphine 4 Mg/Ml Syringe) 10 mg IVPUSH ONETIME ONE Stop: 12/16/20 08:59 Last Admin: 12/16/20 09:27 Dose: 10 mg Documented by: Morphine Sulfate (Morphine 4 Mg/Ml Syringe) 10 mg IVPUSH Q6H PRN PRN Reason: PER MD Morphine Sulfate (Morphine 10 Mg/Ml Sdv) 10 mg IVPUSH ONETIME ONE Stop: 12/16/20 10:01 Last Admin: 12/16/20 11:02 Dose: 10 mg Documented by: Morphine Sulfate (Morphine 10 Mg/Ml Sdv) 10 mg IVPUSH ONETIME ONE Stop: 12/16/20 10:31 Last Admin: 12/16/20 10:11 Dose: 10 mg Documented by: Ondansetron HCl (Ondansetron 4 Mg Tab.Dis) 4 mg PO Q4H PRN PRN Reason: nausea, able to take PO Last Admin: 12/08/20 09:57 Dose: 4 mg Documented by: Pantoprazole Sodium (Pantoprazole 40 Mg Tab.Cr) 40 mg PO DAILY [facility] Last Admin: 12/16/20 10:06 Dose: Not Given Documented by: Potassium Chloride (Potassium Chloride 20 Meq Tab.Er) 20 meq PO TID [facility] Last Admin: 12/16/20 10:06 Dose: Not Given Documented by: Sertraline HCl (Sertraline 50 Mg Tab) 50 mg PO DAILY [facility] Last Admin: 12/16/20 10:06 Dose: Not Given Documented by: Sodium Chloride (Sodium Chloride 0.9% 10 Ml Syringe) 10 ml FLUSH ASDIRECTED PRN PRN Reason: Keep Vein Open Last Admin: 12/06/20 18:28 Dose: 10 ml Documented by: Sodium Chloride (Sodium Chloride 0.9% 10 Ml Syringe) 10 ml FLUSH ONETIME PRN PRN Reason: IV FLUSH Stop: 12/08/20 12:00 Last Admin: 12/08/20 10:18 Dose: 10 ml Documented by: Temazepam (Temazepam 15 Mg Cap) 15 mg PO BEDTIME PRN PRN Reason: Sleep Torsemide (Torsemide 20 Mg Tab) 20 mg PO DAILY ADRIANA Last Admin: 12/16/20 10:07 Dose: Not Given Documented by: Comments:: exam as per hospital course above. *Q Meaningful Use (DIS) - VTE *Q VTE Mechanical Contraindications *Q: At Risk for Falls VTE Pharmacological Contraindications *Q: Risk of Bleeding
[2020-12-17] MEDS ORDERED: Morphine 50 MG in Sodium Chloride 0.9% 45 ML IV SCH (04:00)
== END 2020-12-16 17:35 | disposition expired | DRG 177 ==
LOC: JD.ED 17:01 → JD.MS 19:36
PROVIDERS: ADMIT Internal Medicine; ATTEND Internal Medicine
PROC: XW033E5 Introduction of Remdesivir Anti-infective into Peripheral Vein, Percutaneous Approach, New Technology Group 5 (ICD-10-PCS; principal; 2020-12-06)
PROC: 5A0945A Assistance with Respiratory Ventilation, 24-96 Consecutive Hours, High Flow/Velocity Cannula (ICD-10-PCS; 2020-12-06)
PROC: XW033H5 Introduction of Tocilizumab into Peripheral Vein, Percutaneous Approach, New Technology Group 5 (ICD-10-PCS; 2020-12-06)
DX: U07.1 COVID-19 (principal); J12.82 Pneumonia due to coronavirus disease 2019; R09.02 Hypoxemia; J96.01 Acute respiratory failure with hypoxia; I50.43 Acute on chronic combined systolic (congestive) and diastolic (congestive) heart failure; I48.20 Chronic atrial fibrillation, unspecified; Z68.41 Body mass index [BMI] 40.0-44.9, adult; J44.0 Chronic obstructive pulmonary disease with (acute) lower respiratory infection; Z51.5 Encounter for palliative care; H54.7 Unspecified visual loss; I48.0 Paroxysmal atrial fibrillation; H91.90 Unspecified hearing loss, unspecified ear; I11.0 Hypertensive heart disease with heart failure; E78.00 Pure hypercholesterolemia, unspecified; R73.9 Hyperglycemia, unspecified; T38.0X5A Adverse effect of glucocorticoids and synthetic analogues, initial encounter; N40.0 Benign prostatic hyperplasia without lower urinary tract symptoms; G89.29 Other chronic pain; M54.9 Dorsalgia, unspecified; M10.9 Gout, unspecified; M19.90 Unspecified osteoarthritis, unspecified site; F41.9 Anxiety disorder, unspecified; F32.9 Major depressive disorder, single episode, unspecified; E66.9 Obesity, unspecified; Z96.659 Presence of unspecified artificial knee joint; E87.6 Hypokalemia; Z88.8 Allergy status to other drugs, medicaments and biological substances; Z79.899 Other long term (current) drug therapy; Z79.01 Long term (current) use of anticoagulants; I25.2 Old myocardial infarction; Z97.4 Presence of external hearing-aid; Z95.1 Presence of aortocoronary bypass graft; Z90.49 Acquired absence of other specified parts of digestive tract; Z88.5 Allergy status to narcotic agent; Z79.82 Long term (current) use of aspirin; Z99.81 Dependence on supplemental oxygen
CPT/HCPCS: 36415; 36600; 71045; 80053; 82728; 82803; 83615; 83880; 85025; 85379; 86140; 93005; U0002; 71275; 71275-26; 76705; 76705-26; 80048; 80076; 82306; 82947; 83735; 84145; 84484; 85027; 85610; 85730; 93010; 93306; 94640; 94667; 94668; 94762; 97110-GP; 97162-GP; 97530-GP; 99223; 99233; 99238; 99285; 99285-25; A9270-GY; J1815-GY; J1940; J2060; J2270; J2920; J3262; J3480; J7030; J7050; J7620-GY; J8540; Q9967